=== PATIENT | female | born 1955 | race Caucasian/White ===

== ENCOUNTER → 2021-05-30 17:31 | Outpatient (CLI) | payer OTHER, SELFPAY ==
--- NOTE | ~2021-05-30 | DEXA_ITS ---
Bone Density Report Name: Kristin Cheng Age: 66 Sex: Female Ethnicity: White Date of : 1955 Indication: osteopenia; height loss; postmenopausal Referring Provider: Noemi Abdalla Study: Bone densitometry was performed. Exam Date: May 30, 2021 Accession number: [id number] Bone Density: Region BMD T-score Z-score Classification AP Spine (L1-L4) 0.947 -0.9 0.9 Normal Femoral Neck (Left) 0.604 -2.2 -0.6 Osteopenia Total Hip (Left) 0.710 -1.9 -0.6 Osteopenia Femoral Neck (Right) 0.642 -1.9 -0.3 Osteopenia Total Hip (Right) 0.776 -1.4 -0.1 Osteopenia Total Hip Mean 0.743 -1.7 -0.4 Osteopenia World Health Organization criteria for BMD impression classify patients as: Normal (T-score at or above -1.0), Osteopenia (T-score between -1.0 and -2.5), or Osteoporosis (T-score at or below -2.5). 10-year Fracture Risk(1): Major Osteoporotic Fracture 12% Hip Fracture 2.0% Reported Risk Factors: [place] (), Neck BMD=0.604, BMI=25.6 (1) FRAX(R) Version 3.08. Fracture probability calculated for an untreated patient. Fracture probability may be lower if the patient has received treatment. Previous Exams: Region Exam Age BMD T-score BMD Change BMD Change Date g/cm2 vs Baseline vs Previous AP Spine(L1-L4) 05/30/2021 66 0.947 -0.9 -0.158* -0.027* 01/14/2016 60 0.974 -0.7 -0.131* -0.048* 12/08/2011 56 1.022 -0.2 -0.083* -0.083* 01/28/2008 52 1.105 0.5 Total Hip(Left) 05/30/2021 66 0.710 -1.9 -0.189* -0.012 01/14/2016 60 0.722 -1.8 -0.177* -0.034* 12/08/2011 56 0.756 -1.5 -0.143* -0.143* 01/28/2008 52 0.899 -0.4 Total Hip(Right) 05/30/2021 66 0.776 -1.4 -0.226* -0.037* 01/14/2016 60 0.813 -1.1 -0.189* -0.027 12/08/2011 56 0.839 -0.8 -0.163* -0.163* 01/28/2008 52 1.002 0.5 *Denotes significance at 95% confidence level, LSC for AP Spine = 0.022 g/cm2, LSC for Total Hip = 0.027 g/cm2 Clinical Information Provided by Patient: Has used the following medications: Vitamin D, Calcium, MTV Patient maximum height was 65.5 Menopause Age: 52 Drinks caffeinated beverages Onset of menses at age 13 Number of children 1 Impression: The patient has low bone mass, based on the Left Femoral Neck T-score. The patient has an estimated ten-year risk of h
== END ==
PROVIDERS: Visit Provider Obstetrics & Gynecology
DX: Z13.820 Encounter for screening for osteoporosis (principal); M85.852 Other specified disorders of bone density and structure, left thigh; M85.851 Other specified disorders of bone density and structure, right thigh
CPT/HCPCS: 77080

== ENCOUNTER 2022-07-07 13:31 | Emergency (ER) | payer OTHER, SELFPAY ==
--- NOTE | 2022-07-07 13:34 | ED.EYEPROB ---
HPI - Eye Problem General Chief complaint: Eye Problems Stated complaint: Pain in right eye Time Seen by Provider: 07/07/22 13:34 Source: patient Mode of arrival: ambulatory Limitations: no limitations History of Present Illness HPI Narrative: Ms. Cheng is a 67-year-old female patient presenting to the clinic today with complaints of right eye pain x1 to 2 days She reports she has pain to the right upper lateral eyelid she is unsure if she has any pain in her eye. She denies getting anything in her eye or any injury to her right eye. She denies any eye drainage. Denies any fever or chills Related Data Allergies Allergy/AdvReac Type Severity Reaction Status Date / Time No Known Allergies Allergy Mild Verified 07/07/22 13:42 Review of Systems Review of Systems: Pertinent positives per HPI. Patient denies any fever, chills, rash, headache, visual changes, dizziness, cough, runny nose, sore throat, shortness of breath, chest pain, palpitations, nausea, vomiting, diarrhea, constipation, abdominal pain, or any urinary issues. [facility] Family History Family History Mother Family history of pancreatic cancer Father Family history of lung cancer Social History Social History Smoking status: Never smoker Alcohol intake: current Comments At the time of my signature, I reviewed and agree with the nursing past medical, surgical, social, and family history. There is no relevant family history pertinent to the patient complaint. Exam Narrative: General: Well-developed, well nourished, in no apparent distress Head: Normocephalic, atraumatic Eyes: Pupils equally round and reactive to light bilaterally, EOM intact, sclera and conjunctive clear, no discharge, mild right upper eyelid swelling with tenderness to the lateral aspect of the outer eyelid, no visible pustule or lesions seen. No foreign body noted, has a small lesion to the right lower outer lid but this is nontender. Patient has mascara that is new and possibly may be allergic reaction Ears: TMs intact and clear, ear canals clear, no drainage, grossly hearing normal. Nose: Nares patent, no discharge, no inflammation, no sinus tenderness. Mouth: Oropharynx without lesions or masses, good dentition, MMM. Neck: Supple, trachea midline, no enlargement of anterior or posterior cervical nodes, no thyroid masses or goiter palpable. Cardio: Regular rate and rhythm, s1 and s2 normal, no murmur appreciated. Resp: Clear to auscultation bilaterally anteriorly and posteriorly, no rhonchi, rales, wheezing or rubs Course Course Emergency Course: Portions of this record may have been created with voice recognition software. Level of Care: Express Care Visit Vital Signs Vital signs: Vital signs reviewed MDM - Eye Problem MDM Narrative Medical decision making narrative: At the time of visit patient was resting comfortably on the exam table. Logan lamp exam performed and was negative for any sign of corneal abrasion. No obvious foreign body noted in the eye. Does have a small lesion to the right lower eyelid however this is not where the patient's pain is she has pain to the right upper eyelid where it is mildly swelling. No obvious pustule or lesion noted to this part I suspect the patient may be having allergic reaction to her mascara since this is relatively new. I will place her on a prescription for some TobraDex just to cover any source of bacteria as well as use of the steroid. Supportive measures were discussed with the patient and she voiced understanding of discharge instructions. Discharge Plan Discharge Clinical Impression: Pain and swelling of eyelid of right eye Patient Disposition: Home, Self-Care Condition: Stable Instructions: Antibiotic Form, Eye Pain (ED) Additional Instructions: Apply TobraDex eye drops as prescribed
[2022-07-07 13:42] VITALS: BP 158/70; PULSE 71; RESP 16; TEMP 36.9; O2SAT 99
[2022-07-07] MEDS: FLUORESCEIN SOD 1 MG/STRIP EACH EYE (14:00)
[2022-07-07] MEDS: TETRACAINE HCL 0.5% OPHTH SOLN 4 ML BTL 1 DROP EACH EYE (14:00)
[2022-07-07] MEDS: DACRIOSE EYE IRRIGATION 118 ML BOTTLE 30 ML RIGHT EYE (14:00)
== END 2022-07-07 14:10 | disposition home or self-care (01) ==
PROVIDERS: Emergency Provider Nurse Practitioner Family; PCP Family Medicine Adolescent Medicine
DX: H57.11 Ocular pain, right eye (principal); H02.841 Edema of right upper eyelid
CPT/HCPCS: 99213; A9270; G0463

== ENCOUNTER → 2023-09-21 09:38 | Outpatient (CLI) | payer OTHER, SELFPAY ==
--- NOTE | ~2023-09-21 | DEXA_ITS ---
Bone Density Report Name: KETAN PATRICK Age: 68 Sex: Female Ethnicity: White Date of : 1955 Indication: osteopenia; height loss; prior fracture; postmenopausal Referring Provider: Noemi Abdalla Study: Bone densitometry was performed. Exam Date: September 21, 2023 Accession number: [id number] Bone Density: Region BMD T-score Z-score Classification AP Spine (L1-L4) 0.966 -0.7 1.3 Normal Femoral Neck (Left) 0.588 -2.3 -0.6 Osteopenia Total Hip (Left) 0.712 -1.9 -0.5 Osteopenia Femoral Neck (Right) 0.624 -2.0 -0.3 Osteopenia Total Hip (Right) 0.787 -1.3 0.1 Osteopenia Total Hip Mean 0.750 -1.6 -0.2 Osteopenia World Health Organization criteria for BMD impression classify patients as: Normal (T-score at or above -1.0), Osteopenia (T-score between -1.0 and -2.5), or Osteoporosis (T-score at or below -2.5). 10-year Fracture Risk(1): Major Osteoporotic Fracture 20% Hip Fracture 4.1% Reported Risk Factors: [place] (), Neck BMD=0.588, BMI=25.7, previous fracture (1) FRAX(R) Version 3.08. Fracture probability calculated for an untreated patient. Fracture probability may be lower if the patient has received treatment. Previous Exams: Region Exam Age BMD T-score BMD Change BMD Change Date g/cm2 vs Baseline vs Previous AP Spine(L1-L4) 09/21/2023 68 0.966 -0.7 -0.140* 0.019 05/30/2021 66 0.947 -0.9 -0.158* -0.027* 01/14/2016 60 0.974 -0.7 -0.131* -0.048* 12/08/2011 56 1.022 -0.2 -0.083* -0.083* 01/28/2008 52 1.105 0.5 Total Hip(Left) 09/21/2023 68 0.712 -1.9 -0.186* 0.003 05/30/2021 66 0.710 -1.9 -0.189* -0.012 01/14/2016 60 0.722 -1.8 -0.177* -0.034* 12/08/2011 56 0.756 -1.5 -0.143* -0.143* 01/28/2008 52 0.899 -0.4 Total Hip(Right) 09/21/2023 68 0.787 -1.3 -0.215* 0.011 05/30/2021 66 0.776 -1.4 -0.226* -0.037* 01/14/2016 60 0.813 -1.1 -0.189* -0.027 12/08/2011 56 0.839 -0.8 -0.163* -0.163* 01/28/2008 52 1.002 0.5 *Denotes significance at 95% confidence level, LSC for AP Spine = 0.022 g/cm2, LSC for Total Hip = 0.027 g/cm2 Clinical Information Provided by Patient: Has had a low trauma fracture Has used the following medications: Vitamin D, Calcium, MTV Patient maximum height was 65.5 Menopause Age: 53 No regular weight melissa
== END ==
PROVIDERS: PCP Obstetrics & Gynecology; Visit Provider Obstetrics & Gynecology
DX: Z78.0 Asymptomatic menopausal state (principal); M85.89 Other specified disorders of bone density and structure, multiple sites
CPT/HCPCS: 77080

== ENCOUNTER 2024-07-29 02:34 | Day surgery (SDC) | payer OTHER, SELFPAY ==
[2024-07-07 14:41] VITALS: BMI 24.7
[2024-07-29 06:49] VITALS: BP 160/74; PULSE 70; RESP 18; TEMP 36.6; O2SAT 98; BMI 23.9
[2024-07-29] MEDS: LACTATED RINGERS 1,000 ML 150 ML IV CONT (07:08)
--- NOTE | 2024-07-29 08:02 | WPDANESEPPF ---
Anes - Initial Pre Proc Eval Procedure: Operation Date: 07/29/24 08:30 Proposed Procedures p Esophagogastroduodenoscopy & Colonoscopy - Cristo Adams MD Date/Time: 07/29/24 08:02 Surgeon: Cristo Adams MD Pre Op Diagnosis: Dysphagia, GERD, Pers. Hx. colon Polyps Patient Data Age: 69 Gender: F Height: 1.63 m Weight: 63.2 kg Last Vital Signs Temp 97.9 F 07/29/24 06:49 Pulse 70 07/29/24 06:49 Resp 18 07/29/24 06:49 BP 160/74 H 07/29/24 06:49 Pulse Ox 98 07/29/24 06:49 O2 Del Method Room Air 07/29/24 06:49 Allergies Allergy/AdvReac Type Severity Reaction Status Date / Time No Known Allergies Allergy Mild Verified 07/29/24 06:57 Home Medications Medication Instructions Recorded Confirmed Type alendronate 35 mg tablet 35 mg PO WEEKLY 04/07/24 07/29/24 History calcium carbonate (Calcium 500) 500 mg PO DAILY 04/07/24 07/29/24 History cholecalciferol (vitamin D3) 10 10 mcg PO DAILY 04/07/24 07/29/24 History mcg (400 unit) capsule (Vitamin D3) magnesium 250 mg tablet 250 mg PO DAILY 04/07/24 07/29/24 History multivitamin 1 tablet PO .TIW 04/07/24 07/29/24 History omeprazole 20 mg capsule,delayed 40 mg PO DAILY #90 caps 04/07/24 07/29/24 Rx release colestipol 1 gram tablet 1 g PO DAILY #30 tabs 05/06/24 07/29/24 Rx ondansetron HCl 4 mg tablet 4 mg PO Q8H PRN nausea and 05/06/24 07/29/24 Rx vomiting #10 tabs Patient hx anesthesia problems: none Family hx anesthesia problems: none Results Review: All pre-operative results and documents have been reviewed as part of the pre-operative evaluation. [facility] Past Medical History Medical History Gastroesophageal reflux disease Irritable bowel syndrome Osteopenia Family History Family History Mother Family history of pancreatic cancer Heart problem Father Family history of lung cancer Alcoholism Other Diabetes mellitus Hypertension Heart problem Grandparent Breast cancer Grandparent Cerebrovascular accident Social History Social History Smoking status: Never smoker Alcohol intake: never Alcohol use details: States she drinks wine very seldom Substance use: never Substance use type: does not use Living arrangements: alone Spiritual care concerns: No Anes - Eval Final PreProcedure Day of Procedure 07/29/24 08:02 Patient weight: normal Heart: regular rate and rhythm Lungs: clear to auscultation Airway: Mallampati scale class II Neurological: alert and oriented Last oral intake: >/= 8 hours ASA classification: II Emergent: no Anesthetic plan: proceed Anesthesia type and monitoring: general GIVS and standard monitoring Results Review: All pre-operative results and documents have been reviewed as part of the pre-operative evaluation. Informed Consent: The patient's anesthetic plan and its attendant risks and benefits were discussed with the patient/family/POA. Questions were solicited and answers provided to the satisfaction of the patient/family/POA.
--- NOTE | 2024-07-29 08:07 | PM.HPGS ---
History of Present Illness History of Present Illness Consent: Risks, benefits, and alternatives have been discussed and questions answered. Patient agrees to proceed with procedure. Chief complaint: Dysphagia, GERD, Pers. Hx. colon Polyps Narrative: Kristin Cheng is a 69 year old female here for egd/colonoscopy, last time had both was 10 years ago, she has more gerd symptom using omeprazole every 2-3 days Review of Systems Review of Systems: All systems reviewed & are unremarkable except as noted in HPI and below PMFSH Past Medical History Medical History Gastroesophageal reflux disease Irritable bowel syndrome Osteopenia Family History Family History Mother Family history of pancreatic cancer Heart problem Father Family history of lung cancer Alcoholism Other Diabetes mellitus Hypertension Heart problem Grandparent Breast cancer Grandparent Cerebrovascular accident Social History Social History Smoking status: Never smoker Alcohol intake: never Alcohol use details: States she drinks wine very seldom Substance use: never Substance use type: does not use Living arrangements: alone Spiritual care concerns: No Meds Home Medications and Allergies Home Medications Medication Instructions Recorded Confirmed Type alendronate 35 mg tablet 35 mg PO WEEKLY 04/07/24 07/29/24 History calcium carbonate (Calcium 500) 500 mg PO DAILY 04/07/24 07/29/24 History cholecalciferol (vitamin D3) 10 10 mcg PO DAILY 04/07/24 07/29/24 History mcg (400 unit) capsule (Vitamin D3) magnesium 250 mg tablet 250 mg PO DAILY 04/07/24 07/29/24 History multivitamin 1 tablet PO .TIW 04/07/24 07/29/24 History omeprazole 20 mg capsule,delayed 40 mg PO DAILY #90 caps 04/07/24 07/29/24 Rx release colestipol 1 gram tablet 1 g PO DAILY #30 tabs 05/06/24 07/29/24 Rx ondansetron HCl 4 mg tablet 4 mg PO Q8H PRN nausea and 05/06/24 07/29/24 Rx vomiting #10 tabs Allergies Allergy/AdvReac Type Severity Reaction Status Date / Time No Known Allergies Allergy Mild Verified 07/29/24 06:57 Vital Signs Vital Signs - 24 hr 07/29/24 06:49 Temperature 97.9 F Pulse Rate 70 Respiratory Rate 18 Blood Pressure 160/74 H Pulse Oximetry 98 Oxygen Delivery Room Air Exam Const: General: comfortable and no acute distress HENMT: Face/Nose/Sinus: Normal nares present Eyes: General: appearance normal, both eyes and all related structures Neck: Neck: no JVD Resp: Auscultation: clear to auscultation bilaterally Cardio: Rate: regular rate Rhythm: regular rhythm GI: Inspection: non-distended GI Palp: Yes Soft to palpation Skin: General skin exam: normal color Neuro: General: gait normal Speech: normal speech Extrem: General: normal to inspection Psych: Mental Status: mental status grossly normal Assessment and Plan Assessment and plan (1) Gastroesophageal reflux disease: Code(s): K21.9 - Gastro-esophageal reflux disease without esophagitis Status: Acute Assessment and Plan: egd using ppi as needed (2) Colon cancer screening: Code(s): Z12.11 - Encounter for screening for malignant neoplasm of colon Status: Acute Assessment and Plan: colonoscopy
--- NOTE | 2024-07-29 08:25 | SUR.OPER ---
EGD [id number]. Colon start time 08.
[2024-07-29 08:38] VITALS: BP 130/66; PULSE 74; RESP 17; O2SAT 100
[2024-07-29 08:48] VITALS: BP 129/65; PULSE 66; RESP 27; O2SAT 100
[2024-07-29 08:58] VITALS: BP 154/70; PULSE 62; RESP 15; O2SAT 100
== END 2024-07-29 09:09 | disposition home or self-care (01) ==
PROVIDERS: PCP Nurse Practitioner Family; Referring Provider Nurse Practitioner; Visit Provider Internal Medicine Gastroenterology
PROC: 0DJ08ZZ Inspection of Upper Intestinal Tract, Via Natural or Artificial Opening Endoscopic (ICD-10-PCS; CPT 43235; principal; 2024-07-29 08:30)
DX: Z12.11 Encounter for screening for malignant neoplasm of colon (principal); K64.8 Other hemorrhoids; K57.30 Diverticulosis of large intestine without perforation or abscess without bleeding; K21.9 Gastro-esophageal reflux disease without esophagitis; K44.9 Diaphragmatic hernia without obstruction or gangrene; K22.2 Esophageal obstruction; K29.70 Gastritis, unspecified, without bleeding; K31.7 Polyp of stomach and duodenum; K58.9 Irritable bowel syndrome, unspecified; M85.88 Other specified disorders of bone density and structure, other site; Z79.82 Long term (current) use of aspirin; Z86.010 Personal history of colon polyps; Z80.1 Family history of malignant neoplasm of trachea, bronchus and lung; Z80.0 Family history of malignant neoplasm of digestive organs; Z80.3 Family history of malignant neoplasm of breast; Z82.49 Family history of ischemic heart disease and other diseases of the circulatory system
CPT/HCPCS: 43249; 45378; 88305; C1726; J2001; J2704; J7120

== ENCOUNTER 2024-11-06 07:17 | Outpatient (CLI) | payer OTHER, SELFPAY ==
[2024-11-06 08:17] LABS: Hematocrit 39.8 % (37.0-47.0); INR 0.9; Mean Corpuscular HGB Conc 32.7 g/dl (32-36); Mean Corpuscular Hemoglobin 29.9 pg (26-34); Mean Corpuscular Volume 91.5 fl (80-100); Mean Platelet Volume 9.3 fl (7.4-10.4); Platelet Count Result 428 k/mm3 (150-375); Prothrombin Time 12.8 Seconds (11.1-14.7); Red Blood Count 4.35 M/mm3 (4.2-5.4); Red Cell Distribution Width 13.3 % (11.5-14.5); White Blood Count 6.8 K/mm3 (4.5-10.0)
[2024-11-06 08:22] LABS: Alanine Aminotransferase 17 U/L (6-35); Albumin Level 4.3 g/dL (3.5-5.1); Alkaline Phosphatase 62 U/L (38-126); Anion Gap 4 mmol/L (4-12); Aspartate Amino Transferase 25 U/L (14-36); Blood Urea Nitrogen 14 mg/dL (7-17); Calcium 9.2 mg/dL (8.4-10.2); Carbon Dioxide 27 mmol/L (22-30); Chloride 107 mmol/L (98-107); Estimated Glomerular Filt Rate > 60; Glucose 102 mg/dL (65-110); Sodium 138 mmol/L (137-145)
== END 2024-11-06 07:18 | disposition home or self-care (01) ==
LOC: ANHLAB 07:19
PROVIDERS: PCP Nurse Practitioner Family; Visit Provider Nurse Practitioner
DX: K76.0 Fatty (change of) liver, not elsewhere classified (principal)
CPT/HCPCS: 36415; 80053; 85027; 85610

== ENCOUNTER 2024-12-23 07:56 | Outpatient (CLI) | payer MEDICARE, OTHER, SELFPAY ==
--- OUTSIDE RECORDS SUMMARY | 2024-12-23 08:00 | XMS_ITS | Data Portability ---
Author Organization [facility] [place] Address [address] [place] [address] Assessment Encounter Date Assessment Date Assessment LastModified by Organization Details LastModified Time 09/10/2020 09/10/2020 Annual gynecological exam performed. Patient will come back in a year unless there are new symptoms. Not available 09/10/2020 09:27:19 05/10/2022 05/10/2022 Annual gynecological exam performed. Patient will come back in a year unless there are new symptoms. Not available 05/10/2022 09:34:28 05/23/2023 05/23/2023 Annual gynecological exam performed. Patient will come back in a year unless there are new symptoms. Not available 05/23/2023 09:26:56 09/24/2024 09/24/2024 Annual gynecological exam performed. Patient will come back in a year unless there are new symptoms. Not available 09/24/2024 09:28:49 Plan of Treatment Reminders Order Date Submit Date Provider Last Modified By Organization Details Last Modified Time Details Appointments None recorded. Lab vitamin D, 25-hydroxy, total, serum 2019 020 [email or web address] [facility] ([facility]), [address], [place], [address], 09:44:06 CBC 2019 020 [email or web address] [facility] ([facility]), [address] [facility] [address] , [address], [place], [address], 1 12:35:48 TSH, serum or plasma 2019 020 [email or web address] [facility] ([facility]), [address] [place] [address] [address], [place], [address], 1 12:35:48 CMP, serum or plasma 2019 020 [email or web address] [facility]), [address] [place] [address] [address], [place], [address], 1 12:35:48 lipid panel, serum 2019 020 [email or web address] [facility] ([facility]), [address] [place] [address] [address], [place], [address], 1 12:35:48 urinalysis, dipstick 2019 020 [email or web address] [place], [facility] [address], [address], [place], [address], 0 22:10:23 Referral None recorded. Procedures None recorded. Surgeries None recorded. Imaging None recorded. Medication Orders alendronate 35 mg tablet 2022 024 [id number], [address] [facility], [place], [place], [id number], 4 09:30:46 Patient TargetsNo targets recorded. Patient InstructionsNo instructions recorded. Reason for Referral None Reported. Results Created Date Observation Date Name Description Value Unit Range Abnormal Flag Note LastModifiedBy Organization Detail LastModifiedTime 09/10/2009/14/2020 cultu re, urine specimen source Urine - Void Not Available [facility] ([facility]) [address] [place] [address] [address], [place], [address], 09/14/2020 04:45:50 09/10/20 20 09/14/2020 cultu re, urine culture, urine See Below No growt h Not Available [facility] ([facility]) [address], [place], [address], 09/14/2020 04:45:50 09/10/20 20 09/14/2020 pap, LB Pap test thin prep Negati ve for Intrae pithel ial Lesion or Malign katey normal ACCES CARLOZ #: [id number] Sourc e: Cervi xiao/E ndoce rvica l LMP: 11/18 Date Taken : 09/10 Speci men Type: ThinP rep Vial Date Repor alexander: 09/14 Clini xiao Data: Cytot ech: Jefe Kaufman z, CT( CP) Date Repor alexander: 09/14 Speci men Adequ acy: Satis facto ry for evalu ation Gener al Categ oriza tion: NEGAT CARMEN FOR INTRA EPITH ELIAL LESIO N OR MALIG ANAY Inter preta tion/ Resul t: Atrop hy This speci men has been rose zed by the ThinP rep Imagi ng Syste m, an inter activ e compu ter syste m which david ts the lab in the scree tiffany of ThinP rep Pap Test slide s. Follo wing imagi ng, the slide was revie wed by a Cytot echno logis t and/o r Patho logis t. End of Repor t Techn ical servi leonard provi ded by [facility] log[facility] [employer], [address] [place] [address] Emil Ribeiro MD, Labor atory Direc tor. Case revie wed and diagn osis rende red at [facility] iated Patho logis [employer] [facility], d/b/a Path [facility], [address] [place] [address] Emil Ribeiro MD, Labor atory Direc tor. CONFI DENTI AL Not Available [facility] ([facility]) [address], [place], [address], 09/14/2020 10:56:54 09/10/2009/10/2020 urina lysis , dipst ick Leukocytes TRACE Not Available [facility] [address], [place], [address], 09/10/2020 09:38:36 09/10/20 20 09/10/2020 urina lysis , dipst ick Blood +++ Not Available [place] [address], [place], [address], 09/10/2020 09:38:36 05/10/20 21 05/10/2021 CBC w/ auto diff WBC 6.3 10'3/ uL 3.6-10 .2 Not Available [facility] (Lab) [address], [place], [address], 05/11/2021 04:09:05 05/10/20 21 05/10/2021 CBC w/ auto diff RBC 4.50 10'6/ uL (based on docume nted legal sex) 4.10-5 .30 Not Available [facility] (Lab) [address], [place], [address], 05/11/2021 04:09:05 05/10/20 21 05/10/2021 CBC w/ auto diff HGB 13.3 g/dL (based on docume nted legal sex) 11.9-1 5.8 Not Available [facility] (Lab) [address], [place], [address], 05/11/2021 04:09:05 05/10/20 21 05/10/2021 CBC w/ auto diff HCT 41.3 % (based on docume nted legal sex) 37.4-4 8.3 Not Available [facility] (Lab) [address] [place], [address], 05/11/2021 04:09:05 05/10/20 21 05/10/2021 CBC w/ auto diff MCV 93.0 fL 82.0-9 9.0 Not Available [facility] (Lab) [address], [place], [address], 05/11/2021 04:09:05 05/10/20 21 05/10/2021 CBC w/ auto diff MCH 30.0 pg 27.0-3 3.0 Not Available [facility] (Lab) [address] [facility], [place], [address], 05/11/2021 04:09:05 05/10/20 21 05/10/2021 CBC w/ auto diff MCHC 32.0 g/dL 32.0-3 6.0 Not Available [facility] (Lab) [address], [place], [address], 05/11/2021 04:09:05 05/10/20 21 05/10/2021 CBC w/ auto diff RDW 13.0 % 11.0-1 5.0 Not Available [facility] (Lab) [address], [place], [address], 05/11/2021 04:09:05 05/10/20 21 05/10/2021 CBC w/ auto diff plt 464 10'3/ uL 150-45 0 high Not Available [facility] (Lab) [address] [facility], [place], [address], 05/11/2021 04:09:05 05/10/20 21 05/10/2021 CBC w/ auto diff MPV 9.7 fL Not Available [facility] (Lab) [address], [place], [address], 05/11/2021 04:09:05 05/10/20 21 05/10/2021 CBC w/ auto diff NRBC's 0.00 % 0 Not Available [facility] (Lab) [address] [place], [address], 05/11/2021 04:09:05 05/10/20 21 05/10/2021 CBC w/ auto diff absolute NRBCs 0.0 10'3/ uL 0 Not Available [facility] (Lab) [address] [place], [address], 05/11/2021 04:09:05 05/10/20 21 05/10/2021 CBC w/ auto diff neutrophils 54.0 % 37.0-7 2.0 Not Available [facility] (Lab) [address] [place], [address], 05/11/2021 04:09:05 05/10/20 21 05/10/2021 CBC w/ auto diff lymphocytes 35.0 % 16.0-4 8.0 Not Available [facility] (Lab) [address] [place], [address], 05/11/2021 04:09:05 05/10/20 21 05/10/2021 CBC w/ auto diff monocytes 9.0 % 4.0-14 .0 Not Available [facility] (Lab) [address] [place], [address], 05/11/2021 04:09:05 05/10/20 21 05/10/2021 CBC w/ auto diff eosinophils 1.0 % 0.0-9. 0 Not Available [facility] (Lab) [address], [place], [address], 05/11/2021 04:09:05 05/10/20 21 05/10/2021 CBC w/ auto diff basophils 1.0 % 0.0-2. 0 Not Available [facility] (Lab) [address] [place], [address], 05/11/2021 04:09:05 05/10/20 21 05/10/2021 CBC w/ auto diff immature granulocytes 0.0 % no define d refere nce range Not Available [facility] (Lab) [address] [place], [address], 05/11/2021 04:09:05 05/10/20 21 05/10/2021 CBC w/ auto diff absolute neutrophils 3.5 10'3/ uL 1.1-6. 0 Not Available [facility] (Lab) [address] [place], [address], 05/11/2021 04:09:05 05/10/20 21 05/10/2021 CBC w/ auto diff absolute lymphocytes 2.2 10'3/ uL 0.7-3. 4 Not Available [facility] (Lab) [address], [place], [address], 05/11/2021 04:09:05 05/10/20 21 05/10/2021 CBC w/ auto diff absolute monocytes 0.5 10'3/ uL 0.3-1. 0 Not Available [facility] (Lab) [address], [place], [address], 05/11/2021 04:09:05 05/10/20 21 05/10/2021 CBC w/ auto diff absolute eosinophils 0.1 10'3/ uL 0.0-0. 6 Not Available [facility] (Lab) [address] [place], [address], 05/11/2021 04:09:05 05/10/20 21 05/10/2021 CBC w/ auto diff absolute basophils 0.1 10'3/ uL 0.0-0. 1 Not Available [facility] (Lab) [address] [place], [address], 05/11/2021 04:09:05 05/10/20 21 05/10/2021 CBC w/ auto diff absolute immature granulocytes 0.00 10'3/ uL 0.00-0 .10 2020 2:11 AM: P indic ates parti al resul ts on a panel have been relea sed. Addit ional resul ts will follo w. 2020 2:11 AM: This resul t has been final verif ied. No addit ional or hamilton ed resul ts are expec alexander. Not Available [facility] (Lab) [address], [place], [address], 05/11/2021 04:09:05 05/10/20 21 05/10/2021 lipid panel , blood total cholesterol 187 mg/dL 0-199 Not Available [facility] (Lab) [address] [place], [address], 05/11/2021 04:09:05 05/10/20 21 05/10/2021 lipid panel , blood triglyceride s 117 mg/dL 0.00-1 50.00 NCEP Refer ence Value s for Trigl yceri quinton: Wendy l: <150 mg/dL Borde rline High: 150 - 199 mg/dL High: 200 - 499 mg/dL Very High: >/= 500 mg/dL Not Available [facility] (Lab) [address] [place], [address], 05/11/2021 04:09:05 05/10/20 21 05/10/2021 lipid panel , blood HDL cholesterol 62 mg/dL 23-92 Not Available [facility] (Lab) [address] [place], [address], 05/11/2021 04:09:05 05/10/20 21 05/10/2021 lipid panel , blood LDL cholesterol 102 mg/dL 0-99 high Cutof f value s recom jacques d by the Natwm nal Bernice stero l Educa tion Progr am: YESENIA ABLE: Bernice stero l <200 mg/dL LDL <100 mg/dL BORDE RLINE : Bernice stero l 200-2 39 mg/dL LDL 101-1 59 mg/dL HIGHE R RISK: Bernice stero l >240 mg/dL LDL >160 mg/dL , HDL <40 mg/dL Not Available [facility] (Lab) [address] [place], [address], 05/11/2021 04:09:05 05/10/20 21 05/10/2021 lipid panel , blood non-HDL cholesterol 125 mg/dL no refere nce range A reaso nable goal for non-H DL bernice stero l is one that is 30 mg/dL highe r than the LDL bernice stero l goal. Not Available [facility] (Lab) [address], [place], [address], 05/11/2021 04:09:05 05/10/20 21 05/10/2021 lipid panel , blood chol/HDL ratio 3.0 . 0.0-5. 0 Not Available [facility] (Lab) [address], [place], [address], 05/11/2021 04:09:05 05/10/20 21 05/10/2021 CMP, serum or plasm a sodium 141 mmol/ L 136-14 5 Not Available [facility] (Lab) [address], [place], [address], 05/11/2021 04:09:06 05/10/20 21 05/10/2021 CMP, serum or plasm a potassium 4.5 mmol/ L 3.5-5. 1 Not Available [facility] (Lab) [address] [place], [address], 05/11/2021 04:09:06 05/10/20 21 05/10/2021 CMP, serum or plasm a chloride 107 mmol/ L 98-107 Not Available [facility] (Lab) [address] [place], [address], 05/11/2021 04:09:06 05/10/2005/10/2021 CMP, serum or plasm a carbon dioxide 26 mmol/ L 21-31 Not Available [facility] (Lab) [address] [place], [address], 05/11/2021 04:09:06 05/10/20 21 05/10/2021 CMP, serum or plasm a anion gap 8 mmol/ L 4-13 Not Available [facility] (Lab) [address] [place], [address], 05/11/2021 04:09:06 05/10/20 21 05/10/2021 CMP, serum or plasm a blood urea nitrogen 10 mg/dL 7-25 Not Available [facility] (Lab) [address] [place], [address], 05/11/2021 04:09:06 05/10/20 21 05/10/2021 CMP, serum or plasm a creatinine 0.62 mg/dL 0.60-1 .30 Not Available [facility] (Lab) [address], [place], [address], 05/11/2021 04:09:06 05/10/20 21 05/10/2021 CMP, serum or plasm a GFR () 117 mL/mi n/1.7 3_m2 60-300 Not Available [facility] (Lab) [address] [place], [address], 05/11/2021 04:09:06 05/10/20 21 05/10/2021 CMP, serum or plasm a GFR (others) 96 mL/mi n/1.7 3_m2 60-300 Not Available [facility] (Lab) [address] [place], [address], 05/11/2021 04:09:06 05/10/20 21 05/10/2021 CMP, serum or plasm a calcium 9.7 mg/dL 8.6-10 .2 Not Available [facility] (Lab) [address] [place], [address], 05/11/2021 04:09:06 05/10/20 21 05/10/2021 CMP, serum or plasm a glucose 93 mg/dL 70-100 Not Available [facility] (Lab) [address] [place], [address], 05/11/2021 04:09:06 05/10/20 21 05/10/2021 CMP, serum or plasm a protein, total 6.6 g/dL 6.4-8. 3 Not Available [facility] (Lab) [address], [place], [address], 05/11/2021 04:09:06 05/10/20 21 05/10/2021 CMP, serum or plasm a albumin 4.4 g/dL 3.5-5. 0 Not Available [facility] (Lab) [address] [place], [address], 05/11/2021 04:09:06 05/10/20 21 05/10/2021 CMP, serum or plasm a ALT 17 units /L 9-43 Not Available [facility] (Lab) [address] [place], [address], 05/11/2021 04:09:06 05/10/20 21 05/10/2021 CMP, serum or plasm a alkaline phosphatase 69 units /L 34-104 Not Available [facility] (Lab) [address] [place], [address], 05/11/2021 04:09:06 05/10/20 21 05/10/2021 CMP, serum or plasm a AST 17 units /L 13-39 Not Available [facility] (Lab) [address] [place], [address], 05/11/2021 04:09:06 05/10/20 21 05/10/2021 CMP, serum or plasm a bilirubin, total 0.7 mg/dL 0.2-1. 2 Not Available [facility] (Lab) [address] [place], [address], 05/11/2021 04:09:06 05/10/20 21 05/10/2021 TSH, serum or plasm a TSH 2.57 uIU/m L 0.30-5 .33 Not Available [facility] (Lab) [address] [place], [address], 05/11/2021 04:09:06 05/10/20 21 05/10/2021 vitam in D, 25-hy droxy , total , serum vitamin D, 25-hydroxy, total 25.1 NG/mL 30-80 low NOTE: Defic iency : <20 ng/mL Insuf ficie ncy: 20-29 ng/mL Optim um Level : 30-80 ng/mL Possi ble Toxic ity: >80 ng/mL Most patie nts with toxic ity have level s >150 ng/mL . Not Available [facility] (Lab) [address], [place], [address], 05/11/2021 04:09:06 05/10/20 21 05/10/2021 URINA LYSIS , WITH MICRO SCOPI C, REFLE X CULTU RE color, urine Yellow colorl ess, light yellow , yellow , dark yellow , straw Not Available [facility] (Lab) [address] [place], [address], 05/12/2021 08:05:35 05/10/20 21 05/10/2021 URINA LYSIS , WITH MICRO SCOPI C, REFLE X CULTU RE clarity, urine Slight ly Cloudy Not Available [facility] (Lab) [address] [place], [address], 05/12/2021 08:05:35 05/10/20 21 05/10/2021 URINA LYSIS , WITH MICRO SCOPI C, REFLE X CULTU RE glucose, urine Negati ve mg/dL negati ve Not Available [facility] (Lab) [address] [place], [address], 05/12/2021 08:05:35 05/10/20 21 05/10/2021 URINA LYSIS , WITH MICRO SCOPI C, REFLE X CULTU RE bilirubin, urine Negati ve mg/dL negati ve Not Available [facility] (Lab) [address] [place], [address], 05/12/2021 08:05:35 05/10/20 21 05/10/2021 URINA LYSIS , WITH MICRO SCOPI C, REFLE X CULTU RE ketones, urine Negati ve mg/dL negati ve Not Available [facility] (Lab) [address], [place], [address], 05/12/2021 08:05:35 05/10/20 21 05/10/2021 URINA LYSIS , WITH MICRO SCOPI C, REFLE X CULTU RE pH, urine 5.0 . 5.0-9. 0 Not Available [facility] (Lab) [address], [place], [address], 05/12/2021 08:05:35 05/10/20 21 05/10/2021 URINA LYSIS , WITH MICRO SCOPI C, REFLE X CULTU RE specific gravity, urine 1.019 . 1.001- 1.035 Not Available [facility] (Lab) [address], [place], [address], 05/12/2021 08:05:35 05/10/20 21 05/10/2021 URINA LYSIS , WITH MICRO SCOPI C, REFLE X CULTU RE blood, urine Small negati ve abnormal Not Available [facility] (Lab) [address] [place], [address], 05/12/2021 08:05:35 05/10/20 21 05/10/2021 URINA LYSIS , WITH MICRO SCOPI C, REFLE X CULTU RE protein, urine Negati ve mg/dL negati ve Not Available [facility] (Lab) [address] [place], [address], 05/12/2021 08:05:35 05/10/20 21 05/10/2021 URINA LYSIS , WITH MICRO SCOPI C, REFLE X CULTU RE urobilinogen , urine <2.0 mg/dL <2.0 Not Available [facility] (Lab) [address], [place], [address], 05/12/2021 08:05:35 05/10/20 21 05/10/2021 URINA LYSIS , WITH MICRO SCOPI C, REFLE X CULTU RE nitrite, urine Negati ve negati ve Not Available [facility] (Lab) [address], [place], [address], 05/12/2021 08:05:35 05/10/20 21 05/10/2021 URINA LYSIS , WITH MICRO SCOPI C, REFLE X CULTU RE leukocyte esterase, urine Large negati ve abnormal Not Available [facility] (Lab) [address], [place], [address], 05/12/2021 08:05:35 05/10/20 21 05/10/2021 URINA LYSIS , WITH MICRO SCOPI C, REFLE X CULTU RE WBC, urine 15-19 /hpf none, 0-5 abnormal Not Available [facility] (Lab) [address], [place], [address], 05/12/2021 08:05:35 05/10/20 21 05/10/2021 URINA LYSIS , WITH MICRO SCOPI C, REFLE X CULTU RE RBC, urine 0-2 /hpf none, 0-2 Not Available [facility] (Lab) [address], [place], [address], 05/12/2021 08:05:35 05/10/20 21 05/10/2021 URINA LYSIS , WITH MICRO SCOPI C, REFLE X CULTU RE bacteria, urine Trace /hpf none abnormal Not Available [facility] (Lab) [address] [place], [address], 05/12/2021 08:05:35 05/10/20 21 05/10/2021 URINA LYSIS , WITH MICRO SCOPI C, REFLE X CULTU RE squamous epithelial cells, urine Few /hpf none abnormal Not Available [facility] (Lab) [address], [place], [address], 05/12/2021 08:05:35 05/10/20 21 05/10/2021 URINA LYSIS , WITH MICRO SCOPI C, REFLE X CULTU RE non-squamous epi, urine Trace /hpf none abnormal Not Available [facility] (Lab) [address], [place], [address], 05/12/2021 08:05:35 05/10/20 21 05/10/2021 URINA LYSIS , WITH MICRO SCOPI C, REFLE X CULTU RE mucus, urine Modera te /hpf none, trace, few abnormal Urine Cultu re to follo w. Not Available [facility] (Lab) [address], [place], [address], 05/12/2021 08:05:35 05/10/20 21 05/10/2021 CULTU RE: URINE result report SEE RESULT S BELOW Test: Cultu re: Urine Speci men Sourc e: Urine Voide d Speci men Type: Urine Speci men Date: 2020 10:26 AM Resul t Date: 2020 7:02 AM Resul t Statu s: Final resul t Abnor mal: No Resul ting Lab: [facility] [address] [facility] [address] Tel: CULTU RE ----- ----- ----- --- No growt h in 1 day (dete ction level of 10,00 0 colon ies / ml.) Not Available [facility] (Lab) [address], [place], [address], 05/12/2021 08:05:36 05/10/20 22 05/10/2022 IMAGE GUIDE D PAP AND HPV REGAR DLESS image guided Pap, HPV regardless of Pap result SEE RESULT S BELOW CASE REPOR T: Cytol ogy Gynec ologi xiao Repor t Case: [id number] Autho ilsa g Provi reuben: Lyly Abdalla MD Colle cted: 05/10 1011 Order ing Locat ion: [place] Path[facility] Recei rosa isela: 05/11 0241 First Scree n: Ronna Calzada ay, CT Speci men: Scree tiffany Pap - Image d, Cervi x STATE MENT OF ADEQU ACY: Satis facto ry for evalu ation Trans forma tion zone compo nent canno t be defin itive ly ident ified due to the prese nce of atrop hy or other hormo nal hamilton es FINAL DIAGN OSIS: Negat carmen for Intra epith elial Lesio n or Johnnybhumika anay (NIL) . Atrop hic cell chloe sen. Elect bebeto cui jes d by Ronna Calzada, CT on 2021 at 10:31 AM ----- ----- ----- ----- ----- ----- ----- ----- ----- ----- ----- ----- ----- ----- ----- ----- ----- ---- HPV RESUL TS: HPV mRNA E6/E7 : No HPV mRNA Detec alexander NOTE: This high risk HPV mRNA assay detec ts fourt een high- risk HPV types (16, 18, 31, 33, 35, 39, 45, 51, 52, 56, 58, 59, 66, 68) witho ut diffe renti ation . COMME NT: Note: This speci men was revie wed by a Cytot echno logis t and/o r Patho logis t (as indic ated in this repor t) after evalu ation using the Thinp rep Imagi ng Syste m. CLINI XIAO INFOR MATIO N: Menst rual Statu s: LMP (if appli cable ): Clini xiao Histo ry/Pr eviou s Pap: Type of Neopl jamila (if appli cable ): Signi fican t Clini xiao Findi ngs: Other Histo ry: Hormo vivek (if appli cable ): PAP EDUCA MARIJA L NOTE: The Pap Test is a scree tiffany test with an inher ent false negat carmen rate. Liqui d-bas ed sampl ing may decre ase, but will not elimi brittany, false negat carmen resul ts. A negat carmen resul t does not precl ude the prese nce and/o r devel opmen t of disea se, since the prese nce of abnor mal cells in the sampl e depen ds on the locat ion of the lesio n and sampl ing techn ique. Abel nued regul ar scree tiffany is the best metho d of cance r preve ntion . If repor alexander cytol ogic findi ng do not corre late with physi xiao and/o r histo rical findi ngs, furth er inves tigat ion is recom jacques d, as clini france khan nted. Not Available [facility] (Lab) [address], [place], [address], 05/15/2022 11:33:27 05/23/20 23 05/23/2023 IMAGE GUIDE D PAP AND HPV REGAR DLESS image guided Pap, HPV regardless of Pap result SEE RESULT S BELOW CASE REPOR T: Cytol ogy Gynec ologi xiao Repor t Case: [id number] Autho ribeltran g Provi reuben: Lyly Abdalla MD Colle cted: 05/23 1254 Order ing Locat ion: [place] Patho [facility] Recei rosa isela: 05/24 0138 First Scree n: Do Kang ica Speci men: Scree tiffany Pap - Image d, Cervi x STATE MENT OF ADEQU ACY: Satis facto ry for evalu ation Trans forma tion zone compo nent canno t be defin itive ly ident ified due to the prese nce of atrop hy or other hormo nal hamilton es FINAL DIAGN OSIS: Negat carmen for Intra epith elial Daniel villegas or Saul mendoza (NIL) . Atrop hic cell chloe sen. Elect bebeto cui jes d by Do Kang ica on 023 at 10:40 AM ----- ----- ----- ----- ----- ----- ----- ----- ----- ----- ----- ----- ----- ----- ----- ----- ----- ---- HPV RESUL TS: HPV mRNA E6/E7 : No HPV mRNA Detec alexander NOTE: This high risk HPV mRNA assay detec ts fourt een high- risk HPV types (16, 18, 31, 33, 35, 39, 45, 51, 52, 56, 58, 59, 66, 68) witho ut diffe renti ation . COMME NT: This speci men was revie wed by a Cytot echno logis t and/o r Patho logis t (as indic ated in this repor t) after evalu ation using the Thinp rep Imagi ng Syste m. CLINI XIAO INFOR MATIO N: Menst rual Statu s: LMP (if appli cable ): Clini xiao Histo ry/Pr eviou s Pap: Type of Neopl jamila (if appli cable ): Signi fican t Clini xiao Findi ngs: Other Histo ry: Hormo vivek (if appli cable ): PAP EDUCA MARIJA L NOTE: The Pap Test is a scree tiffany test with an inher ent false negat carmen rate. Liqui d-bas ed sampl ing may decre ase, but will not elimi brittany, false negat carmen resul ts. A negat carmen resul t does not precl ude the prese nce and/o r devel opmen t of disea se, since the prese nce of abnor mal cells in the sampl e depen ds on the locat ion of the lesio n and sampl ing techn ique. Abel nued regul ar scree tiffany is the best metho d of cance r preve ntion . If repor alexander cytol ogic findi ng do not corre late with physi xiao and/o r histo rical findi ngs, furth er inves tigat ion is recom jacques d, as clini france warra nted. Not Available [facility] (Lab) [address], [place], [address], 05/24/2023 12:21:38 09/24/20 24 09/24/2024 IMAGE GUIDE D PAP AND HPV REGAR DLESS image guided Pap, HPV regardless of Pap result SEE RESULT S BELOW CASE REPOR T: Cytol ogy Gynec ologi xiao Repor t Case: [id number] Autho ilsa garrido Provi reuben: Lyly Abdalla MD Colle cted: 09/24 0939 Order ing Locat ion: [place] Patho yamilet Recei rosa isela: 09/25 0156 First Tiffanye n: Parmjit Anaya, CT Speci men: Kailash allen Pap - Image d, Cervi x STATE MENT OF ADEQU ACY: Satis facto ry for evalu ation Trans forma tion zone compo nent canno t be defin itive ly ident ified due to the prese nce of atrop hy or other hormo nal hamilton es ----- ----- ----- ----- ----- ----- ----- ----- ----- ----- ----- ----- ----- ----- ----- ----- ----- ---- FINAL DIAGN OSIS: Negat carmen for Intra epith elial Leswm villegas or Saul mendoza (NIL) . Atrop hic cell chloe rn. Elect bebeto cui jes d by Parmjit Anaya CT on 10/01 at 2:29 PM ----- ----- ----- ----- ----- ----- ----- ----- ----- ----- ----- ----- ----- ----- ----- ----- ----- ---- HPV RESUL TS: HPV mRNA E6/E7 : No HPV mRNA Detec alexander NOTE: This high risk HPV mRNA assay detec ts fourt een high- risk HPV types (16, 18, 31, 33, 35, 39, 45, 51, 52, 56, 58, 59, 66, 68) witho ut diffe renti ation . COMME NT: This speci men was revie wed by a Cytot echno logis t and/o r Patho logis t (as indic ated in this repor t) after evalu ation using the Thinp rep Imagi ng Syste m. CLINI XIAO INFOR MATIO N: Menst rual Statu s: LMP (if appli cable ): Clini xiao Histo ry/Pr eviou s Pap: Type of Neopl jamila (if appli cable ): Signi fican t Clini xiao Findi ngs: Other Histo ry: Hormo vivek (if appli cable ): PAP EDUCA MARIJA L NOTE: The Pap Test is a scree tiffany test with an inher ent false negat carmen rate. Liqui d-bas ed sampl ing may decre ase, but will not elimi brittany, false negat carmen resul ts. A negat carmen resul t does not precl ude the prese nce and/o r devel opmen t of disea se, since the prese nce of abnor mal cells in the sampl e depen ds on the locat ion of the lesio n and sampl ing techn ique. Abel nued regul ar scree tiffany is the best metho d of cance r preve ntion . If repor alexander cytol ogic findi ng do not corre late with physi xiao and/o r histo rical findi ngs, furth er inves tigat ion is recom jacques d, as clini france warra nted. Not Available [facility] (Lab) [address], [place], [address], 10/01/2024 15:33:44 10/03/20 20 10/03/2020 MAMMO , scree tiffany, bilat eral No observ ation record ed. [facility] [address], [place], [address], 04/13/2021 21:00:47 05/31/20 21 05/30/2021 DEXA No observ ation record ed. [facility] [address] [facility], [place], [address], 06/01/2021 20:19:41 06/14/20 22 06/14/2022 MAMMO , scree tiffany, bilat eral No observ ation record ed. [email or web address] [address], [place], [address], 05/27/2023 15:59:40 09/24/20 23 09/21/2023 DEXA No observ ation record ed. [email or web address] [facility] [address], [place], [address], 10/09/2023 14:59:28 10/08/20 MAMMO , scree tiffany, bilat eral No observ ation record ed. [facility] [address] [place], [address], 10/07/2024 16:06:39 11/04/20 24 11/04/2024 MAMMO , scree tiffany, bilat eral No observ ation record ed. [facility] [address] [place] [address], [address], 11/20/2024 11:58:04 11/06/20 24 11/04/2024 MAMMO , scree tiffany, bilat eral No observ ation record ed. [facility] [address] [place] [address], [place], [address], 11/20/2024 11:58:04 12/03/19 25 11/04/2024 MAMMO , scree tiffany, bilat eral No observ ation record ed. [facility] [address], [place], [address], 12/10/2024 09:50:51 Result Notes None recorded. 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) w/o abn findings; Recorded Elsewhere : No Locati on: [facility] So urce: EHR Chron ic: N Practic e ID: 0001 Bill able Time: 10:15:00 AM Not Available [facility] 17:33:13 Insomnia 632070857 Active 2012 Insomnia, Other;Rec orded Elsewhere : No Locati on: [facility] So urce: EHR Chron ic: N Practic e ID: 0001 Bill able Time: 03:45:00 PM Not Available [facility] 0 17:33:13 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 Proteinur ia;Record ed Elsewhere : No Locati on: [facility] So urce: EHR Chron ic: N Practic e ID: 0001 Bill able Time: 04:30:00 PM Not Available [facility] 0 17:33:14 Specializ ed medical examinati on Active 2012 Gynecolog ical Examinati on;Record ed Elsewhere : No Locati on: [facility] So urce: EHR Chron ic: N Practic e ID: 0001 Bill able Time: 04:30:00 PM Not Available [facility] 0 17:33:14 Body mass index 25-29 - overweigh t 846733401 Active 2015 Body mass index (BMI) 25.0-25.9 , adult;Rec orded Elsewhere : No Locati on: [facility] So urce: EHR Chron ic: N Practic e ID: 0001 Bill able Time: 08:30:00 AM Not Available [facility] 0 17:33:14 Evaluatio n finding Active 2018 Hematuria , unspecifi ed;Record ed Elsewhere : No Locati on: [facility] So urce: EHR Chron ic: N Practic e ID: 0001 Bill able Time: 08:30:00 AM Not Available [facility] 0 17:33:14 Constipat ion 65219297 Active 2012 Constipat ion, unspecifi ed;Record ed Elsewhere : No Locati on: [facility] So urce: EHR Chron ic: N Practic e ID: 0001 Bill able Time: 04:15:00 PM Not Available [facility] 0 17:33:14 Microscop ic hematuria 638676335 Active 2012 MICROSCOP IC HEMATURIA ;Recorded Elsewhere : No Locati on: [facility] So urce: EHR Chron ic: N Practic e ID: 0001 Bill able Time: 03:45:00 PM Not Available [facility] 0 17:33:14 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 [id number] 666605 Active 2016 Cervical low risk HPV DNA test positive; Recorded Elsewhere : No Locati on: [facility] So urce: EHR Chron ic: N Practic e ID: 0001 Bill able Time: 10:15:00 AM Not Available [facility] 0 17:33:14 Pelvic and perineal pain 031379279 Active 2016 Pelvic and perineal pain;Ronnie rded Elsewhere : No Locati on: [facility] So urce: EHR Chron ic: N Practic e ID: 0001 Bill able Time: 10:30:00 AM Not Available [facility] 0 17:33:14 Screening for malignant neoplasm of rectum Active 2010 Screening for malignant neoplasms of the rectum;Re corded Elsewhere : No Locati on: [facility] So urce: EHR Chron ic: N Practic e ID: 0001 Bill able Time: 01:30:00 PM Not Available [facility] 0 17:33:[address] Concept Active 2016 Encntr for general adult medical exam w/o abnormal findings; Recorded Elsewhere : No Locati on: [facility] So urce: EHR Chron ic: N Practic e ID: 0001 Bill able Time: 10:15:00 AM Not Available [facility] 0 17:33:14 Female genital organ symptoms 900916247 Active 2010 Unspecifi ed symptom associate d with female genital organs;Re corded Elsewhere : No Locati on: [facility] So urce: EHR Chron ic: N Practic e ID: 0001 Bill able Time: 01:30:00 PM Not Available [facility] 0 17:33:14 Screening for malignant neoplasm of cervix Active 2012 Screening for malignant neoplasms of the cervix;Re corded Elsewhere : No Locati on: [facility] So urce: EHR Chron ic: N Practic e ID: 0001 Bill able Time: 04:30:00 PM Not Available [facility] 0 17:33:14 Vitamin D deficienc y 48793181 Active 2012 Unspecifi ed vitamin d deficienc y;Recorde d Elsewhere : No Locati on: [facility] So urce: EHR Chron ic: N Practic e ID: 0001 Bill able Time: 03:45:00 PM Not Available [facility] 0 17:33:14 Postmenop ausal bleeding 89004358 Active 2012 Postmenop ausal bleeding; Recorded Elsewhere : No Locati on: [facility] So urce: EHR Chron ic: Y Practic e ID: 0001 Bill able Time: 04:15:00 PM Not Available [facility] 0 17:33:15 Osteoporo sis 21386083 Active 2011 Osteoporo sis;Recor ded Elsewhere : No Locati on: [facility] So urce: EHR Chron ic: N Practic e ID: 0001 Bill able Time: 04:30:00 PM Not Available [facility] 0 17:33:15 Abnormal cervical Papanicol aou smear 201320077 Active 2010 Other abnormal papanicol aou smear of cervix and cervical HPV;Recor ded Elsewhere : No Locati on: [facility] So urce: EHR Chron ic: N Practic e ID: 0001 Bill able Time: 01:30:00 PM Not Available [facility] 0 17:33:15 Urgent desire to urinate 33077010 Active 2012 URGENCY OF URINATION ;Recorded Elsewhere : No Locati on: [facility] So urce: EHR Chron ic: N Practic e ID: 0001 Bill able Time: 03:45:00 PM Not Available [facility] 0 17:33:[address] Concept Active 2016 Encounter for general adult medical exam w abnormal findings; Practice ID: [id number] Not Available [facility] 0 17:33:16 Problem Notes None recorded. Procedures Surgical History Date Name Laterality Status Provider Name and Address Organization Details Recorded Time 07/29/20 24 Date of Last Colonoscopy completed Susy Reed [facility] 09/24/2024 09:33:41 07/29/20 24 Colonoscopy completed Susy Reed [facility] 09/24/2024 09:33:20 07/29/20 24 endoscopy completed [facility] 09/24/2024 09:33:29 10/08/20 23 Date of Last Mammogram completed [facility] 09/24/2024 09:31:42 05/23/20 23 Date of Last Pap Smear completed [facility] 09/24/2024 09:31:12 11/18/19 14 Colonoscopy completed [facility] 09/09/2020 15:38:53 11/18/19 01 Breast Biopsy completed [facility] 09/09/2020 15:38:37 11/18/18 97 Breast Biopsy completed [facility] 09/09/2020 15:38:31 11/18/18 96 removal of ovarian cyst completed [facility] 09/09/2020 15:38:16 11/18/18 89 Colposcopy completed [facility] 09/09/2020 15:37:50 11/18/18 89 Dilation and Curettage completed [facility] 09/09/2020 15:38:01 Cholecystectomy completed [facility] 05/10/2022 09:45:00 Imaging Results Imaging Date Name Status LastModified by [facility] Details LastModified Time 10/03/2020 MAMMO, screening, bilateral completed [facility] [address], [place], [address], 04/13/2021 21:00:47 05/30/2021 DEXA completed [facility] [address], [place], [address], 06/01/2021 20:19:41 06/14/2022 MAMMO, screening, bilateral completed [email or web address] [facility] [address] [facility], [place], [address], 05/27/2023 15:59:40 09/21/2023 DEXA completed [email or web address] [facility] [address], [place], [address], 10/09/2023 14:59:28 10/08/2023 MAMMO, screening, bilateral completed [facility] [address] [place], [address], 10/07/2024 16:06:39 11/04/2024 MAMMO, screening, bilateral completed [facility] [address] [place], [address], 11/20/2024 11:58:04 11/04/2024 MAMMO, screening, bilateral completed [facility] [address] [place], [address], 11/20/2024 11:58:04 11/04/2024 MAMMO, screening, bilateral completed [facility] [address] , [place], [address], 12/10/2024 09:50:51 Procedure Notes None recorded. Medical Equipment None Reported. Allergies No known drug allergies Medications Name Sig Start Date Stop Date Status Note LastModified by Organization Details LastModified Time amoxicill in 500 mg capsule take 1 capsule (500MG) by oral route 3 times every day for 10 days 02/04 completed Prescrib ed Elsewher e: No [facility] By: cmedical Encount er DateTime : 01/27/20 13 09:05:11 AM Not Available Not Available Not Available ondansetr on HCl 4 mg tablet TAKE 1 TABLET BY MOUTH EVERY 8 HOURS NEEDED FOR NAUSEA OR VOMITING 09/24 completed Not Available Not Available Not Available omeprazol e 40 mg capsule,d elayed release TAKE 1 CAPSULE BY MOUTH EVERY DAY 05/23 completed Not Available Not Available Not Available alendrona te 35 mg tablet TAKE 1 TABLET BY MOUTH EVERY WEEK 09/24 completed Not Available Not Available Not Available omeprazol e 10 mg capsule,d elayed release take 2 capsule by oral route every day before a meal 05/23 completed Prescrib ed Elsewher e: Yes Loca tion: [facility] odify By: bertha ricci DateTime : 08/25/20 13 04:30:00 PM Not Available Not Available Not Available Multiple Vitamin tablet take 1 tablet by oral route every day with food 2011 active Prescrib ed Elsewher e: No Locat ion: [facility] odify By: lea alamo DateTime : 01/23/20 12 04:30:00 PM Not Available Not Available Not Available omeprazol e 20 mg capsule,d elayed release TAKE 2 CAPSULES BY MOUTH DAILY active Not Available Not Available No t Available ergocalci ferol (vitamin D2) 1,250 mcg (50,000 unit) capsule TAKE 1 CAPSULE BY MOUTH 1 TIME A WEEK FOR 8 WEEKS 09/24 completed Not Available Not Available Not Available colestipo l 1 gram tablet TAKE 1 TABLET BY MOUTH DAILY 09/24 completed Not Available Not Available Not Available tobramyci n 0.3 %-dexamet hasone 0.1 % eye drops,christine pension SHAKE LIQUID AND INSTILL 1 DROP IN RIGHT EYE FOUR TIMES DAILY FOR 7 DAYS 05/23 completed Not Available Not Available Not Available Calcium-5 00 500 mg (as calcium carbonate 1,250 mg) tablet take 1 tablet by oral route every day 2018 active Prescrib ed Elsewher e: Yes Loca tion: [facility] odify By: amkuhstacy Hennessy ncounter DateTime : 12/18/19 19 08:30:00 AM Not Available Not Available Not Available omeprazol e 09/24 completed Not Available Not Available Not Available Vitals Date Recorded Body height Body mass index (BMI) Body weight Systolic blood pressure Diastolic blood pressure Provider Name and Address Organization Details Last Updated DateTime 05/10/2022 160.02 cm 26.9 kg/m2 13086.04 g 165 mm[Hg] 81 mm[Hg] Lyssa Wang [facility] 2 09:43:33 Date Recorded Body height Body mass index (BMI) Body weight Systolic blood pressure Diastolic blood pressure Provider Name and Address Organization Details Last Updated DateTime 05/23/2023 160.02 cm 26.6 kg/m2 15425.86 g 148 mm[Hg] 81 mm[Hg] Lyssa Wang [facility] 3 09:34:01 Date Recorded Body height Body mass index (BMI) Body weight Systolic blood pressure Diastolic blood pressure Systolic blood pressure Diastolic blood pressure Provider Name and Address Organization Details Last Updated DateTime 3 160.02 cm 26.6 kg/m2 17052.8 6 g 169 mm[Hg] 76 mm[Hg] 161 mm[Hg] 79 mm[Hg] Lyssa Wang [facility] 3 11:24:19 Date Recorded Body height Body mass index (BMI) Body weight Systolic blood pressure Diastolic blood pressure Provider Name and Address Organization Details Last Updated DateTime 09/24/2024 160.02 cm 24.8 kg/m2 07231.93 g 166 mm[Hg] 80 mm[Hg] Susy Reed [facility] 4 09:29:53 Date Recorded Body height Body mass index (BMI) Body weight Systolic blood pressure Diastolic blood pressure Systolic blood pressure Diastolic blood pressure Provider Name and Address Organization Details Last Updated DateTime 0 160.02 cm 26.2 kg/m2 37780.6 7 g 150 mm[Hg] 76 mm[Hg] 130 mm[Hg] 70 mm[Hg] Lyssa Wang [facility] 0 09:28:06 Social History Question Answer Notes LastModified by Organizat ion Details LastModified Time Tobacco Smoking Status Never [facility]oker [facility] 09/10/2020 09:28:41 In The 14 Days Before Symptom Onset, Have You Had Close Contact With A Laboratory-confirm ed COVID-19 While That Case Was Ill? No Information n ot available 09/24/2024 In The 14 Days Before Symptom Onset, Have You Had Close Contact With A Person Who Is Under Investigation For COVID-19 While That Person Was Ill? No Information not available 09/24/2024 Have You Been To An Area Known To Be High Risk For COVID-19? No Information not available 09/24/2024 Sex: Unknown Functional Status None recorded. Mental Status None recorded. Family History Relationship Description Onset Age of this Age Resolved Age Notes LastModified by Organization Details LastModified Time Mother Hypertensive disorder [email or web address] Not available 2019 15:32:53 Mother Malignant tumor of pancreas [email or web address] Not available 2021 09:09:46 Father Malignant tumor of lung [email or web address] Not available 2019 15:33:27 Son Diabetes mellitus [email or web address] Not available 2019 15:36:54 Son Hypertensive disorder [email or web address] Not available 2019 15:36:59 Medical History Condition Response Other Y Endometriosis Y GI Problems Y Gynecological History Statement/Question Response Abnormal Pap Y Date of Last Mammogram 10/08/2023 STIs/STDs N HPV Vaccine N Current Control Method Tubal Ligat ion If Post Menopausal, Age at Menopause 54 Date of Last Colonoscopy 07/29/2024 Menses Monthly N Date of DEXA bone scan 09/21/2023 Date of Last Pap Smear 05/23/2023 Sexual Problems? N Obstetrics History GPAL:G 1 P 0 0 0 1 Type Value Living 1 Total 1 Past Encounters Encounter ID Performer Location Encounter Start Date Encounter Closed Date Diagnosis/Indication Diagnosis SNOMED-CT Code Diagnosis ICD10 Code Diagnosis Note [id number] Ridge Abdalla MD [facility] [address] [address] 09/10/2020 09:20:31 09/10/2020 13:39:48 Gynecologic examination [id number] Z01.419 This patient is here for her annual exam. A thorough history was taken. A physical exam was performed. Age appropriat e routine health screening was ordered, performed, and discussed. Recommende d testing was ordered. She was asked to follow up in one year. She will be informed of any test results. Mammogram - ordered Colonoscop y - to repeat Bone Density - ordered Cholestero l - ordered Pap - today Routine gy necologic examination done [id number] 9101 Z01.419 [id number] Ridge Abdalla MD [facility] [address],[place] [address] 05/10/2022 09:09:00 05/10/2022 10:17:02 Gynecologic examination 25467116 Z01.419 This patient is here for her annual exam. A thorough history was taken. A physical exam was performed. Age appropriat e routine health screening was ordered, performed, and discussed. Recommende d testing was ordered. She was asked to follow up in one year. She will be informed of any test results. Mammogram - ordered Colonoscop y - to repeat Bone Density - done Cholestero l - ordered Pap - today [id number] Ridge Abdalla MD [facility] [address],[place] [address] 05/23/2023 09:11:37 05/23/2023 10:08:04 Gynecologic examination 53247073 Z01.419 This patient is here for her annual exam. A thorough history was taken. A physical exam was performed. Age appropriat e routine health screening was ordered, performed, and discussed. Recommende d testing was ordered. She was asked to follow up in one year. She will be informed of any test results. Mammogram - ordered Colonoscop y - to repeat Bone Density - ordered Cholestero l - ordered Pap - today [id number] Ridge Abdalla MD [facility] [address],[facility] [place] [address] 11/04/2023 11:15:17 11/04/2023 12:10:10 Osteopenia [id number] M85.80 68-year-ol d female with osteopenia . Osteopenia less threshold recommende d for medical treatment we talked about medication s. She has some reservatio ns about the medication s for osteoporos is. We talked about the 1st line of treatment. Patient would like to know more about her treatment options. I discussed a endocrinol ogy referral. She would like to See endocrinol ogy. We also talked about medication s and starting risedronat e. We agreed started risedronat e. She may talk to her primary care doctor about this problem as well. We spent 20 minutes face-to-fa ce. More than 50% was counseling . [id number] Ridge Abdalla MD [facility] [address] [address] 09/24/2024 09:18:01 09/24/2024 10:04:40 Gynecologic examination [id number] Z01.419 This patient is here for her annual exam. A thorough history was taken. A physical exam was performed. Age appropriat e routine health screening was ordered, performed, and discussed. Recommende d testing was ordered. She was asked to follow up in one year. She will be informed of any test results. Mammogram - ordered Colonoscop y - done Bone Density - done Cholestero l - done Pap - today Health Concerns Section Related Observation LastModified by Organization Detai ls LastModified Time None Recorded Concern Status LastModified by Organization Details LastModified Time None Recorded Advance Directives Directive None Recorded Payers Encounter Date Sequence Insurance Name Policy Number Policy Cook Covered Member ID Cook Member ID Guarantor Name 09/10/2020 1 [facility] [id number] Kristin Y Prosper [id number] 1 Kristin Y Prosper 05/10/2022 1 [facility] [id number] Kristin Y Prosper [id number] Kristin Y Prosper 05/23/2023 1 [facility] [id number] Kristin Y Prosper [id number] Kristin Y Prosper 11/04/2023 1 [facility] [id number] Kristin Y Prosper [id number] 1 Kristin Y Prosper 09/24/2024 1 [facility] [id number] Kristin Y Prosper [id number] 1 Kristin Y Prosper Notes Date Note Type Note Provider Name and Address Organization Details Recorded Time 09/10/2020 text/html Annual GYNReport ed bypatient.History:n o gynecologic complaints Urinary symptoms:No hematuria; No incontinence Vulva:No genital lesion Vagina:Normal vaginal discharge Breast:No breast pain; No breast lump; No nipple discharge Sexual complaints:No sexual complaints; No pain during intercourse; Normal libido Menopausal Symptoms:No menopausal symptoms Psychological symptoms:No depression; No anxiety Preventive measures:Encourage self breast examination; Encourage regular exercise Ridge Abdalla MD [address], [place], [address], [facility] 09/10/2020 09:45:30 05/10/2022 text/html Annual GYNReport ed bypatient.History:n o gynecologic complaints Urinary symptoms:No hematuria; No incontinence Vulva:No genital lesion Vagina:Normal vaginal discharge Breast:No breast pain; No breast lump Sexual complaints:No sexual complaints Menopausal Symptoms:No menopausal symptoms Psychological symptoms:No depression; No anxiety Preventive measures:Encourage self breast examination; Encourage regular exercise Ridge Abdalla MD [address], [place], [address], [facility] 05/10/2022 10:16:51 05/23/2023 text/html Annual GYNReport ed bypatient.History:n o gynecologic complaints Urinary symptoms:No hematuria; No incontinence Vulva:No genital lesion Vagina:Normal vaginal discharge Breast:No breast pain; No breast lump Sexual complaints:No sexual complaints; No pain during intercourse Menopausal Symptoms:No menopausal symptoms; Normal vaginal lubrication Psychological symptoms:No depression; No anxiety Preventive measures:Encourage self breast examination; Encourage regular exercise Ridge Abdalla MD [address], [place], [address], [facility] 05/23/2023 10:04:10 11/04/2023 text/html 68-year-old fema le with osteopenia. Osteopenia less threshold recommended for medical treatment we talked about medications. She has some reservations about the medications for osteoporosis. We talked about the 1st line of treatment. Patient would like to know more about her treatment options. I discussed a endocrinology referral. She would like to See endocrinology. We also talked about medications and starting risedronate. We agreed started risedronate. She may talk to her primary care doctor about this problem as well. We spent 20 minutes [id number]. More than 50% was counseling. Ridge Abdalla MD [address], [place], [address], [facility] 11/04/2023 12:04:29 09/24/2024 text/html Annual GYNReport ed bypatient.History:n o gynecologic complaints Urinary symptoms:No hematuria; No incontinence Vulva:No genital lesion Vagina:Normal vaginal discharge Breast:No breast pain; No breast lump Sexual complaints:No sexual complaints Menopausal Symptoms:No menopausal symptoms; Normal vaginal lubrication Psychological symptoms:No depression; No anxiety Preventive measures:Encourage self breast examination; Encourage regular exercise Ridge Abdalla MD [address], [place], [address], [facility] 09/24/2024 10:04:04 OBGyn Episode Ob Episode Information Episode Created Date Number of Fetuses Patient Bloodtype Patient rh Status Prepregnancy Weight lbs Domestic Partner Domestic Partner Phone Father Name Poultry Husbandman Status 09/09/20 20 1 CLOSED Fetus Data First Name Last Name Admitted to NICU Weight (g) Sex Living Outcome Pediatric Complications Fetus ID Race Codes Race Delivery Type M [id number] Vaginal Delivery Kody Calculation Initial Kody Date Initial Exam Date Initial Exam Provider Initial Ultrasound Date Last Menstrual Period Date Ultra Sound Weeks Gestation 0 Eighteen To Twenty Week Kody Update Ultra Sound Date Fundal Height At Umbil Quickening Date Ultra Sound Latest Weeks Gestation Final Kody Confirmed By Final Kody Confirmed Date Final Kody Date Ultra Sound Latest Days Gestation 0 0 Menstrual History Last Menstrual Date Menses Monthly On Bcp Conception Prior Menses Frequency Hcg Plus Date Menarche Onset Age Delivery Information Delivery Date Delivery Type Labor Anesthesia Weeks Gestation Incision Type Labor Labor Length Hrs Delivered By Post Complications Tubal Sterilization Discharge Date Comments 0 Daniel Discharge Information Feeding Method Contraceptive Method Maternal HG B and HCT Levels
--- OUTSIDE RECORDS SUMMARY | 2024-12-23 08:00 | XMS_ITS | Clinical Summary ---
Author Organization [facility] Address [address] [place] [address] Care Team Providers Care Land Surveyor Assistant Name Role Phone Ridge Abdalla MD Primary Care Provider [phone] Encounters Date Type Department Care Team Description 12/09/2024 External Device Data [facility] ABSTRACTION Provider, Abstract 12/08/2024 External Device Data [facility]STRACTION Provider, Abstract 12/02/2024 External Device Data [facility]STRACTION Provider, Abstract 11/04/2024 9:00 AM MORTICIAN HELPER Ancillary Procedure [facility] [address] [place] [address] Ridge Abdalla MD Encounter for screening mammogram for malignant neoplasm of breast from Last 3 Months Social History Tobacco Use Types Packs/Day Years Used Date Smoking Tobacco: Never Assessed Comments Unknown Sex and Gender Information Value Date Recorded Sex Assigned at Not on file Legal Sex Female 7:13 PM MORTICIAN HELPER Gender Identity Not on file Sexual Orientation Not on file Plan of Treatment Health Maintenance Due Date Last Done Comments DTAP/TDAP/TD VACCINES (1 - Tdap) 1974 FIT-DNA Q 3 years 2000 FIT/FOBT Q 1 year 2000 Flex Sig/CT Colonography Q 5 years 2000 PNEUMOCOCCAL VACCINE 65+ YEA RS (1 of 1 - PCV) 2005 ZOSTER VACCINE (1 of 2) 2005 OSTEOPOROSIS SCREENING 2020 INFLUENZA VACCINE (#1) 2024 BREAST CANCER SCREENING 11/04/2025 11/04/2024, 10/02 RSV VACCINE (60+ or ) (1 - 1-dose 75+ series) 2030 COLORECTAL SCREENING 07/29/2034 07/29/2024, 11/17/20 13 Colorectal Cancer Screening 07/29/2034 Procedures Procedure Name Priority Date/Time Associated Diagnosis Comments MAMMO 3D STEVENSON SCREEN BILAT W OR WO CAD Routine 11/04/2024 9:01 AM MORTICIAN HELPER Encounter for screening mammogram for malignant neoplasm of breast from Last 3 Months Results * MAMMO 3D STEVENSON SCREEN BILAT W OR WO CAD (11/04/2024 9:01 AM MORTICIAN HELPER) Anatomical Region Laterality Modality Breast Bilateral Mammography 11/04/2024 9:04 AM MORTICIAN HELPER Narrative 11/04/2024 9:11 AM MORTICIAN HELPER EXAM: MAMMO 3D STEVENSON SCREEN BILAT W OR WO CAD DATE: 11/04/2024 HISTORY: Encounter for screening mammogram for malignant neoplasm of breast. Prior left breast biopsy. COMPARISON: ??10/02/2023 DENSITY: Heterogeneously dense which could obscure small masses. FINDINGS: Bilateral screening mammograms with tomosynthesis were performed with standard CC and MLO views obtained. Computer assisted detection was utilized. Little significant change is noted. The parenchymal pattern is essentially unchanged. Architectural distortion in the deep central left breast is again noted and is consistent with the reported history of prior benign left breast biopsy. There are benign appearing calcifications noted bilaterally including vascular calcifications. A small nodular mass in the right lower subareolar breast is stable. No new dominant mass, architectural distortion, nipple retraction, skin thickening, or suspicious calcifications are seen. ? ASSESSMENT: BIRADS Category 2: Benign finding(s). Digital technology was employed plus computer-aided detection software was utilized in interpretation of these images. ?? us Ridge Abdalla MD MAMMO ORDERABLES Final Res ult from Last 3 Months Insurance [facility] OPEN ACCESS HMO Care Teams Land Surveyor Assistant Relationship Specialty Start Date End Date Ridge Abdalla MD [address] [id number] PCP - General Obstetrics and Gynecology 10/02/23
--- OUTSIDE RECORDS SUMMARY | 2024-12-23 08:00 | XMS_ITS | Referral Summary ---
Author Organization [facility] Address [address] [place] [phone] Care Team Providers Care Welder Fitter Gas Name Role Phone Jose Angel Atkinson MD Primary Care Prov ider Allergies No known active allergies Active Problems Problem Noted Date Diagnosed Date Vitamin D deficiency disease 10/15/2017 Osteopenia 09/19/2017 Social History Tobacco Use Types Packs/Day Years Used Date Smoking Tobacco: Never Assessed Comments Unknown Sex and Gender Information Value Date Recorded Sex Assigned at Not on file Legal Sex Female 1:46 AM WHITESMITH Gender Identity Not on file Sexual Orientation Not on file Last Filed Vital Signs Vital Sign Reading Time Taken Comments Blood Pressure 158/80 09/19/2017 8:25 AM CDT Pulse 65 09/19/2017 8:25 AM CDT Temperature - - Respiratory Rate - - Oxygen Saturation 98% 09/19/2017 8:25 AM CDT Inhaled Oxygen Concentration - - Weight 67.6 kg (149 lb 0.1 oz) 09/19/2017 8:25 A M CDT Height 163.8 cm (5' 4.5 ) 09/19/2017 8:25 AM CDT Body Mass Index 25.18 09/19/2017 8:25 AM CDT Plan of Treatment [place] [id number] [employer] OPEN ACCESS Care Teams Welder Fitter Gas Relationship Specialty Start Date End Date Jose Angel Atkinson MD [address] [place] [address] PCP - General 09/19/17
--- OUTSIDE RECORDS SUMMARY | 2024-12-23 08:00 | XMS_ITS | Clinical Summary ---
Author Organization [facility] Address [address] [place] [id number] Care Team Providers Care Glove Parts Cutter Name Role Phone Jose Angel Atkinson MD Primary Care Prov ider Allergies No known active allergies Active Problems Problem Noted Date Diagnosed Date Vitamin D deficiency disease 10/15/2017 Osteopenia 09/19/2017 Social History Tobacco Use Types Packs/Day Years Used Date Smoking Tobacco: Never Assessed Comments Unknown Sex and Gender Information Value Date Recorded Sex Assigned at Not on file Legal Sex Female 1:46 AM METHOD CONSULTANT Gender Identity Not on file Sexual Orientation Not on file Obstetrics History Last Filed Vital Signs Vital Sign Reading [...] Treatment [place] [id number] [employer] OPEN ACCESS Care Teams Glove Parts Cutter Relationship Specialty Start Date End Date Jose Angel Atkinson MD [address] [place] [address] PCP - General 09/19/17
[2024-12-23 09:09] LABS: Cholesterol 184 mg/dL (0-200); HDL Direct 55 mg/dL; Triglycerides 80 mg/dL (<150)
[2024-12-23 09:20] LABS: LDL Cholesterol Direct 108 mg/dL
[2024-12-23 10:19] LABS: Hemoglobin A1C 5.5 % (<5.7)
[2024-12-30 17:33] LABS: ALT 16 U/L (6-29); Alpha-2-Macroglobulin 145 mg/dL (106-279); Apolipoprotein A1 181 mg/dL (101-198); Fibrosis Score 0.13; Fibrosis Stage F0; GGT 17 U/L (3-65); Haptoglobin 126 mg/dL (43-212); Necroinflammat Act Grade A0; Reference ID 5331469; Total Bilirubin 0.8 mg/dL (0.2-1.2)
== END 2024-12-23 07:57 | disposition home or self-care (01) ==
PROVIDERS: PCP Family Medicine Adolescent Medicine; Visit Provider Nurse Practitioner
DX: K76.0 Fatty (change of) liver, not elsewhere classified (principal)
CPT/HCPCS: 36415; 80061; 81596; 83036

== ENCOUNTER 2024-12-23 16:06 | Emergency (ER) | payer MEDICARE, OTHER, SELFPAY ==
--- NOTE | ~2024-12-23 | XR_ITS ---
HISTORY: injury COMPARISON: None TECHNIQUE: 3 views of the right foot were performed FINDINGS: Acute fracture of the distal midshaft of the fifth metatarsal is identified. No significant degenerative disease is noted. The base of the fifth metatarsal is intact. A small calcaneal spur is noted. No significant soft tissue swelling is present. IMPRESSION: Acute/subacute fracture of the distal midshaft of the fifth metatarsal, as detailed nate baker. Reviewed, dictated and finalized at location A. F POWER DISPATCHER IMPRESSION: Acute/subacute fracture of the distal midshaft of the fifth metata rsal, as detailed above.
--- NOTE | 2024-12-23 16:19 | ED.LOWEXIN ---
HPI - Extremity Injury (Lower) General Chief Complaint: Extremity Injury, Lower Stated Complaint: Right Foot Pain Time Seen by Provider: 12/23/24 16:48 Source: patient and RN notes reviewed Mode of arrival: ambulatory Limitations: no limitations History of Present Illness HPI Narrative: 69 year old female presents with concern for right foot pain. Reports she was sitting today and her foot fell asleep when she stood up she did realize her foot was asleep and her foot rolled. She reports pain the lateral foot. She reports it hurts with weight-bearing. She took Tylenol. She denies decreased strength, sensation, range of motion MD complaint: foot injury Related Data Home Medications ?Medication ?Instructions ?Recorded ?Confirmed ?Last Taken ?Type alendronate 35 mg tablet 35 mg PO WEEKLY 04/07/24 12/02/24 Unknown History calcium carbonate (Calcium 500) 500 mg PO DAILY 04/07/24 12/02/24 Unknown History cholecalciferol (vitamin D3) 10 10 mcg PO DAILY 04/07/24 12/02/24 Unknown History mcg (400 unit) capsule (Vitamin D3) magnesium 250 mg tablet 250 mg PO DAILY 04/07/24 12/02/24 Unknown History multivitamin 1 tablet PO .TIW 04/07/24 12/02/24 Unknown History Allergies Allergy/AdvReac Type Severity Reaction Status Date / Time No Known Allergies Allergy Mild Verified 12/23/24 16:17 Review of Systems Review of Systems: CONSTITUTIONAL: Denies malaise, chills, sweats, or fever. SKIN: Denies rash or itching, open skin, laceration, abrasion, redness, warmth, swelling. MUSCULOSKELETAL: Reports right foot pain NEUROLOGIC: Denies numbness, weakness All systems reviewed & are unremarkable except as noted in HPI and below PMFSH Past Medical History Medical History Osteopenia Irritable bowel syndrome Gastroesophageal reflux disease Family History Family History Mother Family history of pancreatic cancer Heart problem Father Family history of lung cancer Alcoholism Other Diabetes mellitus Hypertension Heart problem Grandparent Breast cancer Grandparent Cerebrovascular accident Social History Social History Smoking status: Never smoker Alcohol intake: never Alcohol use details: States she drinks wine very seldom Substance use: never Substance use type: does not use Living arrangements: alone Spiritual care concerns: No Comments At time of signature, agree with nursing past medical, surgical, social and family history. There is no relevant family history pertinent to the presenting complaint Exam Narrative: GENERAL: Well-appearing, well-nourished, and in no acute distress. HEAD: Normocephalic, atraumatic. EYES: PERRLA, conjunctivae clear NECK: Supple. CHEST: Speaks in full sentences. No respiratory distress. HEART: Regular rate and rhythm. Normal and equal peripheral pulses. EXTREMITIES: Right foot, digits have grossly normal strength and sensation, grossly normal range of motion. No edema or ecchymosis. 5/5 strength with digit flexion and extension. Normal sensation with sensitivity to light touch and pain. Lateral tenderness. No open wounds, no skin tenting, no devitalized tissue or atrophy, no trophic changes, no obvious deformity, alignment normal, nearby joints and structures intact. Distal pulses palpable and equal bilaterally, skin warm, dry, pink. Capillary refill less than 3 seconds. SKIN: Warm, dry, no rash. NEURO: Alert and oriented x3. PSYCH: Normal mood and affect Course Course Emergency Course: Patient is aware of diagnosis, understands and agrees to treatment plan. Anticipatory guidance given. Patient agrees to follow-up as directed and is aware of reasons to seek care at the emergency department. Portions of this record may have been created with voice recognition software Level of Care: Express Care Visit Vital Signs Vital signs: Reviewed. MDM - Extremity Injury (Lower) [facility] Narrative Medical decision making narrative: Patients injury and pain is consistent with musculoskeletal etiology. No signs of neurological or vascular compromise on exam. Compartments and tissues are soft without signs of compartment syndrome. Pain is felt appropriate for further evaluation on an outpatient basis. Imaging Data My impression: Images reviewed, interpreted by radiologist, agree, see report. Radiologist's impression: HISTORY: injury COMPARISON: None TECHNIQUE: 3 views of the right foot were performed FINDINGS: Acute fracture of the distal midshaft of the fifth metatarsal is identified. No significant degenerative disease is noted. The base of the fifth metatarsal is intact. A small calcaneal spur is noted. No significant soft tissue swelling is present. IMPRESSION: Acute/subacute fracture of the distal midshaft of the fifth metatarsal, as detailed above. Critical Care Time Critical Care Time Critical Care Time: No Discharge Plan Discharge Clinical Impression: Metatarsal fracture Patient Disposition: Home, Self-Care Condition: Stable Instructions: Foot Fracture in Adults (ED) Additional Instructions: Please rest, ice and elevate the affected extremity. Please take Motrin 600mg every 8 hours, as needed, for pain (take with food). Follow up with Orthopedic Surgery in 1-2 days for further evaluation - please call for an appointment. Keep orthopedic shoe on while walking. Please cone picker walking boot and use it instead of the shoe. Please go to ER immediately for increased pain, tingling/numbness, swelling, redness, and fever Patient Language: Prydeinig Prescriptions: New (DME) Walking boot See Rx Instructions .Route .MEDSUPPLY Qty: 1 0RF Rx Instructions: As directed No Action alendronate 35 mg tablet 35 mg PO WEEKLY calcium carbonate [Calcium 500] 500 mg calcium (1,250 mg) tablet,chewable 500 mg PO DAILY cholecalciferol (vitamin D3) [Vitamin D3] 10 mcg (400 unit) capsule 10 mcg PO DAILY multivitamin Tablet 1 tablet PO .TIW magnesium 250 mg tablet 250 mg PO DAILY ondansetron HCl 4 mg tablet 4 mg PO Q8H PRN (Reason: nausea and vomiting) Qty: 10 0RF omeprazole 20 mg capsule,delayed release(DR/EC) 40 mg PO DAILY Qty: 90 3RF colestipol 1 gram tablet 1 g PO DAILY Qty: 30 11RF Follow-up/Referrals: Jose Angel Atkinson MD [Primary Care Provider] - Time of Disposition: 16:57
[2024-12-23 16:20] VITALS: BP 166/74; PULSE 70; RESP 16; TEMP 36.2; O2SAT 100
== END 2024-12-23 17:05 | disposition home or self-care (01) ==
PROVIDERS: Emergency Provider Nurse Practitioner; PCP Family Medicine Adolescent Medicine
DX: S92.351A Displaced fracture of fifth metatarsal bone, right foot, initial encounter for closed fracture (principal); X50.9XXA Other and unspecified overexertion or strenuous movements or postures, initial encounter; M85.80 Other specified disorders of bone density and structure, unspecified site; K21.9 Gastro-esophageal reflux disease without esophagitis
CPT/HCPCS: 73630; 99214; G0463

== ENCOUNTER 2024-12-29 17:32 | Emergency (ER) | payer MEDICARE, OTHER, SELFPAY ==
[2024-12-29 17:43] VITALS: BP 147/82; PULSE 86; RESP 16; TEMP 36.7; O2SAT 98
--- NOTE | 2024-12-29 17:57 | ED.URI ---
HPI - URI/Sore Throat General Chief Complaint: Upper Respiratory Infection Stated Complaint: Cough Time Seen by Provider: 12/29/24 17:50 Source: patient Mode of arrival: ambulatory Limitations: no limitations History of Present Illness HPI Narrative: Pineda is a 69-year-old female patient presenting to the clinic today with complaints of runny nose, nonproductive cough, having coughing fits, and sinus drainage x4 days. She reports she has taken for at home COVID test and all were negative. She denies any fevers, chills, body aches, chest pain, or shortness breath. MD elicited complaint: cough and nasal congestion Related Data Home Medications ?Medication ?Instructions ?Recorded ?Confirmed ?Last Taken ?Type alendronate 35 mg tablet 35 mg PO WEEKLY 04/07/24 12/24/24 Unknown History calcium carbonate (Calcium 500) 500 mg PO DAILY 04/07/24 12/24/24 Unknown History cholecalciferol (vitamin D3) 10 10 mcg PO DAILY 04/07/24 12/24/24 Unknown History mcg (400 unit) capsule (Vitamin D3) magnesium 250 mg tablet 250 mg PO DAILY 04/07/24 12/24/24 Unknown History multivitamin 1 tablet PO .TIW 04/07/24 12/24/24 Unknown History Allergies Allergy/AdvReac Type Severity Reaction Status Date / Time No Known Allergies Allergy Mild Verified 12/29/24 17:52 Review of Systems Review of Systems: Pertinent positives per HPI. Patient denies any fever, chills, rash, headache, visual changes, dizziness, shortness of breath, chest pain, palpitations, nausea, vomiting, diarrhea, constipation, abdominal pain, or any urinary issues. [facility] Past Medical History Medical History Osteopenia Irritable bowel syndrome Gastroesophageal reflux disease Family History Family History Mother Family history of pancreatic cancer Heart problem Father Family history of lung cancer Alcoholism Other Diabetes mellitus Hypertension Heart problem Grandparent Breast cancer Grandparent Cerebrovascular accident Social History Social History Smoking status: Never smoker Alcohol intake: never Alcohol use details: States she drinks wine very seldom Substance use: never Substance use type: does not use Living arrangements: alone Spiritual care concerns: No Comments At the time of my signature, I reviewed and agree with the nursing past medical, surgical, social, and family history. There is no relevant family history pertinent to the patient complaint. Exam Narrative: General: Well-developed, well nourished, in no apparent distress Head: Normocephalic, atraumatic Eyes: Pupils equally round and reactive to light bilaterally, EOM intact, sclera and conjunctive clear, no discharge, lids normal Ears: TMs intact and congested, ear canals clear, no drainage, grossly hearing normal. Nose: Nares patent, clear nasal discharge, no inflammation, no sinus tenderness. Mouth: Oral pharynx without lesions or masses, good dentition, MMM. Postnasal drip Neck: Supple, trachea midline, no enlargement of anterior or posterior cervical nodes, no thyroid masses or goiter palpable. Cardio: Regular rate and rhythm, s1 and s2 normal, no murmur appreciated. Resp: Clear to auscultation bilaterally, no rhonchi, rales, wheezing or rubs Course Course Emergency Course: Portions of this record may have been created with voice recognition software. Level of Care: Express Care Visit Vital Signs Vital signs: Vital Signs Temperature 36.7 C 12/29/24 17:43 Pulse Rate 86 12/29/24 17:43 Respiratory Rate 16 12/29/24 17:43 Blood Pressure 147/82 H 12/29/24 17:43 Pulse Oximetry 98 12/29/24 17:43 Oxygen Delivery Room Air 12/29/24 17:43 Temperature 36.7 C 12/29/24 17:43 Pulse Rate 86 12/29/24 17:43 Respiratory Rate 16 12/29/24 17:43 Blood Pressure 147/82 H 12/29/24 17:43 Pulse Oximetry 98 12/29/24 17:43 Oxygen Delivery Room Air 12/29/24 17:43 Vital signs reviewed MDM - URI/Sore Throat MDM Narrative Medical decision making narrative: At the time of visit patient is resting comfortably on the exam table. Patient appears to be nontoxic. Plan: I suspect patient has URI with cough and congestion. Prescription for prednisone and albuterol inhaler was sent to the pharmacy. Supportive measures were discussed with the patient and they voiced understanding discharge instructions and agrees to treatment plan. Return precautions reviewed Differential Diagnosis Differential diagnosis: Likely upper respiratory infection, otitis media, sinusitis, viral infection, bronchitis, influenza, pharyngitis and other (COVID) Discharge Plan Discharge Clinical Impression: Upper respiratory infection Patient Disposition: Home, Self-Care Condition: Stable Instructions: Antibiotic Form, Cold Symptoms (ED) Additional Instructions: Take prescription medications only as prescribed-albuterol inhaler and prednisone Increase fluids and stay well hydrated Tylenol/motrin for pain/fever Flonase and OTC antihistamines as directed Vicks vapor rub to open sinuses Sinus rinses for congestion Cepacol spray, cough drops, throat lozenges, warm tea with honey/lemon, gargle salt water to soothe throat BRAT diet for diarrhea Clear liquids x 24 hours then advance as tolerated for nausea/vomiting Go to the ED if you develop a worsening in your condition- high fever not controlled by Tylenol or Motrin, dehydration, weakness, lethargy, shortness of breath, or chest pain. Follow up with your PCP in 3-5 days if symptoms persist. Patient Language: Vietnamese Prescriptions: New prednisone 20 mg tablet 40 mg PO DAILY 5 Days Qty: 10 0RF albuterol sulfate 90 mcg/actuation HFA aerosol inhaler 2 puff inhalation Q4-6H PRN (Reason: shortness of breath or wheezing) 30 Days Qty: 8.5 0RF No Action alendronate 35 mg tablet 35 mg PO WEEKLY calcium carbonate [Calcium 500] 500 mg calcium (1,250 mg) tablet,chewable 500 mg PO DAILY cholecalciferol (vitamin D3) [Vitamin D3] 10 mcg (400 unit) capsule 10 mcg PO DAILY multivitamin Tablet 1 tablet PO .TIW magnesium 250 mg tablet 250 mg PO DAILY ondansetron HCl 4 mg tablet 4 mg PO Q8H PRN (Reason: nausea and vomiting) Qty: 10 0RF omeprazole 20 mg capsule,delayed release(DR/EC) 40 mg PO DAILY Qty: 90 3RF colestipol 1 gram tablet 1 g PO DAILY Qty: 30 11RF Follow-up/Referrals: Jose Angel Atkinson MD [Primary Care Provider] - Time of Disposition: 17:58 Quality NIHSS Nursing Documentation ED NIHSS nursing documentation: reviewed/agree
== END 2024-12-29 18:00 | disposition home or self-care (01) ==
PROVIDERS: Emergency Provider Nurse Practitioner Family; PCP Family Medicine Adolescent Medicine
DX: J06.9 Acute upper respiratory infection, unspecified (principal)
CPT/HCPCS: 99213; G0463

== ENCOUNTER 2025-03-26 07:05 | Outpatient (CLI) | payer OTHER, MEDICARE, SELFPAY ==
--- OUTSIDE RECORDS SUMMARY | 2025-03-26 07:12 | XMS_ITS | Referral Summary ---
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
--- OUTSIDE RECORDS SUMMARY | 2025-03-26 07:12 | XMS_ITS | Clinical Summary ---
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
--- OUTSIDE RECORDS SUMMARY | 2025-03-26 07:14 | XMS_ITS | Data Portability ---
Author Organization [facility] [place] Address [address] [place] [address] Assessment Encounter Date Assessment Date Assessment LastModified [...] 25-hydroxy, total, serum 2019 020 [email or web address] [facility] ([facility]), [address] [facility] [address] , [address], [place], [address], 09:44:06 CBC 2019 020 [email or web address] [facility] ([facility]), [address] [facility] , [address], [place], [address], 1 12:35:48 TSH, serum or plasma 2019 020 [email or web address] [facility] ([facility]), [address] [place] [address] [address], [place], [address], 1 12:35:48 CMP, serum or plasma 2019 020 [email or web address] [facility]), [address] [place] [address] [address], [place], [address], 1 12:35:48 lipid panel, serum 2019 020 [email or web address] [facility]), [address] [place] [address] [address], [place], [address], 1 12:35:48 urinalysis, dipstick 2019 020 [email or web address] [place], [facility] [address], [address], [place], [address], 0 22:10:23 Referral None recorded. Procedures None recorded. Surgeries None recorded. Imaging None recorded. Medication Orders alendronate 35 mg tablet 2022 024 [id number], [address] [facility] [facility], [place], [place], [id number], 4 09:30:46 Patient TargetsNo targets recorded. Patient InstructionsNo instructions recorded. Reason for Referral None Reported. Results Created Date Observation Date Name Description Value Unit Range Abnormal Flag Note LastModifiedBy Organization Detail LastModifiedTime 09/10/2009/14/2020 cultu re, urine specimen source Urine - Void Not Available [facility]) [address] [place] [address] [address], [place], [address], 09/14/2020 04:45:50 09/10/20 20 09/14/2020 cultu re, urine culture, urine See Below No growt h Not Available [facility] ([facility]) [address], [place], [address], 09/14/2020 04:45:50 09/10/20 20 09/14/2020 pap, LB [...] Techn 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 Case revie wed and diagn osis rende red at [facility], [facility] Path [facility], [address] [place] [address] Emil Ribeiro MD, Labor atory Direc tor. CONFI DENTI AL Not Available [facility] ([facility]) [address], [place], [address], 09/14/2020 10:56:54 09/10/2009/10/2020 urina lysis , dipst ick Leukocytes TRACE Not Available [facility] [address], [place], [address], 09/10/2020 09:38:36 09/10/20 20 09/10/2020 urina lysis , dipst ick Blood +++ Not Available [place] [address], [place], [address], 09/10/2020 09:38:36 05/10/20 21 05/10/2021 CBC w/ auto diff WBC 6.3 10'3/ uL 3.6-10 .2 Not Available [facility] (Lab) [address], [place], [address], 05/11/2021 04:09:05 05/10/20 21 05/10/2021 CBC w/ auto diff RBC 4.50 10'6/ uL (based on docume nted legal sex) 4.10-5 .30 Not Available [facility] (Lab) [address], [place], [address], 05/11/2021 04:09:05 05/10/20 21 05/10/2021 CBC w/ auto diff HGB 13.3 g/dL (based on docume nted legal sex) 11.9-1 5.8 Not Available [facility] (Lab) [address], [place], [address], 05/11/2021 04:09:05 05/10/20 21 05/10/2021 CBC w/ auto diff HCT 41.3 % (based on docume nted legal sex) 37.4-4 8.3 Not Available [facility] (Lab) [address] [place], [address], 05/11/2021 04:09:05 05/10/20 21 05/10/2021 CBC w/ auto diff MCV 93.0 fL 82.0-9 9.0 Not Available [facility] (Lab) [address], [place], [address], 05/11/2021 04:09:05 05/10/20 21 05/10/2021 CBC w/ auto diff MCH 30.0 pg 27.0-3 3.0 Not Available [facility] (Lab) [address] [facility], [place], [address], 05/11/2021 04:09:05 05/10/20 21 05/10/2021 CBC w/ auto diff MCHC 32.0 g/dL 32.0-3 6.0 Not Available [facility] (Lab) [address], [place], [address], 05/11/2021 04:09:05 05/10/20 21 05/10/2021 CBC w/ auto diff RDW 13.0 % 11.0-1 5.0 Not Available [facility] (Lab) [address], [place], [address], 05/11/2021 04:09:05 05/10/20 21 05/10/2021 CBC w/ auto diff plt 464 10'3/ uL 150-45 0 high Not Available [facility] (Lab) [address] [facility], [place], [address], 05/11/2021 04:09:05 05/10/20 21 05/10/2021 CBC w/ auto diff MPV 9.7 fL Not Available [facility] (Lab) [address] [facility], [place], [address], 05/11/2021 04:09:05 05/10/20 21 05/10/2021 CBC w/ auto diff NRBC's 0.00 % 0 Not Available [facility] (Lab) [address] [place], [address], 05/11/2021 04:09:05 05/10/20 21 05/10/2021 CBC w/ auto diff absolute NRBCs 0.0 10'3/ uL 0 Not Available [facility] (Lab) [address] [place], [address], 05/11/2021 04:09:05 05/10/20 21 05/10/2021 CBC w/ auto diff neutrophils 54.0 % 37.0-7 2.0 Not Available [facility] (Lab) [address] [place], [address], 05/11/2021 04:09:05 05/10/20 21 05/10/2021 CBC w/ auto diff lymphocytes 35.0 % 16.0-4 8.0 Not Available [facility] (Lab) [address] [place], [address], 05/11/2021 04:09:05 05/10/20 21 05/10/2021 CBC w/ auto diff monocytes 9.0 % 4.0-14 .0 Not Available [facility] (Lab) [address] [place], [address], 05/11/2021 04:09:05 05/10/20 21 05/10/2021 CBC w/ auto diff eosinophils 1.0 % 0.0-9. 0 Not Available [facility] (Lab) [address] [facility], [place], [address], 05/11/2021 04:09:05 05/10/20 21 05/10/2021 CBC w/ auto diff basophils 1.0 % 0.0-2. 0 Not Available [facility] (Lab) [address] [place], [address], 05/11/2021 04:09:05 05/10/20 21 05/10/2021 CBC w/ auto diff immature granulocytes 0.0 % no define d refere nce range Not Available [facility] (Lab) [address] [place], [address], 05/11/2021 04:09:05 05/10/20 21 05/10/2021 CBC w/ auto diff absolute neutrophils 3.5 10'3/ uL 1.1-6. 0 Not Available [facility] (Lab) [address] [place], [address], 05/11/2021 04:09:05 05/10/20 21 05/10/2021 CBC w/ auto diff absolute lymphocytes 2.2 10'3/ uL 0.7-3. 4 Not Available [facility] (Lab) [address] [facility], [place], [address], 05/11/2021 04:09:05 05/10/20 21 05/10/2021 CBC w/ auto diff absolute monocytes 0.5 10'3/ uL 0.3-1. 0 Not Available [facility] (Lab) [address] [facility], [place], [address], 05/11/2021 04:09:05 05/10/20 21 05/10/2021 CBC w/ auto diff absolute eosinophils 0.1 10'3/ uL 0.0-0. 6 Not Available [facility] (Lab) [address] [place], [address], 05/11/2021 04:09:05 05/10/20 21 05/10/2021 CBC w/ auto diff absolute basophils 0.1 10'3/ uL 0.0-0. 1 Not Available [facility] (Lab) [address] [place], [address], 05/11/2021 04:09:05 05/10/20 21 05/10/2021 CBC w/ [...] resul ts are expec alexander. Not Available [facility] (Lab) [address] [facility], [place], [address], 05/11/2021 04:09:05 05/10/20 21 05/10/2021 lipid panel , blood total cholesterol 187 mg/dL 0-199 Not Available [facility] (Lab) [address] [place], [address], 05/11/2021 04:09:05 05/10/20 21 05/10/2021 lipid panel , blood triglyceride s 117 mg/dL 0.00-1 50.00 NCEP Refer ence Value s for Trigl yceri quinton: Wendy l: <150 mg/dL Borde rline High: 150 - 199 mg/dL High: 200 - 499 mg/dL Very High: >/= 500 mg/dL Not Available [facility] (Lab) [address] [place], [address], 05/11/2021 04:09:05 05/10/20 21 05/10/2021 lipid panel , blood HDL cholesterol 62 mg/dL 23-92 Not Available [facility] (Lab) [address] [place], [address], 05/11/2021 04:09:05 05/10/20 21 05/10/2021 lipid panel [...] mg/dL , HDL <40 mg/dL Not Available [facility] (Lab) [address] [place], [address], 05/11/2021 04:09:05 05/10/20 21 05/10/2021 lipid panel , blood non-HDL cholesterol 125 mg/dL no refere nce range A reaso nable goal for non-H DL bernice stero l is one that is 30 mg/dL highe r than the LDL bernice stero l goal. Not Available [facility] (Lab) [address], [place], [address], 05/11/2021 04:09:05 05/10/20 21 05/10/2021 lipid panel , blood chol/HDL ratio 3.0 . 0.0-5. 0 Not Available [facility] (Lab) [address] [facility], [place], [address], 05/11/2021 04:09:05 05/10/20 21 05/10/2021 CMP, serum or plasm a sodium 141 mmol/ L 136-14 5 Not Available [facility] (Lab) [address] [facility], [place], [address], 05/11/2021 04:09:06 05/10/20 21 05/10/2021 CMP, serum or plasm a potassium 4.5 mmol/ L 3.5-5. 1 Not Available [facility] (Lab) [address] [place], [address], 05/11/2021 04:09:06 05/10/20 21 05/10/2021 CMP, serum or plasm a chloride 107 mmol/ L 98-107 Not Available [facility] (Lab) [address] [place], [address], 05/11/2021 04:09:06 05/10/2005/10/2021 CMP, serum or plasm a carbon dioxide 26 mmol/ L 21-31 Not Available [facility] (Lab) [address] [place], [address], 05/11/2021 04:09:06 05/10/20 21 05/10/2021 CMP, serum or plasm a anion gap 8 mmol/ L 4-13 Not Available [facility] (Lab) [address] [place], [address], 05/11/2021 04:09:06 05/10/20 21 05/10/2021 CMP, serum or plasm a blood urea nitrogen 10 mg/dL 7-25 Not Available [facility] (Lab) [address] [place], [address], 05/11/2021 04:09:06 05/10/20 21 05/10/2021 CMP, serum or plasm a creatinine 0.62 mg/dL 0.60-1 .30 Not Available [facility] (Lab) [address] [facility], [place], [address], 05/11/2021 04:09:06 05/10/20 21 05/10/2021 CMP, serum or plasm a GFR () 117 mL/mi n/1.7 3_m2 60-300 Not Available [facility] (Lab) [address] [place], [address], 05/11/2021 04:09:06 05/10/20 21 05/10/2021 CMP, serum or plasm a GFR (others) 96 mL/mi n/1.7 3_m2 60-300 Not Available [facility] (Lab) [address] [place], [address], 05/11/2021 04:09:06 05/10/20 21 05/10/2021 CMP, serum or plasm a calcium 9.7 mg/dL 8.6-10 .2 Not Available [facility] (Lab) [address] [place], [address], 05/11/2021 04:09:06 05/10/20 21 05/10/2021 CMP, serum or plasm a glucose 93 mg/dL 70-100 Not Available [facility] (Lab) [address] [place], [address], 05/11/2021 04:09:06 05/10/20 21 05/10/2021 CMP, serum or plasm a protein, total 6.6 g/dL 6.4-8. 3 Not Available [facility] (Lab) [address] [facility], [place], [address], 05/11/2021 04:09:06 05/10/20 21 05/10/2021 CMP, serum or plasm a albumin 4.4 g/dL 3.5-5. 0 Not Available [facility] (Lab) [address] [place], [address], 05/11/2021 04:09:06 05/10/20 21 05/10/2021 CMP, serum or plasm a ALT 17 units /L 9-43 Not Available [facility] (Lab) [address] [place], [address], 05/11/2021 04:09:06 05/10/20 21 05/10/2021 CMP, serum or plasm a alkaline phosphatase 69 units /L 34-104 Not Available [facility] (Lab) [address] [place], [address], 05/11/2021 04:09:06 05/10/20 21 05/10/2021 CMP, serum or plasm a AST 17 units /L 13-39 Not Available [facility] (Lab) [address] [place], [address], 05/11/2021 04:09:06 05/10/20 21 05/10/2021 CMP, serum or plasm a bilirubin, total 0.7 mg/dL 0.2-1. 2 Not Available [facility] (Lab) [address] [place], [address], 05/11/2021 04:09:06 05/10/20 21 05/10/2021 TSH, serum or plasm a TSH 2.57 uIU/m L 0.30-5 .33 Not Available [facility] (Lab) [address] [place], [address], 05/11/2021 04:09:06 05/10/20 21 05/10/2021 vitam in D, 25-hy droxy , total , serum vitamin D, 25-hydroxy, total 25.1 NG/mL 30-80 low NOTE: Defic iency : <20 ng/mL Insuf ficie ncy: 20-29 ng/mL Optim um Level : 30-80 ng/mL Possi ble Toxic ity: >80 ng/mL Most patie nts with toxic ity have level s >150 ng/mL . Not Available [facility] (Lab) [address] [facility], [place], [address], 05/11/2021 04:09:06 05/10/20 21 05/10/2021 URINA LYSIS , WITH MICRO SCOPI C, REFLE X CULTU RE color, urine Yellow colorl ess, light yellow , yellow , dark yellow , straw Not Available [facility] (Lab) [address] [place], [address], 05/12/2021 08:05:35 05/10/20 21 05/10/2021 URINA LYSIS , WITH MICRO SCOPI C, REFLE X CULTU RE clarity, urine Slight ly Cloudy Not Available [facility] (Lab) [address] [place], [address], 05/12/2021 08:05:35 05/10/20 21 05/10/2021 URINA LYSIS , WITH MICRO SCOPI C, REFLE X CULTU RE glucose, urine Negati ve mg/dL negati ve Not Available [facility] (Lab) [address] [place], [address], 05/12/2021 08:05:35 05/10/20 21 05/10/2021 URINA LYSIS , WITH MICRO SCOPI C, REFLE X CULTU RE bilirubin, urine Negati ve mg/dL negati ve Not Available [facility] (Lab) [address] [place], [address], 05/12/2021 08:05:35 05/10/20 21 05/10/2021 URINA LYSIS , WITH MICRO SCOPI C, REFLE X CULTU RE ketones, urine Negati ve mg/dL negati ve Not Available [facility] (Lab) [address] [facility], [place], [address], 05/12/2021 08:05:35 05/10/20 21 05/10/2021 URINA LYSIS , WITH MICRO SCOPI C, REFLE X CULTU RE pH, urine 5.0 . 5.0-9. 0 Not Available [facility] (Lab) [address] [facility], [place], [address], 05/12/2021 08:05:35 05/10/20 21 05/10/2021 URINA LYSIS , WITH MICRO SCOPI C, REFLE X CULTU RE specific gravity, urine 1.019 . 1.001- 1.035 Not Available [facility] (Lab) [address] [facility], [place], [address], 05/12/2021 08:05:35 05/10/20 21 05/10/2021 URINA LYSIS , WITH MICRO SCOPI C, REFLE X CULTU RE blood, urine Small negati ve abnormal Not Available [facility] (Lab) [address] [place], [address], 05/12/2021 08:05:35 05/10/20 21 05/10/2021 URINA LYSIS , WITH MICRO SCOPI C, REFLE X CULTU RE protein, urine Negati ve mg/dL negati ve Not Available [facility] (Lab) [address] [place], [address], 05/12/2021 08:05:35 05/10/20 21 05/10/2021 URINA LYSIS , WITH MICRO SCOPI C, REFLE X CULTU RE urobilinogen , urine <2.0 mg/dL <2.0 Not Available [facility] (Lab) [address] [facility], [place], [address], 05/12/2021 08:05:35 05/10/20 21 05/10/2021 URINA LYSIS , WITH MICRO SCOPI C, REFLE X CULTU RE nitrite, urine Negati ve negati ve Not Available [facility] (Lab) [address] [facility], [place], [address], 05/12/2021 08:05:35 05/10/20 21 05/10/2021 URINA LYSIS , WITH MICRO SCOPI C, REFLE X CULTU RE leukocyte esterase, urine Large negati ve abnormal Not Available [facility] (Lab) [address] [facility], [place], [address], 05/12/2021 08:05:35 05/10/20 21 05/10/2021 URINA LYSIS , WITH MICRO SCOPI C, REFLE X CULTU RE WBC, urine 15-19 /hpf none, 0-5 abnormal Not Available [facility] (Lab) [address] [facility], [place], [address], 05/12/2021 08:05:35 05/10/20 21 05/10/2021 URINA LYSIS , WITH MICRO SCOPI C, REFLE X CULTU RE RBC, urine 0-2 /hpf none, 0-2 Not Available [facility] (Lab) [address] [facility], [place], [address], 05/12/2021 08:05:35 05/10/20 21 05/10/2021 URINA LYSIS , WITH MICRO SCOPI C, REFLE X CULTU RE bacteria, urine Trace /hpf none abnormal Not Available [facility] (Lab) [address] [place], [address], 05/12/2021 08:05:35 05/10/20 21 05/10/2021 URINA LYSIS , WITH MICRO SCOPI C, REFLE X CULTU RE squamous epithelial cells, urine Few /hpf none abnormal Not Available [facility] (Lab) [address] [facility], [place], [address], 05/12/2021 08:05:35 05/10/20 21 05/10/2021 URINA LYSIS , WITH MICRO SCOPI C, REFLE X CULTU RE non-squamous epi, urine Trace /hpf none abnormal Not Available [facility] (Lab) [address] [facility], [place], [address], 05/12/2021 08:05:35 05/10/20 21 05/10/2021 URINA LYSIS , WITH MICRO SCOPI C, REFLE X CULTU RE mucus, urine Modera te /hpf none, trace, few abnormal Urine Cultu re to follo w. Not Available [facility] (Lab) [address] [facility], [place], [address], 05/12/2021 08:05:35 05/10/20 21 05/10/2021 CULTU RE: URINE result report SEE RESULT S BELOW Test: Cultu re: Urine Speci men Sourc e: Urine Voide d Speci men Type: Urine Speci men Date: 2020 10:26 AM Resul t Date: 2020 7:02 AM Resul t Statu s: Final resul t Abnor mal: No Resul ting Lab: [facility] [address] [facility] [address] Tel: CULTU RE ----- ----- ----- --- No growt h in 1 day (dete ction level of 10,00 0 colon ies / ml.) Not Available [facility] (Lab) [address] [facility], [place], [address], 05/12/2021 08:05:36 05/10/20 22 05/10/2022 IMAGE GUIDE [...] as clini france khan nted. Not Available [facility] (Lab) [address] [facility], [place], [address], 05/15/2022 11:33:27 05/23/20 23 05/23/2023 IMAGE GUIDE [...] as clini france warra nted. Not Available [facility] (Lab) [address], [place], [address], 05/24/2023 12:21:38 09/24/20 24 09/24/2024 IMAGE GUIDE [...] as clini france warra nted. Not Available [facility] (Lab) [address], [place], [address], 10/01/2024 15:33:44 10/03/20 20 10/03/2020 MAMMO , scree tiffany, bilat eral No observ ation record ed. [facility] [address], [place], [address], 04/13/2021 21:00:47 05/31/20 21 05/30/2021 DEXA No observ ation record ed. [facility] [address] [facility], [place], [address], 06/01/2021 20:19:41 06/14/20 22 06/14/2022 MAMMO , scree tiffany, bilat eral No observ ation record ed. [email or web address] [address], [place], [address], 05/27/2023 15:59:40 09/24/20 23 09/21/2023 DEXA No observ ation record ed. [email or web address] [facility] [address], [place], [address], 10/09/2023 14:59:28 10/08/20 MAMMO , scree tiffany, bilat eral No observ ation record ed. [facility] [address] [place], [address], 10/07/2024 16:06:39 11/04/20 24 11/04/2024 MAMMO , scree tiffany, bilat eral No observ ation record ed. [facility] [address] [place] [address], [address], 11/20/2024 11:58:04 11/06/20 24 11/04/2024 MAMMO , scree tiffany, bilat eral No observ ation record ed. [facility] [address] [place] [address], [place], [address], 11/20/2024 11:58:04 12/03/19 25 11/04/2024 MAMMO , scree tiffany, bilat eral No observ ation record ed. [facility] [address], [place], [address], 12/10/2024 09:50:51 Result Notes None recorded. 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) w/o abn findings; Recorded Elsewhere : No Locati on: [facility] So urce: EHR Chron ic: N Practic e ID: [id number] Bill able Time: 10:15:00 AM Not Available [facility] 17:33:13 Insomnia 582317731 Active 2012 Insomnia, Other;Rec orded Elsewhere : No Locati on: [facility] So urce: EHR Chron ic: N Practic e ID: [id number] Bill able Time: 03:45:00 PM Not Available [facility] 0 17:33:13 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 Proteinur ia;Record ed Elsewhere : No Locati on: [facility] So urce: EHR Chron ic: N Practic e ID: [id number] Bill able Time: 04:30:00 PM Not Available [facility] 0 17:33:14 Specializ ed medical examinati on Active 2012 Gynecolog ical Examinati on;Record ed Elsewhere : No Locati on: [facility] So urce: EHR Chron ic: N Practic e ID: [id number] Bill able Time: 04:30:00 PM Not Available [facility] 0 17:33:14 Body mass index 25-29 - overweigh t [id number] Active 2015 Body mass index (BMI) 25.0-25.9 , adult;Rec orded Elsewhere : No Locati on: [facility] So urce: EHR Chron ic: N Practic e ID: [id number] Bill able Time: 08:30:00 AM Not Available [facility] 0 17:33:14 Evaluatio n finding Active 2018 Hematuria , unspecifi ed;Record ed Elsewhere : No Locati on: [facility] So urce: EHR Chron ic: N Practic e ID: [id number] Bill able Time: 08:30:00 AM Not Available [facility] 0 17:33:14 Constipat ion 78985370 Active 2012 Constipat ion, unspecifi ed;Record ed Elsewhere : No Locati on: [facility] So urce: EHR Chron ic: N Practic e ID: [id number] Bill able Time: 04:15:00 PM Not Available [facility] 0 17:33:14 Microscop ic hematuria 428650334 Active 2012 MICROSCOP IC HEMATURIA ;Recorded Elsewhere : No Locati on: [facility] So urce: EHR Chron ic: N Practic e ID: [id number] Bill able Time: 03:45:00 PM Not Available [facility] 0 17:33:14 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 [id number] 928360 Active 2016 Cervical low risk HPV DNA test positive; Recorded Elsewhere : No Locati on: [facility] So urce: EHR Chron ic: N Practic e ID: [id number] Bill able Time: 10:15:00 AM Not Available [facility] 0 17:33:14 Pelvic and perineal pain 175210334 Active 2016 Pelvic and perineal pain;Ronnie rded Elsewhere : No Locati on: [facility] So urce: EHR Chron ic: N Practic e ID: [id number] Bill able Time: 10:30:00 AM Not Available [facility] 0 17:33:14 Screening for malignant neoplasm of rectum Active 2010 Screening for malignant neoplasms of the rectum;Re corded Elsewhere : No Locati on: [facility] So urce: EHR Chron ic: N Practic e ID: [id number] Bill able Time: 01:30:00 PM Not Available [facility] [address] 17:33:[address] Concept Active 2016 Encntr for general adult medical exam w/o abnormal findings; Recorded Elsewhere : No Locati on: [facility] So urce: EHR Chron ic: N Practic e ID: [id number] Bill able Time: 10:15:00 AM Not Available [facility] 0 17:33:14 Female genital organ symptoms 884875488 Active 2010 Unspecifi ed symptom associate d with female genital organs;Re corded Elsewhere : No Locati on: [facility] So urce: EHR Chron ic: N Practic e ID: [id number] Bill able Time: 01:30:00 PM Not Available [facility] 0 17:33:14 Screening for malignant neoplasm of cervix Active 2012 Screening for malignant neoplasms of the cervix;Re corded Elsewhere : No Locati on: [facility] So urce: EHR Chron ic: N Practic e ID: [id number] Bill able Time: 04:30:00 PM Not Available [facility] 0 17:33:14 Vitamin D deficienc y [id number] Active 2012 Unspecifi ed vitamin d deficienc y;Recorde d Elsewhere : No Locati on: [facility] So urce: EHR Chron ic: N Practic e ID: [id number] Bill able Time: 03:45:00 PM Not Available [facility] 0 17:33:14 Postmenop ausal bleeding [id number] Active 2012 Postmenop ausal bleeding; Recorded Elsewhere : No Locati on: [facility] So urce: EHR Chron ic: Y Practic e ID: [id number] Bill able Time: 04:15:00 PM Not Available [facility] 0 17:33:15 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 Osteoporo sis;Recor ded Elsewhere : No Locati on: [facility] So urce: EHR Chron ic: N Practic e ID: [id number] Bill able Time: 04:30:00 PM Not Available [facility] 0 17:33:15 Abnormal cervical Papanicol aou smear [id number] Active 2010 Other abnormal papanicol aou smear of cervix and cervical HPV;Recor ded Elsewhere : No Locati on: [facility] So urce: EHR Chron ic: N Practic e ID: [id number] Bill able Time: 01:30:00 PM Not Available [facility] 0 17:33:15 Urgent desire to urinate [id number] Active 2012 URGENCY OF URINATION ;Recorded Elsewhere : No Locati on: [facility] So urce: EHR Chron ic: N Practic e ID: [id number] Bill able Time: 03:45:00 PM Not Available [facility] 0 17:33:[address] Concept Active 2016 Encounter for general adult medical exam w abnormal findings; Practice ID: [id number] Not Available [facility] 0 17:33:16 Problem Notes None recorded. Procedures Surgical History Date Name Laterality Status Provider Name and Address Organization Details Recorded Time 07/29/20 24 Date of Last Colonoscopy completed Susy Reed [facility] 09/24/2024 09:33:41 07/29/20 24 Colonoscopy completed Susy Reed [facility] 09/24/2024 09:33:20 07/29/20 24 endoscopy completed [facility] 09/24/2024 09:33:29 10/08/20 23 Date of Last Mammogram completed [facility] 09/24/2024 09:31:42 05/23/20 23 Date of Last Pap Smear completed [facility] 09/24/2024 09:31:12 11/18/19 14 Colonoscopy completed [facility] 09/09/2020 15:38:53 11/18/19 01 Breast Biopsy completed [facility] 09/09/2020 15:38:37 11/18/18 97 Breast Biopsy completed [facility] 09/09/2020 15:38:31 11/18/18 96 removal of ovarian cyst completed [facility] 09/09/2020 15:38:16 11/18/18 89 Colposcopy completed [facility] 09/09/2020 15:37:50 11/18/18 89 Dilation and Curettage completed [facility] 09/09/2020 15:38:01 Cholecystectomy completed [facility] 05/10/2022 09:45:00 Imaging Results Imaging Date Name Status LastModified by [facility] Details LastModified Time 10/03/2020 MAMMO, screening, bilateral completed [facility] [address], [place], [address], 04/13/2021 21:00:47 05/30/2021 DEXA completed [facility] [address], [place], [address], 06/01/2021 20:19:41 06/14/2022 MAMMO, screening, bilateral completed [email or web address] [address] [facility] [address], [place], [address], 05/27/2023 15:59:40 09/21/2023 DEXA completed [email or web address] [facility] [address], [place], [address], 10/09/2023 14:59:28 10/08/2023 MAMMO, screening, bilateral completed [facility] [address] [place], [address], 10/07/2024 16:06:39 11/04/2024 MAMMO, screening, bilateral completed [facility] [address] [place], [address], 11/20/2024 11:58:04 11/04/2024 MAMMO, screening, bilateral completed [facility] [address] [place], [address], 11/20/2024 11:58:04 11/04/2024 MAMMO, screening, bilateral completed [facility] [address] , [place], [address], 12/10/2024 09:50:51 Procedure Notes None recorded. Medical Equipment None Reported. Allergies No known drug allergies Medications Name Sig Start Date Stop Date Status Note LastModified by Organization Details LastModified Time amoxicill in 500 mg capsule take 1 capsule (500MG) by oral route 3 times every day for 10 days 02/04 completed Prescrib ed Elsewher e: No [facility] By: cmedical Encount er DateTime : [...] Prescrib ed Elsewher e: Yes Loca tion: [facility] odify By: betrha ricci DateTime : 08/25/20 13 04:30:00 PM Not Available Not Available Not Available Multiple Vitamin tablet take 1 tablet by oral route every day with food 2011 active Prescrib ed Elsewher e: No Locat ion: [facility] odify By: lea alamo DateTime : 01/23/20 [...] Prescrib ed Elsewher e: Yes Loca tion: [facility] odify By: amkuhstacy Hennessy ncounter DateTime : 12/18/19 19 08:30:00 AM Not Available Not Available Not Available omeprazol e 09/24 completed Not Available Not Available Not Available Vitals Date Recorded Body height Body mass index (BMI) Body weight Systolic blood pressure Diastolic blood pressure Provider Name and Address Organization Details Last Updated DateTime 05/10/2022 160.02 cm 26.9 kg/m2 80697.04 g 165 mm[Hg] 81 mm[Hg] Lyssa Wang [facility] 2 09:43:33 Date Recorded Body height Body mass index (BMI) Body weight Systolic blood pressure Diastolic blood pressure Provider Name and Address Organization Details Last Updated DateTime 05/23/2023 160.02 cm 26.6 kg/m2 07275.86 g 148 mm[Hg] 81 mm[Hg] Lyssa Wang [facility] 3 09:34:01 Date Recorded Body height Body mass index (BMI) Body weight Systolic blood pressure Diastolic blood pressure Systolic blood pressure Diastolic blood pressure Provider Name and Address Organization Details Last Updated DateTime 3 160.02 cm 26.6 kg/m2 19419.8 6 g 169 mm[Hg] 76 mm[Hg] 161 mm[Hg] 79 mm[Hg] Lyssa Wang [facility] 3 11:24:19 Date Recorded Body height Body mass index (BMI) Body weight Systolic blood pressure Diastolic blood pressure Provider Name and Address Organization Details Last Updated DateTime 09/24/2024 160.02 cm 24.8 kg/m2 17328.93 g 166 mm[Hg] 80 mm[Hg] Susy Reed [facility] 4 09:29:53 Date Recorded Body height Body mass index (BMI) Body weight Systolic blood pressure Diastolic blood pressure Systolic blood pressure Diastolic blood pressure Provider Name and Address Organization Details Last Updated DateTime 0 160.02 cm 26.2 kg/m2 58700.6 7 g 150 mm[Hg] 76 mm[Hg] 130 mm[Hg] 70 mm[Hg] Lyssa Wang [facility] 0 09:28:06 Social History Question Answer Notes LastModified by Organizat ion Details LastModified Time Tobacco Smoking Status Never [facility]oker [facility]2020 09:28:41 In The 14 Days [...] [email or web address] Not available 2021 09:09:46 Father Malignant neoplasm of lung [email or web address] Not available 2019 15:33:27 [...] SNOMED-CT Code Diagnosis ICD10 Code Diagnosis Note [id number] Ridge Abdalla MD [place] [address] [address] 09/10/2020 09:20:31 09/10/2020 13:39:48 Gynecologic examination [id number] Z01.419 This patient is here for her [...] - today Routine gy necologic examination done [id number] 9101 Z01.419 [id number] Ridge Abdalla MD [place] [address],[place] [address] 05/10/2022 09:09:00 05/10/2022 10:17:02 Gynecologic examination [id number] Z01.419 This patient is here for her [...] Cholestero l - ordered Pap - today [id number] Ridge Abdalla MD [place] [address],[place] [address] 05/23/2023 09:11:37 05/23/2023 10:08:04 Gynecologic examination 36036993 Z01.419 This patient is here for her [...] Cholestero l - ordered Pap - today [id number] Ridge Abdalla MD [place] [address],[place] [address] 11/04/2023 11:15:17 11/04/2023 12:10:10 Osteopenia [id number] M85.80 68-year-ol d female with osteopenia . [...] ce. More than 50% was counseling . [id number] Ridge Abdalla MD [place] [address],[place] [address] 09/24/2024 09:18:01 09/24/2024 10:04:40 Gynecologic examination [id number] Z01.419 This patient is here for her [...] Cook Member ID Guarantor Name 09/10/2020 1 [facility] [id number] Kristin Y Prosper [id number] 1 Kristin Y Prosper 05/10/2022 1 [facility] [id number] Kristin Y Prosper [id number] 1 Kristin Y Prosper 05/23/2023 1 [facility] [id number] Kristin Y Prosper [id number] 1 Kristin Y Prosper 11/04/2023 1 [facility] [id number] Kristin Y Prosper [id number] 1 Kristin Y Prosper 09/24/2024 1 [facility] [id number] Kristin Y Prosper [id number] 1 Kristin Y Prosper Notes Date Note [...] exercise Ridge Abdalla MD [address], [place], [address], [facility] 09/10/2020 09:45:30 05/10/2022 text/html Annual GYNReport ed bypatient.History:n o gynecologic complaints Urinary symptoms:No hematuria; No incontinence Vulva:No genital lesion Vagina:Normal vaginal discharge Breast:No breast pain; No breast lump Sexual complaints:No sexual complaints Menopausal Symptoms:No menopausal symptoms Psychological symptoms:No depression; No anxiety Preventive measures:Encourage self breast examination; Encourage regular exercise Ridge Abdalla MD [address], [place], [address], [facility] 05/10/2022 10:16:51 05/23/2023 text/html Annual GYNReport ed bypatient.History:n o gynecologic complaints Urinary symptoms:No hematuria; No incontinence Vulva:No genital lesion Vagina:Normal vaginal discharge Breast:No breast pain; No breast lump Sexual complaints:No sexual complaints; No pain during intercourse Menopausal Symptoms:No menopausal symptoms; Normal vaginal lubrication Psychological symptoms:No depression; No anxiety Preventive measures:Encourage self breast examination; Encourage regular exercise Ridge Abdalla MD [address], [place], [address], [facility] 05/23/2023 10:04:10 11/04/2023 text/html 68-year-old fema [...] problem as well. We spent 20 minutes [id number]. More than 50% was counseling. Ridge Abdalla MD [address], [place], [address], [facility] 11/04/2023 12:04:29 09/24/2024 text/html Annual GYNReport ed bypatient.History:n o gynecologic complaints Urinary symptoms:No hematuria; No incontinence Vulva:No genital lesion Vagina:Normal vaginal discharge Breast:No breast pain; No breast lump Sexual complaints:No sexual complaints Menopausal Symptoms:No menopausal symptoms; Normal vaginal lubrication Psychological symptoms:No depression; No anxiety Preventive measures:Encourage self breast examination; Encourage regular exercise Ridge Abdalla MD [address], [place], [address], [facility] 09/24/2024 10:04:04 OBGyn Episode Ob Episode Information Episode Created Date Number of Fetuses Patient Bloodtype Patient rh Status Prepregnancy Weight lbs Domestic Partner Domestic Partner Phone Father Name Adult Ministries Director Status 09/09/20 20 1 CLOSED Fetus Data [...]
--- OUTSIDE RECORDS SUMMARY | 2025-03-26 07:14 | XMS_ITS | Clinical Summary ---
Author Organization [facility] Address [address] [place] [address] Care Team Providers Care Asbestos Abatement Technician Name Role Phone Ridge Abdalla MD Primary Care Provider [phone] Encounters Date Type Department Care Team Description 02/03/2025 External Device Data [facility]CTION Provider, Abstract 01/23/2025 External Device Data [facility]CTION Provider, Abstract 01/22/2025 External Device Data [facility]STRACTION Provider, Abstract 01/20/2025 External Device Data [facility]STRACTION Provider, Abstract 01/19/2025 External Device Data [facility]STRACTION Provider, Abstract 01/05/2025 External Device Data [facility] ABSTRACTION Provider, Abstract from Last 3 Months Social History Tobacco Use Types Packs/Day Years Used Date Smoking Tobacco: Never Assessed Comments Unknown Sex and Gender Information Value Date Recorded Sex Assigned at Not on file 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 Gender Identity Not on file Sexual Orientation Not on file Plan of Treatment Health Maintenance Due Date Last Done Comments DTAP/TDAP/TD VACCINES (1 - Tdap) 1974 FIT-DNA Q 3 years 2000 FIT/FOBT Q 1 year 2000 Flex Sig/CT Colonography Q 5 years 2000 PNEUMOCOCCAL VACCINE 50+ YEA RS (1 of 1 - PCV) 2005 ZOSTER VACCINE (1 of 2) 2005 OSTEOPOROSIS SCREENING 2020 INFLUENZA VACCINE (#1) 2024 BREAST CANCER SCREENING 11/04/2025 11/04/20, 10/02/2023, 06/14/2022, Additional history exists RSV VACCINE (60+ or ) (1 - 1-dose 75+ series) 2030 COLORECTAL SCREENING 07/29/2034 07/29/2024, 11/17/20 13 Colorectal Cancer Screening 07/29/2034 Procedures Procedure Name Priority Date/Time Associated Diagnosis Comments MAMMO 3D STEVENSON SCREEN BILAT W OR WO CAD Routine 11/04/2024 9:01 AM BOARD MILL SUPERVISOR Encounter for screening mammogram for malignant neoplasm of breast from Last 3 Months or Most Recently Relevant to Health Maintenance Results * MAMMO 3D STEVENSON SCREEN BILAT W OR WO CAD (11/04/2024 9:01 AM BOARD MILL SUPERVISOR) Anatomical Region Laterality Modality Breast Bilateral Mammography 11/04/2024 9:04 AM BOARD MILL SUPERVISOR Narrative 11/04/2024 9:11 AM BOARD MILL SUPERVISOR EXAM: MAMMO 3D STEVENSON SCREEN BILAT W OR WO CAD DATE: 11/04/2024 HISTORY: Encounter for screening mammogram for malignant neoplasm of breast. Prior left breast biopsy. COMPARISON: 10/02/2023 DENSITY: Heterogeneously dense which could obscure small [...] skin thickening, or suspicious calcifications are seen. ASSESSMENT: BIRADS Category 2: Benign finding(s). Digital technology was employed plus computer-aided detection software was utilized in interpretation of these images. us Ridge Abdalla MD MAMMO ORDERABLES Final Res ult from Last 3 Months or Most Recently Relevant to Health Maintenance Insurance [facility] OPEN ACCESS HMO Care Teams Asbestos Abatement Technician Relationship Specialty Start Date End Date Ridge Abdalla MD [address] [id number] PCP - General Obstetrics and Gynecology 10/02/23
--- OUTSIDE RECORDS SUMMARY | 2025-03-26 07:14 | XMS_ITS | Continuity of Care Document ---
Author Organization [facility] Address [address] [place] [address] [address] [place] [address] Phone Care Team Providers Care Asphalt Raker Name Role Phone Zaria Weller Unavailable Unavailable Procedures Procedure Date Eye Exam, New Patient Advance Directives Directive Yes / No Effective Date File Name No Information Encounters Encounter Description Practice Location Reason(s) For Visit Diagnoses Date Provider Providers Copied on Encounter [facility], [id number] [place] [address] [address], [place], [place], [id number], [place] tel:[phone] [facility] Claire No Information 7-[address] Janee Enc[address]. [address] , [address], [place], [address], [place]. tel:[phone] Family History Family Member Type Diagnosis Age At Onset No Information Payers Payer name Insurance type Covered alliance party ID Authoriza tion(s) [employer] [place] [id number] Social History Type Description Quantity Date Captured Comments Sex Female Smoking Status No Information Chief Complaint And Reason For Visit No Information Reason For Referral Reason For Referral No Information History Of Present Illness Encounter Date Complaint History Of Prese nt Illness No Information Functional Status Date Functional Assessmen t No Information Instructions Date Instruction Additional Infor mation No Information Assessments Type Assessment Date No Information Patient Care Teams Name Effective Dates (start - stop) Status Members No Information
[2025-03-26 07:48] LABS: Hematocrit 40.6 % (37.0-47.0); Hemoglobin 12.9 g/dL (12.0-15.0); Mean Corpuscular HGB Conc 31.8 g/dl (32-36); Mean Corpuscular Hemoglobin 29.5 pg (26-34); Mean Corpuscular Volume 92.9 fl (80-100); Mean Platelet Volume 9.2 fl (7.4-10.4); Platelet Count Result 436 k/mm3 (150-375); Red Blood Count 4.37 M/mm3 (4.2-5.4); Red Cell Distribution Width 13.2 % (11.5-14.5); White Blood Count 6.9 K/mm3 (4.5-10.0)
[2025-03-26 08:00] LABS: Alanine Aminotransferase 19 U/L (6-35); Albumin Level 4.5 g/dL (3.5-5.1); Alkaline Phosphatase 61 U/L (38-126); Anion Gap 8 mmol/L (4-12); Aspartate Amino Transferase 22 U/L (14-36); Blood Urea Nitrogen 11 mg/dL (7-17); Calcium 8.9 mg/dL (8.4-10.2); Carbon Dioxide 27 mmol/L (22-30); Chloride 107 mmol/L (98-107); Estimated Glomerular Filt Rate > 60; Glucose 94 mg/dL (65-110); Potassium 3.8 mmol/L (3.4-5.0); Sodium 142 mmol/L (137-145)
[2025-03-26 08:23] LABS: Prothrombin Time 13.9 Seconds (11.1-14.7)
== END 2025-03-26 07:06 | disposition home or self-care (01) ==
LOC: ANHLAB 07:10
PROVIDERS: Visit Provider Nurse Practitioner
DX: K76.0 Fatty (change of) liver, not elsewhere classified (principal)
CPT/HCPCS: 36415; 80053; 82248; 85027; 85610

== ENCOUNTER 2025-04-08 06:57 | Outpatient (CLI) | payer OTHER, MEDICARE, SELFPAY ==
--- OUTSIDE RECORDS SUMMARY | 2025-04-08 07:01 | XMS_ITS | Encounter Summary ---
Author Organization [employer] [facility] Address 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
--- OUTSIDE RECORDS SUMMARY | 2025-04-08 07:01 | XMS_ITS | Clinical Summary ---
Author Organization [facility] Address [address] [place] [address] Care Team Providers Care Coal Chute Worker Name Role Phone Ridge Abdalla MD Primary Care Provider [phone]- [phone] Encounters Date Type Department Care Team Description 04/06/2025 External Device Data [facility] ABSTRACTION Provider, Abstract 03/30/2025 External Device Data [facility] ABSTRACTION Provider, Abstract 03/30/2025 External Device Data [facility] ABSTRACTION Provider, Abstract 03/30/2025 External Device Data [facility] ABSTRACTION Provider, Abstract 02/03/2025 External Device Data [facility] ABSTRACTION Provider, [...] on file Legal Sex Female 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 Gender Identity Not on file Sexual Orientation [...] VACCINE (#1) 2024 BREAST CANCER SCREENING 11/04/2025 11/04/20 24, 10/02/2023, 06/14/2022, Additional history exists RSV VACCINE (60+ or ) (1 - 1-dose 75+ series) 2030 COLORECTAL SCREENING 07/29/2034 07/29/2024, 11/17/20 13 Colorectal Cancer Screening 07/29/2034 Procedures Procedure Name Priority Date/Time Associated Diagnosis Comments MAMMO 3D STEVENSON SCREEN BILAT W OR WO CAD Routine 11/04/2024 9:01 AM REGISTERED DENTAL ASSISTANT Encounter for screening mammogram for malignant neoplasm of breast from Last 3 Months or Most Recently Relevant to Health Maintenance Results * MAMMO 3D STEVENSON SCREEN BILAT W OR WO CAD (11/04/2024 9:01 AM REGISTERED DENTAL ASSISTANT) Anatomical Region Laterality Modality Breast Bilateral Mammography 11/04/2024 9:04 AM REGISTERED DENTAL ASSISTANT Narrative 11/04/2024 9:11 AM REGISTERED DENTAL ASSISTANT EXAM: MAMMO 3D STEVENSON SCREEN BILAT W [...] Most Recently Relevant to [place] [address] [employer] OPEN ACCESS HMO Care Teams Coal Chute Worker Relationship Specialty Start Date End Date Ridge Abdalla MD [address] [place], [place] [id number] PCP - General Obstetrics and Gynecology 10/02/23
--- OUTSIDE RECORDS SUMMARY | 2025-04-08 07:01 | XMS_ITS | Clinical Summary ---
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
--- OUTSIDE RECORDS SUMMARY | 2025-04-08 07:01 | XMS_ITS | Continuity of Care Document ---
Author Organization [facility] Address [address] [place] [address] Phone Care Team Providers Care Classifier Tender Name Role Phone Ned Layton Unavailable Unavailable Procedures Procedure Date Therapeutic Exercise Neuromuscular Re-Ed Manual Therapy Hot or Cold Pack PT Evaluation Moderate Complexity Therapeutic Exercise Neuromuscular Re-Ed Advance Directives Directive Yes / No Effective Date File Name No Information Encounters Encounter Description Practice Location Reason(s) For Visit Diagnoses Date Provider Providers Copied on Encounter [facility], [address], [id number], tel:[phone] [place] No Information 7 Justen Marino. [address] [facility], [address], [place], [facility], [place]. tel: [phone] Referring Provider: Ronnell Ho, [facility] [address], [place], [address]. tel:[phone] [facility], [address] [address], [place], [place], [id number], tel:[phone] [place] Pain in left ankle and joints of left footEffusion, left ankleStiffness of left ankle, not elsewhere classifiedNondis p fx of lateral malleolus of l fibula, 7thD 7 [address]. [address] [facility], [address], [place], [address], [place]. tel: [phone] Referring Provider: Ronnell Ho, [address] [facility] [facility] [address], [place], [address]. tel:[phone] Family History Family Member Type Diagnosis Age At Onset No Information Payers Payer name Insurance type Covered constitution party ID Authoriza tiosiris(s) [facility] [id number] Social History Type Description Quantity Date Captured [...]
--- OUTSIDE RECORDS SUMMARY | 2025-04-08 07:01 | XMS_ITS | Data Portability ---
Author Organization [facility] Mack Address [address] [place] [address] Assessment Encounter Date Assessment Date Assessment LastModified [...] 25-hydroxy, total, serum 2019 020 [email or web address] [facility] ([facility]), [address] [facility] [address] , [address], [place], [address], 09:44:06 CBC 2019 020 [email or web address] [facility] ([facility]), [address] [facility] [address] , [address], [place], [address], 1 12:35:48 TSH, serum or plasma 2019 020 [email or web address] [facility] ([facility]), [address] [place] [address] [address], [place], [address], 1 12:35:48 CMP, serum or plasma 2019 020 [email or web address] [facility]), [address] [place] [address] [address], [place], [address], 1 12:35:48 lipid panel, serum 2019 020 [email or web address] [facility]), [address] [place] [address] [address], [place], [address], 1 12:35:48 urinalysis, dipstick 2019 020 [email or web address] Mack, [facility] [address], [address], [place], [address], 0 22:10:23 Referral None recorded. Procedures None recorded. Surgeries None recorded. Imaging None recorded. Medication Orders alendronate 35 mg tablet 2022 024 [id number], [address] [facility], [place], [place], [id number], 4 09:30:46 Patient TargetsNo targets recorded. Patient InstructionsNo instructions recorded. Reason for Referral None Reported. Results Created Date Observation Date Name Description Value Unit Range Abnormal Flag Note LastModifiedBy Organization Detail LastModifiedTime 09/10/2009/14/2020 cultu re, urine specimen source Urine - Void Not Available [facility]) [address] [place] [address] [address], [place], [address], 09/14/2020 04:45:50 09/10/20 20 09/14/2020 cultu re, urine culture, urine See Below No growt h Not Available [facility] ([facility]) [address], [place], [address], 09/14/2020 04:45:50 09/10/20 20 09/14/2020 pap, LB [...] Techn 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 Case revie wed and diagn osis rende red at [facility] [employer] [facility], d/b/a Path [facility], [address] [place] [address] Emil Ribeiro MD, Labor atory Direc tor. CONFI DENTI AL Not Available [facility] ([facility]) [address], [place], [address], 09/14/2020 10:56:54 09/10/2009/10/2020 urina lysis , dipst ick Leukocytes TRACE Not Available [facility] [address], [place], [address], 09/10/2020 09:38:36 09/10/20 20 09/10/2020 urina lysis , dipst ick Blood +++ Not Available [facility] [address], [place], [address], 09/10/2020 09:38:36 05/10/20 21 05/10/2021 CBC w/ auto diff WBC 6.3 10'3/ uL 3.6-10 .2 Not Available [facility] (Lab) [address], [place], [address], 05/11/2021 04:09:05 05/10/20 21 05/10/2021 CBC w/ auto diff RBC 4.50 10'6/ uL (based on docume nted legal sex) 4.10-5 .30 Not Available [facility] (Lab) [address], [place], [address], 05/11/2021 04:09:05 05/10/20 21 05/10/2021 CBC w/ auto diff HGB 13.3 g/dL (based on docume nted legal sex) 11.9-1 5.8 Not Available [facility] (Lab) [address], [place], [address], 05/11/2021 04:09:05 05/10/20 21 05/10/2021 CBC w/ auto diff HCT 41.3 % (based on docume nted legal sex) 37.4-4 8.3 Not Available [facility] (Lab) [address] [place], [address], 05/11/2021 04:09:05 05/10/20 21 05/10/2021 CBC w/ auto diff MCV 93.0 fL 82.0-9 9.0 Not Available [facility] (Lab) [address], [place], [address], 05/11/2021 04:09:05 05/10/20 21 05/10/2021 CBC w/ auto diff MCH 30.0 pg 27.0-3 3.0 Not Available [facility] (Lab) [address] [facility], [place], [address], 05/11/2021 04:09:05 05/10/20 21 05/10/2021 CBC w/ auto diff MCHC 32.0 g/dL 32.0-3 6.0 Not Available [facility] (Lab) [address], [place], [address], 05/11/2021 04:09:05 05/10/20 21 05/10/2021 CBC w/ auto diff RDW 13.0 % 11.0-1 5.0 Not Available [facility] (Lab) [address], [place], [address], 05/11/2021 04:09:05 05/10/20 21 05/10/2021 CBC w/ auto diff plt 464 10'3/ uL 150-45 0 high Not Available [facility] (Lab) [address] [facility], [place], [address], 05/11/2021 04:09:05 05/10/20 21 05/10/2021 CBC w/ auto diff MPV 9.7 fL Not Available [facility] (Lab) [address] [facility], [place], [address], 05/11/2021 04:09:05 05/10/20 21 05/10/2021 CBC w/ auto diff NRBC's 0.00 % 0 Not Available [facility] (Lab) [address] [place], [address], 05/11/2021 04:09:05 05/10/20 21 05/10/2021 CBC w/ auto diff absolute NRBCs 0.0 10'3/ uL 0 Not Available [facility] (Lab) [address] [place], [address], 05/11/2021 04:09:05 05/10/20 21 05/10/2021 CBC w/ auto diff neutrophils 54.0 % 37.0-7 2.0 Not Available [facility] (Lab) [address] [place], [address], 05/11/2021 04:09:05 05/10/20 21 05/10/2021 CBC w/ auto diff lymphocytes 35.0 % 16.0-4 8.0 Not Available [facility] (Lab) [address] [place], [address], 05/11/2021 04:09:05 05/10/20 21 05/10/2021 CBC w/ auto diff monocytes 9.0 % 4.0-14 .0 Not Available [facility] (Lab) [address] [place], [address], 05/11/2021 04:09:05 05/10/20 21 05/10/2021 CBC w/ auto diff eosinophils 1.0 % 0.0-9. 0 Not Available [facility] (Lab) [address] [facility], [place], [address], 05/11/2021 04:09:05 05/10/20 21 05/10/2021 CBC w/ auto diff basophils 1.0 % 0.0-2. 0 Not Available [facility] (Lab) [address] [place], [address], 05/11/2021 04:09:05 05/10/20 21 05/10/2021 CBC w/ auto diff immature granulocytes 0.0 % no define d refere nce range Not Available [facility] (Lab) [address] [place], [address], 05/11/2021 04:09:05 05/10/20 21 05/10/2021 CBC w/ auto diff absolute neutrophils 3.5 10'3/ uL 1.1-6. 0 Not Available [facility] (Lab) [address] [place], [address], 05/11/2021 04:09:05 05/10/20 21 05/10/2021 CBC w/ auto diff absolute lymphocytes 2.2 10'3/ uL 0.7-3. 4 Not Available [facility] (Lab) [address] [facility], [place], [address], 05/11/2021 04:09:05 05/10/20 21 05/10/2021 CBC w/ auto diff absolute monocytes 0.5 10'3/ uL 0.3-1. 0 Not Available [facility] (Lab) [address] [facility], [place], [address], 05/11/2021 04:09:05 05/10/20 21 05/10/2021 CBC w/ auto diff absolute eosinophils 0.1 10'3/ uL 0.0-0. 6 Not Available [facility] (Lab) [address] [place], [address], 05/11/2021 04:09:05 05/10/20 21 05/10/2021 CBC w/ auto diff absolute basophils 0.1 10'3/ uL 0.0-0. 1 Not Available [facility] (Lab) [address] [place], [address], 05/11/2021 04:09:05 05/10/20 21 05/10/2021 CBC w/ [...] resul ts are expec alexander. Not Available [facility] (Lab) [address] [facility], [place], [address], 05/11/2021 04:09:05 05/10/20 21 05/10/2021 lipid panel , blood total cholesterol 187 mg/dL 0-199 Not Available [facility] (Lab) [address] [place], [address], 05/11/2021 04:09:05 05/10/20 21 05/10/2021 lipid panel , blood triglyceride s 117 mg/dL 0.00-1 50.00 NCEP Refer ence Value s for Trigl yceri quinton: Wendy l: <150 mg/dL Borde rline High: 150 - 199 mg/dL High: 200 - 499 mg/dL Very High: >/= 500 mg/dL Not Available [facility] (Lab) [address] [place], [address], 05/11/2021 04:09:05 05/10/20 21 05/10/2021 lipid panel , blood HDL cholesterol 62 mg/dL 23-92 Not Available [facility] (Lab) [address] [place], [address], 05/11/2021 04:09:05 05/10/20 21 05/10/2021 lipid panel [...] mg/dL , HDL <40 mg/dL Not Available [facility] (Lab) [address] [place], [address], 05/11/2021 04:09:05 05/10/20 21 05/10/2021 lipid panel , blood non-HDL cholesterol 125 mg/dL no refere nce range A reaso nable goal for non-H DL bernice stero l is one that is 30 mg/dL highe r than the LDL bernice stero l goal. Not Available [facility] (Lab) [address], [place], [address], 05/11/2021 04:09:05 05/10/20 21 05/10/2021 lipid panel , blood chol/HDL ratio 3.0 . 0.0-5. 0 Not Available [facility] (Lab) [address] [facility], [place], [address], 05/11/2021 04:09:05 05/10/20 21 05/10/2021 CMP, serum or plasm a sodium 141 mmol/ L 136-14 5 Not Available [facility] (Lab) [address] [facility], [place], [address], 05/11/2021 04:09:06 05/10/20 21 05/10/2021 CMP, serum or plasm a potassium 4.5 mmol/ L 3.5-5. 1 Not Available [facility] (Lab) [address] [place], [address], 05/11/2021 04:09:06 05/10/20 21 05/10/2021 CMP, serum or plasm a chloride 107 mmol/ L 98-107 Not Available [facility] (Lab) [address] [place], [address], 05/11/2021 04:09:06 05/10/2005/10/2021 CMP, serum or plasm a carbon dioxide 26 mmol/ L 21-31 Not Available [facility] (Lab) [address] [place], [address], 05/11/2021 04:09:06 05/10/20 21 05/10/2021 CMP, serum or plasm a anion gap 8 mmol/ L 4-13 Not Available [facility] (Lab) [address] [place], [address], 05/11/2021 04:09:06 05/10/20 21 05/10/2021 CMP, serum or plasm a blood urea nitrogen 10 mg/dL 7-25 Not Available [facility] (Lab) [address] [place], [address], 05/11/2021 04:09:06 05/10/20 21 05/10/2021 CMP, serum or plasm a creatinine 0.62 mg/dL 0.60-1 .30 Not Available [facility] (Lab) [address] [facility], [place], [address], 05/11/2021 04:09:06 05/10/20 21 05/10/2021 CMP, serum or plasm a GFR () 117 mL/mi n/1.7 3_m2 60-300 Not Available [facility] (Lab) [address] [place], [address], 05/11/2021 04:09:06 05/10/20 21 05/10/2021 CMP, serum or plasm a GFR (others) 96 mL/mi n/1.7 3_m2 60-300 Not Available [facility] (Lab) [address] [place], [address], 05/11/2021 04:09:06 05/10/20 21 05/10/2021 CMP, serum or plasm a calcium 9.7 mg/dL 8.6-10 .2 Not Available [facility] (Lab) [address] [place], [address], 05/11/2021 04:09:06 05/10/20 21 05/10/2021 CMP, serum or plasm a glucose 93 mg/dL 70-100 Not Available [facility] (Lab) [address] [place], [address], 05/11/2021 04:09:06 05/10/20 21 05/10/2021 CMP, serum or plasm a protein, total 6.6 g/dL 6.4-8. 3 Not Available [facility] (Lab) [address] [facility], [place], [address], 05/11/2021 04:09:06 05/10/20 21 05/10/2021 CMP, serum or plasm a albumin 4.4 g/dL 3.5-5. 0 Not Available [facility] (Lab) [address] [place], [address], 05/11/2021 04:09:06 05/10/20 21 05/10/2021 CMP, serum or plasm a ALT 17 units /L 9-43 Not Available [facility] (Lab) [address] [place], [address], 05/11/2021 04:09:06 05/10/20 21 05/10/2021 CMP, serum or plasm a alkaline phosphatase 69 units /L 34-104 Not Available [facility] (Lab) [address] [place], [address], 05/11/2021 04:09:06 05/10/20 21 05/10/2021 CMP, serum or plasm a AST 17 units /L 13-39 Not Available [facility] (Lab) [address] [place], [address], 05/11/2021 04:09:06 05/10/20 21 05/10/2021 CMP, serum or plasm a bilirubin, total 0.7 mg/dL 0.2-1. 2 Not Available [facility] (Lab) [address] [place], [address], 05/11/2021 04:09:06 05/10/20 21 05/10/2021 TSH, serum or plasm a TSH 2.57 uIU/m L 0.30-5 .33 Not Available [facility] (Lab) [address] [place], [address], 05/11/2021 04:09:06 05/10/20 21 05/10/2021 vitam in D, 25-hy droxy , total , serum vitamin D, 25-hydroxy, total 25.1 NG/mL 30-80 low NOTE: Defic iency : <20 ng/mL Insuf ficie ncy: 20-29 ng/mL Optim um Level : 30-80 ng/mL Possi ble Toxic ity: >80 ng/mL Most patie nts with toxic ity have level s >150 ng/mL . Not Available [facility] (Lab) [address] [facility], [place], [address], 05/11/2021 04:09:06 05/10/20 21 05/10/2021 URINA LYSIS , WITH MICRO SCOPI C, REFLE X CULTU RE color, urine Yellow colorl ess, light yellow , yellow , dark yellow , straw Not Available [facility] (Lab) [address] [place], [address], 05/12/2021 08:05:35 05/10/20 21 05/10/2021 URINA LYSIS , WITH MICRO SCOPI C, REFLE X CULTU RE clarity, urine Slight ly Cloudy Not Available [facility] (Lab) [address] [place], [address], 05/12/2021 08:05:35 05/10/20 21 05/10/2021 URINA LYSIS , WITH MICRO SCOPI C, REFLE X CULTU RE glucose, urine Negati ve mg/dL negati ve Not Available [facility] (Lab) [address] [place], [address], 05/12/2021 08:05:35 05/10/20 21 05/10/2021 URINA LYSIS , WITH MICRO SCOPI C, REFLE X CULTU RE bilirubin, urine Negati ve mg/dL negati ve Not Available [facility] (Lab) [address] [place], [address], 05/12/2021 08:05:35 05/10/20 21 05/10/2021 URINA LYSIS , WITH MICRO SCOPI C, REFLE X CULTU RE ketones, urine Negati ve mg/dL negati ve Not Available [facility] (Lab) [address] [facility], [place], [address], 05/12/2021 08:05:35 05/10/20 21 05/10/2021 URINA LYSIS , WITH MICRO SCOPI C, REFLE X CULTU RE pH, urine 5.0 . 5.0-9. 0 Not Available [facility] (Lab) [address] [facility], [place], [address], 05/12/2021 08:05:35 05/10/20 21 05/10/2021 URINA LYSIS , WITH MICRO SCOPI C, REFLE X CULTU RE specific gravity, urine 1.019 . 1.001- 1.035 Not Available [facility] (Lab) [address] [facility], [place], [address], 05/12/2021 08:05:35 05/10/20 21 05/10/2021 URINA LYSIS , WITH MICRO SCOPI C, REFLE X CULTU RE blood, urine Small negati ve abnormal Not Available [facility] (Lab) [address] [place], [address], 05/12/2021 08:05:35 05/10/20 21 05/10/2021 URINA LYSIS , WITH MICRO SCOPI C, REFLE X CULTU RE protein, urine Negati ve mg/dL negati ve Not Available [facility] (Lab) [address] [place], [address], 05/12/2021 08:05:35 05/10/20 21 05/10/2021 URINA LYSIS , WITH MICRO SCOPI C, REFLE X CULTU RE urobilinogen , urine <2.0 mg/dL <2.0 Not Available [facility] (Lab) [address] [facility], [place], [address], 05/12/2021 08:05:35 05/10/20 21 05/10/2021 URINA LYSIS , WITH MICRO SCOPI C, REFLE X CULTU RE nitrite, urine Negati ve negati ve Not Available [facility] (Lab) [address] [facility], [place], [address], 05/12/2021 08:05:35 05/10/20 21 05/10/2021 URINA LYSIS , WITH MICRO SCOPI C, REFLE X CULTU RE leukocyte esterase, urine Large negati ve abnormal Not Available [facility] (Lab) [address] [facility], [place], [address], 05/12/2021 08:05:35 05/10/20 21 05/10/2021 URINA LYSIS , WITH MICRO SCOPI C, REFLE X CULTU RE WBC, urine 15-19 /hpf none, 0-5 abnormal Not Available [facility] (Lab) [address] [facility], [place], [address], 05/12/2021 08:05:35 05/10/20 21 05/10/2021 URINA LYSIS , WITH MICRO SCOPI C, REFLE X CULTU RE RBC, urine 0-2 /hpf none, 0-2 Not Available [facility] (Lab) [address] [facility], [place], [address], 05/12/2021 08:05:35 05/10/20 21 05/10/2021 URINA LYSIS , WITH MICRO SCOPI C, REFLE X CULTU RE bacteria, urine Trace /hpf none abnormal Not Available [facility] (Lab) [address] [place], [address], 05/12/2021 08:05:35 05/10/20 21 05/10/2021 URINA LYSIS , WITH MICRO SCOPI C, REFLE X CULTU RE squamous epithelial cells, urine Few /hpf none abnormal Not Available [facility] (Lab) [address] [facility], [place], [address], 05/12/2021 08:05:35 05/10/20 21 05/10/2021 URINA LYSIS , WITH MICRO SCOPI C, REFLE X CULTU RE non-squamous epi, urine Trace /hpf none abnormal Not Available [facility] (Lab) [address] [facility], [place], [address], 05/12/2021 08:05:35 05/10/20 21 05/10/2021 URINA LYSIS , WITH MICRO SCOPI C, REFLE X CULTU RE mucus, urine Modera te /hpf none, trace, few abnormal Urine Cultu re to follo w. Not Available [facility] (Lab) [address] [facility], [place], [address], 05/12/2021 08:05:35 05/10/20 21 05/10/2021 CULTU RE: URINE result report SEE RESULT S BELOW Test: Cultu re: Urine Speci men Sourc e: Urine Voide d Speci men Type: Urine Speci men Date: 2020 10:26 AM Resul t Date: 2020 7:02 AM Resul t Statu s: Final resul t Abnor mal: No Resul ting Lab: [facility] [address] [facility] [address] Tel: CULTU RE ----- ----- ----- --- No growt h in 1 day (dete ction level of 10,00 0 colon ies / ml.) Not Available [facility] (Lab) [address] [facility], [place], [address], 05/12/2021 08:05:36 05/10/20 22 05/10/2022 IMAGE GUIDE [...] as clini france khan nted. Not Available [facility] (Lab) [address] [facility], [place], [address], 05/15/2022 11:33:27 05/23/20 23 05/23/2023 IMAGE GUIDE [...] s: LMP (if appli cable ): Clini ixao Histo ry/Pr eviou s Pap: Type of [...] as clini france warra nted. Not Available [facility] (Lab) [address], [place], [address], 05/24/2023 12:21:38 09/24/20 24 09/24/2024 IMAGE GUIDE [...] as clini france warra nted. Not Available [facility] (Lab) [address], [place], [address], 10/01/2024 15:33:44 10/03/20 20 10/03/2020 MAMMO , scree tiffany, bilat eral No observ ation record ed. [facility] [address], [place], [address], 04/13/2021 21:00:47 05/31/20 21 05/30/2021 DEXA No observ ation record ed. [facility] [address] [facility], [place], [address], 06/01/2021 20:19:41 06/14/20 22 06/14/2022 MAMMO , scree tiffany, bilat eral No observ ation record ed. [email or web address] [address], [place], [address], 05/27/2023 15:59:40 09/24/20 23 09/21/2023 DEXA No observ ation record ed. [email or web address] [facility] [address], [place], [address], 10/09/2023 14:59:28 10/08/20 MAMMO , scree tiffany, bilat eral No observ ation record ed. [facility] [address] [place], [address], 10/07/2024 16:06:39 11/04/20 24 11/04/2024 MAMMO , scree tiffany, bilat eral No observ ation record ed. [facility] [address] [place] [address], [address], 11/20/2024 11:58:04 11/06/20 24 11/04/2024 MAMMO , scree tiffany, bilat eral No observ ation record ed. [facility] [address] [place] [address], [place], [address], 11/20/2024 11:58:04 12/03/19 25 11/04/2024 MAMMO , scree tiffany, bilat eral No observ ation record ed. [facility] [address], [place], [address], 12/10/2024 09:50:51 Result Notes None recorded. Problems Name Problem SNOMED Code Status Onset Date Resolution Date Notes Provider Name and Address Organization Details Recorded Time SNOMED CT Concept Active 2016 Encntr for gynecologist exam (general) (routine) w/o abn findings; Recorded Elsewhere : No Locati on: [facility] So urce: EHR Chron ic: N Practic e ID: [id number] Bill able Time: 10:15:00 AM Not Available [facility] 17:33:13 Insomnia 429668567 Active 2012 Insomnia, Other;Rec orded Elsewhere : No Locati on: [facility] So urce: EHR Chron ic: N Practic e ID: [id number] Bill able Time: 03:45:00 PM Not Available [facility] 0 17:33:13 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 Proteinur ia;Record ed Elsewhere : No Locati on: [facility] So urce: EHR Chron ic: N Practic e ID: 0001 Bill able Time: 04:30:00 PM Not Available [facility] 0 17:33:14 Specializ ed medical examinati on Active 2012 Gynecolog ical Examinati on;Record ed Elsewhere : No Locati on: [facility] So urce: EHR Chron ic: N Practic e ID: [id number] Bill able Time: 04:30:00 PM Not Available [facility] 0 17:33:14 Body mass index 25-29 - overweigh t [id number] Active 2015 Body mass index (BMI) 25.0-25.9 , adult;Rec orded Elsewhere : No Locati on: [facility] So urce: EHR Chron ic: N Practic e ID: [id number] Bill able Time: 08:30:00 AM Not Available [facility] 0 17:33:14 Evaluatio n finding Active 2018 Hematuria , unspecifi ed;Record ed Elsewhere : No Locati on: [facility] So urce: EHR Chron ic: N Practic e ID: 0001 Bill able Time: 08:30:00 AM Not Available [facility] 0 17:33:14 Constipat ion [id number] Active 2012 Constipat ion, unspecifi ed;Record ed Elsewhere : No Locati on: [facility] So urce: EHR Chron ic: N Practic e ID: 0001 Bill able Time: 04:15:00 PM Not Available [facility] 0 17:33:14 Microscop ic hematuria [id number] Active 2012 MICROSCOP IC HEMATURIA ;Recorded Elsewhere : No Locati on: [facility] So urce: EHR Chron ic: N Practic e ID: 0001 Bill able Time: 03:45:00 PM Not Available [facility] 0 17:33:14 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 [id number] 025467 Active 2016 Cervical low risk HPV DNA test positive; Recorded Elsewhere : No Locati on: [facility] So urce: EHR Chron ic: N Practic e ID: 0001 Bill able Time: 10:15:00 AM Not Available [facility] 0 17:33:14 Pelvic and perineal pain 354709979 Active 2016 Pelvic and perineal pain;Ronnie rded Elsewhere : No Locati on: [facility] So urce: EHR Chron ic: N Practic e ID: 0001 Bill able Time: 10:30:00 AM Not Available [facility] 0 17:33:14 Screening for malignant neoplasm of rectum Active 2010 Screening for malignant neoplasms of the rectum;Re corded Elsewhere : No Locati on: [facility] So urce: EHR Chron ic: N Practic e ID: [id number] Bill able Time: 01:30:00 PM Not Available [facility] 0 17:33:[address] Concept Active 2016 Encntr for general adult medical exam w/o abnormal findings; Recorded Elsewhere : No Locati on: [facility] So urce: EHR Chron ic: N Practic e ID: 0001 Bill able Time: 10:15:00 AM Not Available [facility] 0 17:33:14 Female genital organ symptoms [id number] Active 2010 Unspecifi ed symptom associate d with female genital organs;Re corded Elsewhere : No Locati on: [facility] So urce: EHR Chron ic: N Practic e ID: 0001 Bill able Time: 01:30:00 PM Not Available [facility] 0 17:33:14 Screening for malignant neoplasm of cervix Active 2012 Screening for malignant neoplasms of the cervix;Re corded Elsewhere : No Locati on: [facility] So urce: EHR Chron ic: N Practic e ID: 0001 Bill able Time: 04:30:00 PM Not Available [facility] 0 17:33:14 Vitamin D deficienc y 26379174 Active 2012 Unspecifi ed vitamin d deficienc y;Recorde d Elsewhere : No Locati on: [facility] So urce: EHR Chron ic: N Practic e ID: 0001 Bill able Time: 03:45:00 PM Not Available [facility] 0 17:33:14 Postmenop ausal bleeding 66494711 Active 2012 Postmenop ausal bleeding; Recorded Elsewhere : No Locati on: [facility] So urce: EHR Chron ic: Y Practic e ID: 0001 Bill able Time: 04:15:00 PM Not Available [facility] 0 17:33:15 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 Osteoporo sis;Recor ded Elsewhere : No Locati on: [facility] So urce: EHR Chron ic: N Practic e ID: 0001 Bill able Time: 04:30:00 PM Not Available [facility] 0 17:33:15 Abnormal cervical Papanicol aou smear [id number] Active 2010 Other abnormal papanicol aou smear of cervix and cervical HPV;Recor ded Elsewhere : No Locati on: [facility] So urce: EHR Chron ic: N Practic e ID: [id number] Bill able Time: 01:30:00 PM Not Available [facility] 0 17:33:15 Urgent desire to urinate [id number] Active 2012 URGENCY OF URINATION ;Recorded Elsewhere : No Locati on: [facility] So urce: EHR Chron ic: N Practic e ID: [id number] Bill able Time: 03:45:00 PM Not Available [facility] 0 17:33:[address] Concept Active 2016 Encounter for general adult medical exam w abnormal findings; Practice ID: [id number] Not Available [facility] 0 17:33:16 Problem Notes None recorded. Procedures Surgical History Date Name Laterality Status Provider Name and Address Organization Details Recorded Time 07/29/20 24 Date of Last Colonoscopy completed Susy Reed [facility] 09/24/2024 09:33:41 07/29/20 24 Colonoscopy completed Susy Reed [facility] 09/24/2024 09:33:20 07/29/20 24 endoscopy completed [facility] 09/24/2024 09:33:29 10/08/20 23 Date of Last Mammogram completed [facility] 09/24/2024 09:31:42 05/23/20 23 Date of Last Pap Smear completed [facility] 09/24/2024 09:31:12 11/18/19 14 Colonoscopy completed [facility] 09/09/2020 15:38:53 11/18/19 01 Breast Biopsy completed [facility] 09/09/2020 15:38:37 11/18/18 97 Breast Biopsy completed [facility] 09/09/2020 15:38:31 11/18/18 96 removal of ovarian cyst completed [facility] 09/09/2020 15:38:16 11/18/18 89 Colposcopy completed [facility] 09/09/2020 15:37:50 11/18/18 89 Dilation and Curettage completed [facility] 09/09/2020 15:38:01 Cholecystectomy completed [facility] 05/10/2022 09:45:00 Imaging Results Imaging Date Name Status LastModified by Organiz [facility]formerly [facility] Details LastModified Time 10/03/2020 MAMMO, screening, bilateral completed [facility] [address], [place], [address], 04/13/2021 21:00:47 05/30/2021 DEXA completed [facility] [address], [place], [address], 06/01/2021 20:19:41 06/14/2022 MAMMO, screening, bilateral completed [email or web address] [address] [facility], [place], [address], 05/27/2023 15:59:40 09/21/2023 DEXA completed [email or web address] [facility] [address], [place], [address], 10/09/2023 14:59:28 10/08/2023 MAMMO, screening, bilateral completed [facility] [address] [place], [address], 10/07/2024 16:06:39 11/04/2024 MAMMO, screening, bilateral completed [facility] [address] [place], [address], 11/20/2024 11:58:04 11/04/2024 MAMMO, screening, bilateral completed [facility] [address] [place], [address], 11/20/2024 11:58:04 11/04/2024 MAMMO, screening, bilateral completed [facility] [address] , [place], [address], 12/10/2024 09:50:51 Procedure Notes None recorded. Medical Equipment None Reported. Allergies No known drug allergies Medications Name Sig Start Date Stop Date Status Note LastModified by Organization Details LastModified Time amoxicill in 500 mg capsule take 1 capsule (500MG) by oral route 3 times every day for 10 days 02/04 completed Prescrib ed Elsewher e: No [facility] By: cmedical Encount er DateTime [...] Prescrib ed Elsewher e: Yes Loca tion: [facility] odify By: bertha ricci DateTime : 08/25/20 13 04:30:00 PM Not Available Not Available Not Available Multiple Vitamin tablet take 1 tablet by oral route every day with food 2011 active Prescrib ed Elsewher e: No Locat ion: [facility] odify By: lea alamo DateTime : 01/23/20 [...] Prescrib ed Elsewher e: Yes Loca tion: [facility] odify By: amkuhstacy Hennessy ncounter DateTime : 12/18/19 19 08:30:00 AM Not Available Not Available Not Available omeprazol e 09/24 completed Not Available Not Available Not Available Vitals Date Recorded Body height Body mass index (BMI) Body weight Systolic blood pressure Diastolic blood pressure Provider Name and Address Organization Details Last Updated DateTime 05/10/2022 160.02 cm 26.9 kg/m2 05351.04 g 165 mm[Hg] 81 mm[Hg] Lyssa Wang [facility] 2 09:43:33 Date Recorded Body height Body mass index (BMI) Body weight Systolic blood pressure Diastolic blood pressure Provider Name and Address Organization Details Last Updated DateTime 05/23/2023 160.02 cm 26.6 kg/m2 51015.86 g 148 mm[Hg] 81 mm[Hg] Lyssa Wang [facility] 3 09:34:01 Date Recorded Body height Body mass index (BMI) Body weight Systolic blood pressure Diastolic blood pressure Systolic blood pressure Diastolic blood pressure Provider Name and Address Organization Details Last Updated DateTime 3 160.02 cm 26.6 kg/m2 47522.8 6 g 169 mm[Hg] 76 mm[Hg] 161 mm[Hg] 79 mm[Hg] Lyssa Wang [facility] 3 11:24:19 Date Recorded Body height Body mass index (BMI) Body weight Systolic blood pressure Diastolic blood pressure Provider Name and Address Organization Details Last Updated DateTime 09/24/2024 160.02 cm 24.8 kg/m2 81138.93 g 166 mm[Hg] 80 mm[Hg] Susy Reed [facility] 4 09:29:53 Date Recorded Body height Body mass index (BMI) Body weight Systolic blood pressure Diastolic blood pressure Systolic blood pressure Diastolic blood pressure Provider Name and Address Organization Details Last Updated DateTime 0 160.02 cm 26.2 kg/m2 95611.6 7 g 150 mm[Hg] 76 mm[Hg] 130 mm[Hg] 70 mm[Hg] Lyssa Wang [facility] 0 09:28:06 Social History Question Answer Notes LastModified by Organizat ion Details LastModified Time Tobacco Smoking Status Never [facility]oker [email or web address] 09/10/2020 09:28:41 In The 14 Days [...] SNOMED-CT Code Diagnosis ICD10 Code Diagnosis Note [id number] Ridge Abdalla MD [facility] [address] [address] 09/10/2020 09:20:31 09/10/2020 13:39:48 Gynecologic examination [id number] Z01.419 This patient is here for her [...] - today Routine gy necologic examination done [id number] 9101 Z01.419 [id number] Ridge Abdalla MD [facility] [address],[place] [address] 05/10/2022 09:09:00 05/10/2022 10:17:02 Gynecologic examination [id number] Z01.419 This patient is here for her [...] Cholestero l - ordered Pap - today [id number] Ridge Abdalla MD [facility] [address],[place] [address] 05/23/2023 09:11:37 05/23/2023 10:08:04 Gynecologic examination [id number] Z01.419 This patient is here for her [...] Cholestero l - ordered Pap - today [id number] Ridge Abdalla MD [facility] [address],[facility] [place] [address] 11/04/2023 11:15:17 11/04/2023 12:10:10 Osteopenia [id number] M85.80 68-year-ol d female with osteopenia . [...] ce. More than 50% was counseling . [id number] Ridge Abdalla MD [facility] [address] [address] 09/24/2024 09:18:01 09/24/2024 10:04:40 Gynecologic examination [id number] Z01.419 This patient is here for her [...] Cook Member ID Guarantor Name 09/10/2020 1 [employer] [id number] Kristin Y Prosper [id number] 1 Kristin Y Prosper 05/10/2022 1 [employer] [id number] Kristin Y Prosper [id number] 1 Kristin Y Prosper 05/23/2023 1 [employer] [id number] Kristin Y Prosper [id number] 1 Kristin Y Prosper 11/04/2023 1 [employer] [id number] Kristin Y Prosper [id number] 1 Kristin Y Prosper 09/24/2024 1 [employer] [id number] Kristin Y Prosper [id number] 1 Kristin Y Prosper Notes Date Note [...] exercise Ridge Abdalla MD [address], [place], [address], [facility] 09/10/2020 09:45:30 05/10/2022 text/html Annual GYNReport ed bypatient.History:n o gynecologic complaints Urinary symptoms:No hematuria; No incontinence Vulva:No genital lesion Vagina:Normal vaginal discharge Breast:No breast pain; No breast lump Sexual complaints:No sexual complaints Menopausal Symptoms:No menopausal symptoms Psychological symptoms:No depression; No anxiety Preventive measures:Encourage self breast examination; Encourage regular exercise Ridge Abdalla MD [address], [place], [address], [facility] 05/10/2022 10:16:51 05/23/2023 text/html [...] exercise Ridge Abdalla MD [address], [place], [address], [facility] 05/23/2023 10:04:10 11/04/2023 text/html [...] problem as well. We spent 20 minutes [id number]. More than 50% was counseling. Ridge Abdalla MD [address], [place], [address], [facility] 11/04/2023 12:04:29 09/24/2024 text/html Annual GYNReport ed bypatient.History:n o gynecologic complaints Urinary symptoms:No hematuria; No incontinence Vulva:No genital lesion Vagina:Normal vaginal discharge Breast:No breast pain; No breast lump Sexual complaints:No sexual complaints Menopausal Symptoms:No menopausal symptoms; Normal vaginal lubrication Psychological symptoms:No depression; No anxiety Preventive measures:Encourage self breast examination; Encourage regular exercise Ridge Abdalla MD [address], [place], [address], [facility] 09/24/2024 10:04:04 OBGyn Episode Ob Episode Information Episode Created Date Number of Fetuses Patient Bloodtype Patient rh Status Prepregnancy Weight lbs Domestic Partner Domestic Partner Phone Father Name Hand Candy Cutter Status 09/09/20 20 1 CLOSED Fetus Data [...]
--- OUTSIDE RECORDS SUMMARY | 2025-04-08 07:01 | XMS_ITS | Referral Summary ---
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
--- OUTSIDE RECORDS SUMMARY | 2025-04-08 07:01 | XMS_ITS | Continuity of Care Document ---
Author Organization [facility] Address [address] [place] [address] [address] [place] [address] Phone Care Team Providers Care Auto Bench Mechanic Name Role Phone Zaria Weller Unavailable Unavailable Procedures Procedure Date Eye Exam, New Patient Advance Directives Directive Yes / No Effective Date File Name No Information Encounters Encounter Description Practice Location Reason(s) For Visit Diagnoses Date Provider Providers Copied on Encounter [facility], [id number] [place] [address] [address], [place], [place], [id number], [place] tel:[phone] [facility] Claire No Information 7-[address] Janee Enciso. [address] , [address], [place], [address], [place]. tel:[phone] Family History Family Member Type Diagnosis Age At Onset No Information Payers Payer name Insurance type Covered republican ID Authoriza tion(s) [place] [id number] Social History Type Description Quantity Date Captured [...]
[2025-04-08 07:32] LABS: Basophils Absolute Auto 0.1 K/mm3 (0.0-0.1); Basophils Percent Auto 0.9 % (0.2-1.2); Eosinophils Absolute Auto 0.2 K/mm3 (0-0.3); Eosinophils Percent Auto 2.5 % (0-4.4); Hematocrit 40.7 % (37.0-47.0); Immature Granulocyte Absolute 0.01 K/mm3 (0.00-0.031); Immature Granulocyte Percent A 0.2 % (0-0.5); Lymphocytes Absolute Auto 2.38 K/mm3 (0.9-3.2); Mean Corpuscular HGB Conc 31.9 g/dl (32-36); Mean Corpuscular Hemoglobin 29.8 pg (26-34); Mean Corpuscular Volume 93.3 fl (80-100); Monocytes Absolute Auto 0.6 K/mm3 (0.1-0.6); Monocytes Percent Auto 8.5 % (2.6-8.5); Neutrophils Absolute Auto 3.3 K/mm3 (1.3-6.7); Neutrophils Percent Auto 50.9 % (45.5-73.1); Platelet Count Result 386 k/mm3 (150-375); Red Blood Count 4.36 M/mm3 (4.2-5.4); Red Cell Distribution Width 13.2 % (11.5-14.5); White Blood Count 6.4 K/mm3 (4.5-10.0)
== END 2025-04-08 06:58 | disposition home or self-care (01) ==
LOC: ANHLAB 06:59
PROVIDERS: PCP Family Medicine Adolescent Medicine; Visit Provider Nurse Practitioner Family
DX: D75.839 Thrombocytosis, unspecified (principal)
CPT/HCPCS: 36415; 82728; 85025

== ENCOUNTER 2025-05-03 17:13 | Emergency (ER) | payer OTHER, MEDICARE, SELFPAY ==
[2025-05-03 17:25] VITALS: BP 158/74; PULSE 74; RESP 16; TEMP 36.7; O2SAT 99
--- NOTE | 2025-05-03 17:25 | ED_ITS ---
HPI - URI/Sore Throat General Chief Complaint: Upper Respiratory Infection Stated Complaint: Sinus/Sore Throat Source: patient Mode of arrival: ambulatory Limitations: no limitations History of Present Illness HPI Narrative: Patient is a 70-year-old female who presents to the clinic with complaints of a sore throat and nasal congestion for 4 days. She has tried a one time dose of an antihistamine over the counter and had some relief. Denies any shortness of breath, difficulty swallowing, nausea, fevers, diarrhea, or vomiting. Related Data Home Medications ?Medication ?Instructions ?Recorded ?Confirmed ?Last Taken ?Type multivitamin 1 tablet PO .TIW 04/07/24 03/24/25 Unknown History Allergies Allergy/AdvReac Type Severity Reaction Status Date / Time No Known Allergies Allergy Mild Verified 05/03/25 17:26 Review of Systems Review of Systems: CONSTITUTIONAL: Denies body aches, fever, chills, or sweats. EYES: Denies visual changes, redness, or discharge. ENT: Reports sore throat. Denies rhinorrhea, congestion, or otalgia. CARDIOVASCULAR: Denies chest pain, palpitations, or edema. RESPIRATORY: Denies dyspnea. GASTROINTESTINAL: Denies abdominal pain, nausea, vomiting, or diarrhea. SKIN: Denies rash NEUROLOGIC: Denies headache All systems reviewed & are unremarkable except as noted in HPI and below PMFSH Past Medical History Medical History Osteopenia Irritable bowel syndrome Gastroesophageal reflux disease Surgical History Surgical History History of dilation and curettage Hx of cholecystectomy Family History Family History Mother Family history of pancreatic cancer Heart problem Father Family history of lung cancer Alcoholism Other Diabetes mellitus Hypertension Heart problem Grandparent Breast cancer Grandparent Cerebrovascular accident Social History Social History Social History: caffeine use Smoking status: Never smoker Alcohol intake: never Alcohol use details: States she drinks wine very seldom Substance use: never Substance use type: does not use Living arrangements: alone Occupation/Education: occupation 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 Please see nursing chart for further information. There is no relevant family history pertinent to the presenting complaint. Exam Narrative: GENERAL: Ill-appearing, ?no acute distress. EYES: ?conjunctivae clear ENT: Mucous membranes moist. TM pearly wesley with normal light reflex bilaterally; no tragal tenderness. Oropharynx erythematous without lesions. Tonsils enlarged and without exudate. No drooling, no hoarseness, no trismus, uvula midline. No tripod positioning, hot potato voice, or soft palate swelling. NECK: Supple. No lymphadenopathy CHEST: Clear to auscultation, breath sounds equal. ?No respiratory distress, speaks in full sentences. HEART: Regular rate and rhythm. No murmur heard. SKIN: Warm, dry, no rash. NEURO: Alert and oriented x3.? Course Course Level of Care: Express Care Visit MDM - URI/Sore Throat MDM Narrative Medical decision making narrative: Discussed physical exam findings. Patient's symptoms likely viral. Discussed supportive measures such as antihistamine and flonase, as well as signs/symptoms to go to the ER. Pt is appropriate for outpatient treatment and follow up. Differential Diagnosis Differential diagnosis: Likely upper respiratory infection, sinusitis, viral infection and pharyngitis Critical Care Time Critical Care Time Critical Care Time: No Discharge Plan Discharge Clinical Impression: Upper respiratory infection Qualifiers: URI type: unspecified URI Qualified Code(s): J06.9 - Acute upper respiratory infection, unspecified Patient Disposition: Home Condition: Stable Instructions: Upper Respiratory Infection (DC) Additional Instructions: Take Tessalon Perles as prescribed. Recommend Flonase spray and Zyrtec (or Claritin/Cecelia) Tylenol every 8 hours as needed for pain Symptomatic treatment includes: rest, fluids, and increase humidity of the air at home. Follow up with your primary care provider in 1 week. Go to the ER for worsening symptoms or concerns. Patient Language: Fijian Prescriptions: New benzonatate 200 mg capsule 200 mg PO BID PRN (Reason: cough) Qty: 20 0RF No Action multivitamin Tablet 1 tablet PO .TIW Follow-up/Referrals: Jose Angel Atkinson MD [Primary Care Provider] - Time of Disposition: 17:39
[2025-05-03 17:33] LABS: EDSTREPNEGPOS1 Negative (Negative)
== END 2025-05-03 17:47 | disposition home or self-care (01) ==
PROVIDERS: PCP Family Medicine Adolescent Medicine
DX: J06.9 Acute upper respiratory infection, unspecified (principal); M85.80 Other specified disorders of bone density and structure, unspecified site; K21.9 Gastro-esophageal reflux disease without esophagitis
CPT/HCPCS: 87081; 87880; 99213; G0463

== ENCOUNTER 2025-08-20 05:20 | Inpatient (IN) | payer OTHER, MEDICARE, SELFPAY ==
[2025-08-20] VITALS (11 sets, daily range): BP systolic 144–178; BP diastolic 64–76; PULSE 75–104; RESP 14–20; TEMP 36.6–36.9; O2SAT 97–100; BMI 23.6
--- NOTE | 2025-08-20 | ECHO_ITS ---
Patient Info Name: Kristin Cheng Age: 70 years : 1955 Gender: Female Ht: 66 in Wt: 146 lbs BSA: 1.76 m2 HR: 75 bpm BP: 158 / 65 mmHg Technical Quality: Good Exam Date: 08/20/2025 3:37 PM Patient Status: I Admit Date: 08/20/2025 Exam Type: CA echo doppler color flow Complete two-dimensional, color flow and Doppler transthoracic echocardiogram is performed. Staff Referring Physician: Galina Arenas Customer Quality Specialist: Ladan Skaggs Attending Provider: Linda Kumar Summary 1. Complete two-dimensional, color flow and Doppler transthoracic echocardiogram is performed. 2. Left ventricular chamber dimension is normal. 3. Left ventricular systolic function is normal, estimated at 65-70. 4. The left ventricular diastolic function is grade I diastolic dysfunction. 5. E/e' 12 is mildly elevated. Left Ventricle E/e' 12 is mildly elevated. Left ventricular chamber dimension is normal. Left ventricular systolic function is normal, estimated at 65-70. The left ventricular diastolic function is grade I diastolic dysfunction. Right Ventricle Right ventricular chamber dimension is normal. Right ventricular systolic function is normal and with normal TAPSE 2.2 cm. Left Atria Left atrial chamber dimension is normal. Right Atria Right atrial chamber dimension is normal. Aortic Valve The aortic valve is not well visualized. Cannot determine number of aortic valve leaflets. There is no aortic valve stenosis. There is no aortic valve regurgitation. Pulmonic Valve There is no pulmonic regurgitation. Mitral Valve There is no mitral valve stenosis. There is no mitral valve regurgitation. Tricuspid Valve There is no tricuspid valve regurgitation. Pericardium/Pleural There is no pericardial effusion. Inferior Vena Cava Normal inferior vena cava with >50% collapse upon inspiration consistent with normal right atrial pressure, 5 mmHg. Aorta The aortic root size at the sinus of Valsalva is normal. Left Ventricular Outflow Tract Name Value Normal LVOT 2D LVOT Diameter 2.0 cm LVOT Doppler LVOT Peak Velocity 157 cm/s LVOT Peak Gradient 10 mmHg LVOT Mean Gradient 5 mmHg LVOT VTI 37 cm LVOT Stroke Volume 119 ml LVOT CO 8.9 l/min LVOT CI 5.0 l/min/m2 Pulmonic Valve Name Value Normal RVOT Doppler RVOT Peak Velocity 138 cm/s RVOT Peak Gradient 8 mmHg PV Doppler PV Peak Velocity 155 cm/s PV Peak Gradient 10 mmHg Mitral Valve Name Value Normal MV Diastolic Function MV E Peak Velocity 87 cm/s MV A Peak Velocity 105 cm/s MV E/A 0.8 MV Decel Time (PW) 269 ms MV Annular TDI MV E/e' (Septal) 12.9 MV E/e' (Lateral) 12.0 MV E/e' (Average) 12.5 Tricuspid Valve Name Value Normal Estimated PAP/RSVP RA Pressure 5 mmHg <=5 Aortic Valve Name Value Normal AV Doppler AV Peak Velocity 183 cm/s AV Peak Gradient 13 mmHg AV Area (Cont Eq Sina) 2.8 cm2 AV DI (Sina) 0.86 AV Regurgitation 2D LVOT Area 3.2 cm2 Ventricles Name Value Normal LV Dimensions 2D/MM IVS Diastolic Thickness (2D) 0.9 cm 0.6-1.0 LVID Diastole (2D) 3.5 cm 3.8-5.2 LVIW Diastolic Thickness (2D) 1.5 cm 0.6-0.9 LVID Systole (2D) 1.9 cm 2.2-3.5 LVOT Diameter 2.0 cm LV Mass (2D Cubed) 136.40 g 67.00-162.00 LV Mass Index (2D Cubed) 77 g/m2 43-95 Relative Wall Thickness (2D) 0.87 <=0.42 LV Fractional Shortening/Ejection Fraction 2D/MM LV Fractional Shortening (2D) 46 % 27-45 LV EF (2D Teichholz) 78 % LV Diastolic Volume (4C MOD) 74 ml LV EF (4C MOD) 67 % LV Diastolic Volume (2C MOD) 63 ml LV EF (2C MOD) 65 % LV Diastolic Volume (BP MOD) 68 ml 46-106 LV Diastolic Volume Index (BP MOD) 39 ml/m2 29-61 LV Systolic Volume (BP MOD) 24 ml 14-42 LV Systolic Volume Index (BP MOD) 14 ml/m2 8-24 LV EF (BP MOD) 65 % 54-74 LV Diastolic Length (4C) 7.2 cm LV Systolic Length (4C) 6.0 cm LV Stroke Volume (4C MOD) 50 ml Atria Name Value Normal LA Dimensions LA Volume (4C A-L) 39 ml LA Volume (BP A-L) 39 ml RA Dimensions RA Area (4C) 13.3 cm2 <=18.0 Report Signatures
--- NOTE | ~2025-08-20 | XR_ITS ---
Examination: XR chest 1V portable Clinical History: stroke s/s Comparison: None Technique: Portable AP Findings: Heart size normal. Lungs clear. No acute bony abnormality. IMPRESSION: 1. No acute cardiopulmonary findings given portable technique. Reviewed, dictated and finalized at location R.
--- NOTE | ~2025-08-20 | CT_ITS ---
EXAMINATION: CTA brain carotid DATE: 08/20/2025 06:23 INDICATION: Stroke. TECHNIQUE: Computed tomographic angiography (CTA) of the head was performed without and with 100 mL Omnipaque-350 intravenous contrast. CTA of the neck was performed with intravenous contrast. Automated exposure control and iterative reconstruction technique were employed. The dose-length product was 1643.43 mGy- cm. Maximum intensity projection and volume rendered 3D-reconstructions were created by the technologist on a separate workstation. COMPARISON: None. FINDINGS: HEAD CTA: There is an infarct in the right basal ganglia. There are scattered areas of low attenuation in the cerebral white matter, which is within normal limits for the patient's age. There is no intracranial hemorrhage or abnormal mass lesion. The ventricles are normal in size. There is mild mucosal thickening in the paranasal sinuses. The orbits are normal. The mastoid air cells are normal. Right vertebral artery is dominant. There is no significant stenosis of basilar artery or the posterior cerebral arteries. There is no significant stenosis of the intracranial internal carotid arteries or anterior or middle cerebral arteries. Anterior communicating artery is normal. The posterior communicating arteries are normal. There is no aneurysm. NECK CTA: There is mild scarring at the lung apices. There are no pathologically enlarged lymph nodes. There is no significant stenosis of the vertebral arteries. There is plaque in the proximal internal carotid arteries. There is 9% stenosis of the proximal right internal carotid artery relative to normal distal artery lumen diameter (NASCET criteria). There is 0% stenosis of the proximal left internal carotid artery relative to normal distal artery lumen diameter. There is severe cervical spondylosis. IMPRESSION: 1. Age-indeterminate infarct in the right basal ganglia. 2. No aneurysm or significant intracranial arterial stenosis. 3. 9% stenosis of the proximal right internal carotid artery relative to normal distal artery lumen diameter (NASCET criteria). 4. 0% stenosis of the proximal left internal carotid artery relative to normal distal artery lumen diameter. Reviewed, dictated and finalized at location E.
--- NOTE | ~2025-08-20 | CT_ITS ---
EXAMINATION: CT brain wo lai, 08/22/2025 15:15 CDT HISTORY: worsening left sided weakness COMPARISON: No comparisons available. Technique: Axial images obtained of the brain without contrast. One or more of the following dose reduction techniques were used: automated exposure control, adjustment of the mA and/or kV according to patient size, use of iterative reconstruction technique. Findings: There is a acute appearing right basal ganglia infarct. No acute hemorrhage, midline shift or mass effect. No extra-axial fluid collections. Mastoid air cells unremarkable. Sinuses and orbits unremarkable. No acute fracture. No significant facial or scalp soft tissue swelling evident. No radiopaque foreign body is seen. Impression: Acute right basal ganglia infarct. No hemorrhage. MRI is recommended to further evaluate Reviewed, dictated and finalized at location P. Impression: Acute right basal ganglia infarct. No hemorrhage. MRI is recommended to further evaluate
--- NOTE | ~2025-08-20 | XR_ITS ---
EXAMINATION: XR hip LT 2V w AP pelvis DATE: 08/25/2025 10:55 INDICATION: Fall. TECHNIQUE: 3 images of the left hip were obtained. COMPARISON: None. FINDINGS: Extensive and projects over the lumbar spine and pelvis which limits evaluation. There is bowel gas and stool projecting over the pelvis which limits evaluation. There are a few less than 1.0 cm calcifications projecting over the pelvis which may represent phleboliths, however, a distal ureteral stone or bladder stone or possible. Mild degenerative change in the hips. No fracture. No dislocation. IMPRESSION: 1. No fracture or dislocation identified. If symptoms persist or worsen, consider a short-term follow-up study or additional imaging for further assessment. Reviewed, dictated and finalized at location Q. IMPRESSION: 1. No fracture or dislocation identified. If symptoms persist or worsen, consider a short-term follow-up study or additio nal imaging for further assessment.
--- NOTE | ~2025-08-20 | MR_ITS ---
EXAMINATION: MR brain/brain stem wo/w con DATE: 08/21/2025 09:46 INDICATION: Cerebrovascular accident. TECHNIQUE: Magnetic resonance imaging (MRI) of the brain and brainstem was performed without and with 13 mL MultiHance intravenous contrast. COMPARISON: Head CT 08/20/2025 FINDINGS: There is an acute infarct involving the right basal ganglia and posterior limb right internal capsule. There are scattered areas of nonspecific increased T2-weighted signal intensity in the cerebral white matter, which is within normal limits for the patient's age. There is no intracranial hemorrhage or abnormal mass lesion. The ventricles are normal in size. The orbits are normal. The mastoid air cells are normal. The paranasal sinuses are clear. IMPRESSION: 1. Acute infarct involving the right basal ganglia and posterior limb right internal capsule. Reviewed, dictated and finalized at location E. IMPRESSION: 1. Acute infarct involving the right basal ganglia and posterior limb right int ernal capsule.
--- NOTE | ~2025-08-20 | XR_ITS ---
EXAMINATION: XR lumbar spine 2-3V DATE: 08/25/2025 10:55 INDICATION: Fall TECHNIQUE: 3 images of the lumbar spine were obtained. COMPARISON: None. FINDINGS: There is bowel gas and stool projecting over the pelvis which limits evaluation. [ There are a few less than 1.0 cm calcifications projecting over the pelvis which may represent phleboliths, however, a distal ureteral stone or bladder stone or possible. Mild levoconvex curvature of the lumbar spine. No compression fracture in the lumbar spine. Severe joint space narrowing at the L5-S1 level. Moderate degenerative change in the lower lumbar facet joints. Bones appear osteopenic. IMPRESSION: 1. No compression fracture in the lumbar spine. 2. Severe joint space narrowing at the L5-S1 level. If symptoms persist or worsen, consider a short-term follow-up study or CT/MRI imaging for further assessment. Reviewed, dictated and finalized at location Q.
--- NOTE | 2025-08-20 05:28 | ECG_ITS ---
Test Date: 2025-08-20 05:34:49 Measurements Intervals [place] Rate: 84 P: 55 MT: 148 QRS: 43 QRSD: 81 T: 57 QT: 368 QTc: 437 Interpretive Statements SINUS RHYTHM BASELINE ARTIFACT- I, III, AVR, AVL, AVF, V2, V5 NORMAL ECG No previous ECG available for comparison Electronically Signed On 08-20-2025 06:23:08 CDT by Nico Andres D.O.
[2025-08-20 05:36] LABS: Hematocrit 40.4 % (37.0-47.0); Hemoglobin 13.3 g/dL (12.0-15.0); Immature Granulocyte Percent A 0.4 % (0-0.5); Lymphocytes Absolute Auto 1.82 K/mm3 (0.9-3.2); Mean Corpuscular HGB Conc 32.9 g/dl (32-36); Mean Corpuscular Hemoglobin 29.6 pg (26-34); Mean Corpuscular Volume 90.0 fl (80-100); Nucleated Red Blood Cells Absolute Auto 0.000 K/mm3 (0.0-0.012); Nucleated Red Blood Cells Perc 0.0 % (0.0-0.2); Platelet Count Result 451 k/mm3 (150-375); Red Blood Count 4.49 M/mm3 (4.2-5.4); White Blood Count 13.2 K/mm3 (4.5-10.0)
--- NOTE | 2025-08-20 05:42 | ED.NEUROSD ---
HPI - Neuro Symptoms/Deficit General Chief Complaint: Neuro Symptoms/Deficit Stated Complaint: cva symptoms Time Seen by Provider: 08/20/25 05:27 Source: patient and family (Boyfriend, son) Mode of arrival: ambulatory History of Present Illness HPI Narrative: Patient presents concern that she has had a stroke. Her last known well was at 11:00 a.m. on 08/19/2025. There had been a fire drill at her work and she walked down 11 flights stairs. After this she felt lightheaded her legs felt rubbery. This occurred bilaterally. After she rested for some time however, her right leg improve her left leg continued to feel strangely. She feels like it is weaker than the right and in addition her left arm felt weak. Family was concerned about facial droop. No mental status changes. No history stroke; not on anticoagulation. Related Data Home Medications ?Medication ?Instructions ?Recorded ?Confirmed ?Last Taken ?Type multivitamin 1 tablet PO .TIW 04/07/24 08/20/25 Unknown History alendronate 35 mg tablet 35 mg PO WEEKLY 08/20/25 08/20/25 08/08/25 History omeprazole 20 mg capsule,delayed 20 mg PO DAILY 08/20/25 08/20/25 08/19/25 History release Allergies Allergy/AdvReac Type Severity Reaction Status Date / Time No Known Allergies Allergy Mild Verified 08/20/25 11:22 [facility] Past Medical History Medical History Osteopenia Irritable bowel syndrome Gastroesophageal reflux disease Surgical History Surgical History History of dilation and curettage Hx of cholecystectomy Family History Family History Mother Family history of pancreatic cancer Heart problem Father Family history of lung cancer Alcoholism Other Diabetes mellitus Hypertension Heart problem Grandparent Breast cancer Grandparent Cerebrovascular accident Social History Social History Social History: caffeine use Smoking status: Never smoker Alcohol intake: current Drinks per week: 0 Alcohol use details: States she drinks wine very seldom Substance use: never Substance use type: does not use Other substance usage details: glass of wine on occasion Lack of Transportation: No Lack of Food: Never True Current Housing: I Have Housing Concerned About Future Housing: No Difficulty Paying Gas/Electric Bills: No Difficulty Paying for Meds: No Currently Unemployed: No Education: High School Diploma/GED Difficulty w/ Childcare or Family Care: No Living arrangements: alone Occupation/Education: occupation 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 HEAD: Normocephalic, atraumatic. EYES: Non injected, non icteric. Extraocular movements intact horizontally without nystagmus or gaze palsy. No visual field defect. ENT: Nares clear, no rhinorrhea or epistaxis. Gross auditory acuity intact. NECK: Supple. No meningismus. CHEST: Speaking in full sentences. No respiratory distress. HEART: Regular rate and rhythm. . ABDOMEN: Soft, nondistended. EXTREMITIES: Normal range of motion. No lower extremity edema. SKIN: Warm, dry, no rash. NEURO: No focal deficits. Alert and oriented. Answering questions. Following commands. Normal speech without aphasia or dysarthria. Ataxia on [id number] on the left as well as heel gastelum assessment on the left. No ataxia on the right. No extinction. Patient is able to lift left arm and leg fully off the bed. There is mild drift in both these limbs although does not drop back to the bed. No abnormalities on the right. PSYCH: Normal mood and affect. Course Vital Signs Vital signs: Vital Signs Temperature 97.8 F 08/20/25 05:28 Pulse Rate 93 08/20/25 05:28 Respiratory Rate 18 08/20/25 05:28 Blood Pressure 177/74 H 08/20/25 05:28 Pulse Oximetry 99 08/20/25 05:28 Oxygen Delivery Room Air 08/20/25 05:28 Temperature 98.5 F 08/20/25 14:00 Pulse Rate 75 08/20/25 14:00 Respiratory Rate 18 08/20/25 14:00 Blood Pressure 158/65 H 08/20/25 14:00 Pulse Oximetry 98 08/20/25 14:00 Oxygen Delivery Room Air 08/20/25 05:28 MDM - Neuro Symptoms/Deficit MDM Narrative Medical decision making narrative: This is a 70 year old female who presents to the emergency department with concern for possible stroke. Last known well is yesterday, 08/19/25 at 11am thus outside of the 4.5 hour window , not quite at 24 hour. The patient is protecting their airway which is patent. In the emergency department she is afebrile with vital signs notable for hypertension. An IV is established by nursing staff blood work sent to the lab for evaluation. An EKG will be performed. Accu-Chek was 135md/dL. NIHSS was evaluated per below. The patient was transported to CT scan l for evaluation of acute intracranial bleed. NIHSS Level Of consciousness:0 Month and age:0 Follows [id number]:0 Gaze palsy:0 Visual arnett:0 Facial palsy:0 Left arm motor drift:1 Right arm motor drift:0 Left leg motor drift:1 Right leg motor drift:0 Limb ataxia:1 Sensation: 0 Aphasia:0 Dysarthria:0 Extinction:0 Total: 3 DIFFERENTIAL DIAGNOSES Patient's deficits seem consistent with a stroke. Considered Stroke (CVA / TIA) mimics including but not limited to: migraines, hypoglycemia, seizures/Reggie's paralysis, sepsis/severe infections in patients with prior strokes (e.g. recrudescence), syncope, brain masses, transient global amnesia, panic attack/hyperventilation, and conversion disorders. CT shows: age indeterminant right basal ganglia infarct. No large vessel occlusion or significant carotid stenosis. Labs: she has a leukocytosis and thrombocytosis (the latter is chronic). Troponin within normal limits. Given patient is outside of thrombolytics, will initiate aspirin. As this is a nonhemorrhagic stroke,a statin should be added to patient's regimen. Lipid panel and HA1c are ordered for risk stratification. Discussed patient with livestock nutritionist hospitalist Dr Kumar. It is noted that neurology is not livestock nutritionist today or tomorrow. FOr this reason, although reasonable to admit for standard stroke work up, he did advise I consult neurology/a tertiary care stroke team. Shared decision making with the patient. She agrees with consultation with [facility], likely admitted here but amenable to transfer if deemed a possibility. Discussed with [facility] / [facility]: Dr Jarquin stroke team/neurologist at 09:23am. Confirms that admitting here is reasonable, no need for tertiary care. Nothing differently would be offered/proposed. Agreed with aspirin and risk factor modification. MRI ordered as is PT/OT for evaluation. Patient and boyfriend and son have several questions. Answered to the best of my ability and advised to discuss further prognoses and assessments with the rest of her inpatient care team. Verifies understanding. Has been hemodynamially stable. Patient does not need a bedside swallow test on my assessment thus no need for NPO. Patient will require admission with workup to possibly include echo, and cardiac monitoring. Goal is to maintain normotension/permissive hypertension as well as euglycemia. Lab Data Attestation: I reviewed the patient's lab results. Lab results narrative: Normal renal function 08/20/25 05:31 08/20/25 05:31 Labs: Lab Results 08/20/25 08/20/25 08/20/25 Range/Units 05:25 05:31 06:38 WBC 13.2 H (4.5-10.0) K/mm3 RBC 4.49 (4.2-5.4) M/mm3 Hgb 13.3 (12.0-15.0) g/dL Hct 40.4 (37.0-47.0) % MCV 90.0 (80-100) fl MCH 29.6 (26-34) pg MCHC 32.9 (32-36) g/dl RDW 13.2 (11.5-14.5) % Plt Count 451 H (150-375) k/mm3 MPV 8.8 (7.4-10.4) fl Immature Gran % (Auto) 0.4 (0-0.5) % Neut % (Auto) 79.7 H (45.5-73.1) % Lymph % (Auto) 13.8 L (18.3-44.2) % [place] % (Auto) 5.7 (2.6-8.5) % Eos % (Auto) 0.1 (0-4.4) % Baso % (Auto) 0.3 (0.2-1.2) % Lymph # (Auto) 1.82 (0.9-3.2) K/mm3 [place] # (Auto) 0.8 H (0.1-0.6) K/mm3 Eos # (Auto) 0.0 (0-0.3) K/mm3 Baso # (Auto) 0.0 (0.0-0.1) K/mm3 Abs Immat Gran (auto) 0.05 H (0.00-0.031) K/mm3 Absolute Neuts (auto) 10.5 H (1.3-6.7) K/mm3 Absolute Nucleated RBC 0.000 (0.0-0.012) K/mm3 Nucleated RBC % 0.0 (0.0-0.2) % PT 12.8 (11.1-14.7) Seconds INR 1.0 APTT 25.6 (22.3-36.8) Seconds Sodium 139 (137-145) mmol/L Potassium 4.1 (3.4-5.0) mmol/L Chloride 103 (98-107) mmol/L Carbon Dioxide 25 (22-30) mmol/L Anion Gap 11 (4-12) mmol/L BUN 15 (7-17) mg/dL Creatinine 0.57 L (0.7-1.0) mg/dL Estim Creat Clear Calc 73 ml/min Estimated GFR > 60 (59 - ) Glucose 135 H (65-110) mg/dL POC Capillary Glucose 135 H (65-105) mg/dl Hemoglobin A1c 5.3 (<5.7) % Calcium 9.6 (8.4-10.2) mg/dL Total Bilirubin 0.6 (0.2-1.3) mg/dL AST 30 (14-36) U/L ALT 23 (6-35) U/L Alkaline Phosphatase 58 (38-126) U/L Total Creatine Kinase 68 (30-135) U/L Troponin I < 0.012 (0.000-0.034) ng/mL Total Protein 8.0 (6.3-8.2) g/dL Albumin 4.8 (3.5-5.1) g/dL Triglycerides 91 (<150) mg/dL Cholesterol 219 H (0-200) mg/dL LDL Cholesterol Direct 123 mg/dL HDL Direct 64 mg/dL Urine Color Yellow (Yellow) Urine Appearance Clear (Clear) Urine pH 7.0 (5.0-9.0) Ur Specific [place] 1.020 (1.001-1.035) Urine Protein Negative (Negative) mg/dL Urine Glucose (UA) Negative (Negative) mg/dL Urine Ketones Negative (Negative) mg/dL Ur Blood (Man) Negative (Negative) Urine Nitrate Negative (Negative) Urine Bilirubin Negative (Negative) Urine Urobilinogen 0.2 (<2.0) mg/dL Leukocyte Esterase Rfl Negative (Negative) GISELLE/UL Urine Opiates Screen Negative (Negative) Urine Methadone Screen Negative (Negative) Ur Barbiturates Screen Negative (Negative) Ur Phencyclidine Scrn Negative (Negative) Ur Amphetamine Screen Negative (Negative) U Benzodiazepines Scrn Negative (Negative) Urine Cocaine Screen Negative (Negative) U Cannabinoids Screen Negative (Negative) Imaging Data Attestation: I personally reviewed and interpreted this imaging study as follows: My impression: Mildly hazy on the right diffusely thus suspect rotational effect rather than pathology on my independent interpretation of CXR Radiologist's impression: Impressions Chest X-Ray 08/20/25 06:48 IMPRESSION: 1. No acute cardiopulmonary findings given portable technique. Head/Neck CTA 08/20/25 07:32 IMPRESSION: 1. Age-indeterminate infarct in the right basal ganglia. 2. No aneurysm or significant intracranial arterial stenosis. 3. 9% stenosis of the proximal right internal carotid artery relative to normal distal artery lumen diameter (NASCET criteria). 4. 0% stenosis of the proximal left internal carotid artery relative to normal distal artery lumen diameter. ECG Data EKG #1: Attestation: I personally reviewed and interpreted this ECG as follows: ECG completion date: 08/20/25 ECG completion time: 05:34 Interpretation: Normal sinus rhythm at a rate of 84 beats per minute. OK interval 148. QRS 81. QT/ QTC 368/410. Good R-wave progression across the precordial leads. Normal axis. No T-wave inversions. Normal ECG. Discharge Plan Discharge Clinical Impression: Acute CVA (cerebrovascular accident), Leukocytosis, Thrombocytosis, Basal ganglia infarction Patient Disposition: Still a Patient Condition: Stable
[2025-08-20 05:46] LABS: INR 1.0; Prothrombin Time 12.8 Seconds (11.1-14.7)
[2025-08-20 05:47] LABS: Partial Thromboplastin Time 25.6 Seconds (22.3-36.8)
[2025-08-20 05:53] LABS: Alanine Aminotransferase 23 U/L (6-35); Albumin Level 4.8 g/dL (3.5-5.1); Alkaline Phosphatase 58 U/L (38-126); Anion Gap 11 mmol/L (4-12); Aspartate Amino Transferase 30 U/L (14-36); Bilirubin,Total 0.6 mg/dL (0.2-1.3); Blood Urea Nitrogen 15 mg/dL (7-17); Calcium 9.6 mg/dL (8.4-10.2); Carbon Dioxide 25 mmol/L (22-30); Chloride 103 mmol/L (98-107); Estimated CRCL calculation 73 ml/min; Estimated Glomerular Filt Rate > 60; Glucose 135 mg/dL (65-110); Potassium 4.1 mmol/L (3.4-5.0); Sodium 139 mmol/L (137-145); Total Protein 8.0 g/dL (6.3-8.2)
[2025-08-20 06:03] LABS: Creatine Kinase 68 U/L (30-135)
[2025-08-20 06:22] LABS: Troponin I < 0.012 ng/mL (0.000-0.034)
[2025-08-20 06:45] LABS: Add Urine Microscopic? NO; Appearance Urine Clear (Clear); Glucose Urine UA Negative (Negative); Leukocyte Esterase Ur Negative LEU/UL (Negative); Nitrate Urine Negative (Negative); Specific Grav Ur 1.020 (1.001-1.035)
[2025-08-20 07:10] LABS: Cannabinoid Screen Urine Negative (Negative)
[2025-08-20 09:07] LABS: Cholesterol 219 mg/dL (0-200); HDL Direct 64 mg/dL; Triglycerides 91 mg/dL (<150)
[2025-08-20] MEDS: ASPIRIN 81 MG CHEWABLE TABLET 324 MG PO (09:45)
[2025-08-20 09:48] LABS: Hemoglobin A1C 5.3 % (<5.7)
--- NOTE | 2025-08-20 11:10 | ADMGEN ---
This patient, Kristin Cheng, was admitted to [facility] Surg Room 332-02. Patient/family oriented to hospital policies and general routines including ID bracelet, bed and alarms, visiting hours, pain management, procedures, bathroom and other care routines, personal items, smoking policy, room service/diet, and visiting hours. Information on how to activate the Rapid Response Team has been discussed. Patient/Family are encouraged to report perceived risks to care and to ask questions if they do not understand what they are told or what they should do.
--- NOTE | 2025-08-20 14:46 | P.HP_ITS ---
H&P: HPI History of Present Illness Date/Time: 08/20/25 14:46 Chief Complaint: Left sided weakness Narrative: 70 yo male with PMH of IBS, GERD and Osteopenia who presented to the ER with left sided weakness. Patient reported about 630pm yesterday she started having left sided weakness, but thought it would get better however last night when she woke up to use the bathroom she noticed it has worsened prompting her to present to the ER for proper eval adn care. Denies any chest pain, abd pain, vomiting, diarrhea, dysuria. ER eval notable HR 104, RR 18, BP 178/75, saturating 98% on room air Labs notable LDL 123, HDL 64, a1c 5.3, WBC 13.2 CXR and CTA head and neck unremarkable patient presented outside the tPA window Review of Systems Review of Systems: All other systems were reviewed and negative except as noted in the HPI above [facility] Past Medical History Medical History Osteopenia Irritable bowel syndrome Gastroesophageal reflux disease Surgical History Surgical History History of dilation and curettage Hx of cholecystectomy Family History Family History Mother Family history of pancreatic cancer Heart problem Father Family history of lung cancer Alcoholism Other Diabetes mellitus Hypertension Heart problem Grandparent Breast cancer Grandparent Cerebrovascular accident Social History Social History Social History: caffeine use Smoking status: Never smoker Alcohol intake: current Drinks per week: 0 Alcohol use details: States she drinks wine very seldom Substance use: never Substance use type: does not use Other substance usage details: glass of wine on occasion Lack of Transportation: No Lack of Food: Never True Current Housing: I Have Housing Concerned About Future Housing: No Difficulty Paying Gas/Electric Bills: No Difficulty Paying for Meds: No Currently Unemployed: No Education: High School Diploma/GED Difficulty w/ Childcare or Family Care: No Living arrangements: alone Occupation/Education: occupation 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 Gender identity (if verbalized by the patient): Female Spiritual care concerns: No Meds Home Medications and Allergies Home Medications ?Medication ?Instructions ?Recorded ?Confirmed ?Type multivitamin 1 tablet PO .TIW 04/07/24 History alendronate 35 mg tablet 35 mg PO WEEKLY 08/20/2502/09 History omeprazole 20 mg capsule,delayed 20 mg PO DAILY 08/20/25 History release Allergies Allergy/AdvReac Type Severity Reaction Status Date / Time No Known Allergies Allergy Mild Verified 08/20/25 11:22 Vital Signs Vital Signs - 24 hr 08/20/25 05:28 08/20/25 05:28 08/20/25 05:36 Temperature 97.8 F Pulse Rate 93 104 H 99 Respiratory Rate 18 18 18 Blood Pressure 177/74 H 178/75 H 177/74 H Pulse Oximetry 99 100 100 Oxygen Delivery Room Air 08/20/25 06:55 08/20/25 07:33 08/20/25 09:20 Temperature Pulse Rate 88 86 Respiratory Rate 17 17 Blood Pressure 163/72 H 146/65 H Pulse Oximetry 97 97 98 Oxygen Delivery 08/20/25 09:33 08/20/25 10:36 Temperature Pulse Rate 85 77 Respiratory Rate 14 15 Blood Pressure 150/67 H 144/64 H Pulse Oximetry 98 98 Oxygen Delivery Exam Narrative: General: alert and comfortable Eyes: EOMI, PERRLA ENNT External ears normal, Neck is supple, no masses, Respiratory systems: Clear to auscultation Cardiovascular S1, S2, normal rhythm, no murmur, rub, or gallop; no thrill or palpable murmurs on palpation. Gastrointestinal: soft, non-tender, and non-distended abdomen with no masses; BS present Skin: no rash, lesions, ulcerations, subcutaneous nodules or induration Musculoskeletal: no abnormality and no tenderness, normal ROM Neurologic: Alert and oriented x3, power 4/5 left sided, left facial droop. Mental Status Exam: normal affect H&P: Results Labs Labs: Short CBC 08/20/25 Range/Units 05:31 WBC 13.2 H (4.5-10.0) K/mm3 Hgb 13.3 (12.0-15.0) g/dL Hct 40.4 (37.0-47.0) % Plt Count 451 H (150-375) k/mm3 [facility] 08/20/25 05:31 Sodium 139 Potassium 4.1 Chloride 103 Carbon Dioxide 25 BUN 15 Creatinine 0.57 L Glucose 135 H Calcium 9.6 Cardiac Enzymes 08/20/25 Range/Units 05:31 Total Creatine Kinase 68 (30-135) U/L Troponin I < 0.012 (0.000-0.034) ng/mL Liver Function 08/20/25 Range/Units 05:31 Total Bilirubin 0.6 (0.2-1.3) mg/dL AST 30 (14-36) U/L ALT 23 (6-35) U/L Alkaline Phosphatase 58 (38-126) U/L Albumin 4.8 (3.5-5.1) g/dL Urine 08/20/25 Range/Units 06:38 Urine Color Yellow (Yellow) Urine Appearance Clear (Clear) Urine pH 7.0 (5.0-9.0) Ur Specific [place] 1.020 (1.001-1.035) Urine Protein Negative (Negative) mg/dL Urine Glucose (UA) Negative (Negative) mg/dL Assessment and Plan Assessment and plan (1) Acute CVA (cerebrovascular accident): Code(s): I63.9 - Cerebral infarction, unspecified Status: Acute Plan Left sided weakness with facial droop Symptom onset 630pm 08/19/25 CTA head and neck unremarkable MRI brain and ECHO pending Aspirin and Lipitor LDL 123, A1c 5.3 PT/OT/ST, NPO until passes bedside swallow eval Neurology consulted Leukocytosis likely stress reaction WBC 13.2 monitor IBS continue home meds GERD Continue Protonix DVT prophylaxis on Sq Lovenox Full code SDM: Julio Arriaga Hospitalist [facility] Advance Care Plan I have confirmed that the patient's Advanced Care Plan is present, code status is documented, or surrogate decision maker is listed in patient medical record.: Yes Medication Reconciliation I have utilized all available resources to obtain, update and review the patients current medications (includes all prescriptions, OTC, herbals, cannabis, and nutritional supplements).: Yes
[2025-08-20] MEDS: ATORVASTATIN 40 MG TABLET PO (15:12)
[2025-08-20] MEDS: ONDANSETRON INJ 4 MG/2 ML VIAL IV PUSH (17:20)
[2025-08-20] MEDS: ACETAMINOPHEN 325 MG TABLET 650 MG PO (21:13)
[2025-08-21] VITALS (8 sets, daily range): BP systolic 130–170; BP diastolic 66–75; PULSE 66–100; RESP 20; TEMP 36.4–36.5; O2SAT 96–98
[2025-08-21 06:08] LABS: Hematocrit 38.2 % (37.0-47.0); Hemoglobin 12.6 g/dL (12.0-15.0); Immature Granulocyte Percent A 0.3 % (0-0.5); Lymphocytes Absolute Auto 3.24 K/mm3 (0.9-3.2); Mean Corpuscular HGB Conc 33.0 g/dl (32-36); Mean Corpuscular Hemoglobin 30.1 pg (26-34); Mean Corpuscular Volume 91.4 fl (80-100); Nucleated Red Blood Cells Absolute Auto 0.000 K/mm3 (0.0-0.012); Nucleated Red Blood Cells Perc 0.0 % (0.0-0.2); Platelet Count Result 422 k/mm3 (150-375); Red Blood Count 4.18 M/mm3 (4.2-5.4); White Blood Count 7.8 K/mm3 (4.5-10.0)
[2025-08-21 06:22] LABS: Hemoglobin A1C 5.3 % (<5.7)
[2025-08-21 06:32] LABS: Alanine Aminotransferase 19 U/L (6-35); Albumin Level 4.3 g/dL (3.5-5.1); Alkaline Phosphatase 49 U/L (38-126); Anion Gap 7 mmol/L (4-12); Aspartate Amino Transferase 26 U/L (14-36); Bilirubin,Total 1.4 mg/dL (0.2-1.3); Blood Urea Nitrogen 10 mg/dL (7-17); Calcium 9.0 mg/dL (8.4-10.2); Carbon Dioxide 26 mmol/L (22-30); Chloride 105 mmol/L (98-107); Cholesterol 193 mg/dL (0-200); Estimated CRCL calculation 78 ml/min; Estimated Glomerular Filt Rate > 60; Glucose 105 mg/dL (65-110); HDL Direct 54 mg/dL; Magnesium 2.3 mg/dL (1.6-2.3); Potassium 3.8 mmol/L (3.4-5.0); Sodium 138 mmol/L (137-145); Total Protein 7.0 g/dL (6.3-8.2); Triglycerides 90 mg/dL (<150)
[2025-08-21] MEDS: ATORVASTATIN 40 MG TABLET PO (08:38)
[2025-08-21] MEDS: ASPIRIN 81 MG ENTERIC TABLET PO (08:38)
[2025-08-21] MEDS: ACETAMINOPHEN 325 MG TABLET 650 MG PO ×2 (08:39→18:21)
[2025-08-21] MEDS: ONDANSETRON INJ 4 MG/2 ML VIAL IV PUSH (08:39)
--- NOTE | 2025-08-21 08:55 | PCSTNOTE ---
Order received for communication evaluation on 08/20/25. Review of chart on 08/21/25 indicated hospitalist request of NPO until completion of a swallow evaluation. ER physician documentation indicated a left facial droop, but specifically no need to complete a bedside swallow evaluation or for pt. to be NPO. ER and hospitalist physician charting also indicated no aphasia or dysarthria. Spoke with nursing on 08/21/25, whom indicated that a bedside swallow screen was performed by nursing staff after the original communication evaluation order was placed on 08/20/25. Pt. passed this screen and was placed on a regular with thin liquid diet. Pt. has been tolerating this diet well and not displaying any overt s/s of aspiration. Attending physician was contacted. Followed up with nursing discussing s/s of aspiration and to contact ST if any concerns are observed.
--- NOTE | 2025-08-21 12:48 | PM.IMPN ---
Progress Note: A&P Assessment and Plan (1) Acute CVA (cerebrovascular accident): Code(s): I63.9 - Cerebral infarction, unspecified Status: Acute Plan Acute stroke MRI brain of the right basal ganglia and posterior limb right internal capsule Left sided weakness with facial droop Symptom onset 630pm 08/19/25 CTA head and neck unremarkable MRI brain reviewed and ECHO EF 65-70% Continue Aspirin and Lipitor LDL 123, A1c 5.3 PT/OT/ST Neurology consulted still on permissive hypertension Leukocytosis, resolved likely stress reaction WBC 13.2, today 7.8 monitor IBS continue home meds GERD Continue Protonix DVT prophylaxis on Sq Lovenox Full code Subjective Date/time seen: 08/21/25 12:48 Interval history: Comfortable at bedside noted mild improvement left upper extremity weakness Review of Systems Review of Systems: All other systems were reviewed and negative except as noted in the HPI above Exam Narrative: General: alert and comfortable Eyes: EOMI, PERRLA ENNT External ears normal, Neck is supple, no masses, Respiratory systems: Clear to auscultation Cardiovascular S1, S2, normal rhythm, no murmur, rub, or gallop; no thrill or palpable murmurs on palpation. Gastrointestinal: soft, non-tender, and non-distended abdomen with no masses; BS present Skin: no rash, lesions, ulcerations, subcutaneous nodules or induration Musculoskeletal: no abnormality and no tenderness, normal ROM Neurologic: Alert and oriented x3, power 4/5 left sided, left facial droop. Mental Status Exam: normal affect Objective Data Vital Signs Vital Signs: Vital Signs - 24 hr 08/20/25 14:00 08/20/25 16:00 08/20/25 20:00 Temperature 98.5 F Pulse Rate 75 92 87 Respiratory Rate 18 Blood Pressure 158/65 H Pulse Oximetry 98 Oxygen Delivery 08/20/25 20:00 08/20/25 21:36 08/21/25 00:00 Temperature 98.3 F Pulse Rate 81 66 Respiratory Rate 20 Blood Pressure 156/76 H Pulse Oximetry 98 Oxygen Delivery Room Air 08/21/25 04:00 08/21/25 06:00 08/21/25 08:00 Temperature 97.5 F L Pulse Rate 71 67 100 Respiratory Rate 20 Blood Pressure 170/75 H Pulse Oximetry 98 Oxygen Delivery 08/21/25 08:01 08/21/25 09:45 08/21/25 12:00 Temperature Pulse Rate 73 Respiratory Rate Blood Pressure Pulse Oximetry Oxygen Delivery Room Air Room Air Intake/Output Intake/Output: Intake & Output 08/18/25 08/19/25 08/20/25 08/21/25 23:59 23:59 23:59 23:59 Intake Total 240 150 Balance 240 150 Meds/Results Medications: Active Medications Generic Name Dose Route Start Last Admin Trade Name Freq PRN Reason Stop Dose Admin Acetaminophen 650 mg 08/20/25 20:53 08/21/25 08:39 Acetaminophen 325 Mg Tablet PO 650 mg Q4H PRN Administration Headache Aspirin 81 mg 08/21/25 09:00 08/21/25 08:38 Aspirin 81 Mg Enteric Tablet PO 81 mg QAM JESSICA Administration Atorvastatin Calcium 40 mg 08/20/25 14:45 08/21/25 08:38 Atorvastatin 40 Mg Tablet PO 40 mg DAILY JESSICA Administration Ondansetron HCl 4 mg 08/20/25 09:26 08/21/25 08:39 Ondansetron Inj 4 Mg/2 Ml Vial IV PUSH 4 mg Q4H PRN Administration Nausea Perflutren Lipid Microsphere 0 ml 08/20/25 14:43 Perflutren Lipid Microspheres 1.5 Ml Vial Diluted To 10 Ml Total Volume IV PUSH 08/23/25 14:43 ONCE PRN adequate visualization Protocol Radiology Results: ITS Impressions Chest X-Ray 08/20/25 06:48 IMPRESSION: 1. No acute cardiopulmonary findings given portable technique. Head/Neck CTA 08/20/25 07:32 IMPRESSION: 1. Age-indeterminate infarct in the right basal ganglia. 2. No aneurysm or significant intracranial arterial stenosis. 3. 9% stenosis of the proximal right internal carotid artery relative to normal distal artery lumen diameter (NASCET criteria). 4. 0% stenosis of the proximal left internal carotid artery relative to normal distal artery lumen diameter. Brain MRI 08/21/25 10:01 IMPRESSION: 1. Acute infarct involving the right basal ganglia and posterior limb right internal capsule. Labs Labs: Laboratory Results - last 24 hr 08/21/25 05:39 WBC 7.8 RBC 4.18 L Hgb 12.6 Hct 38.2 MCV 91.4 MCH 30.1 MCHC 33.0 RDW 13.6 Plt Count 422 H MPV 9.6 Immature Gran % (Auto) 0.3 Neut % (Auto) 45.9 Lymph % (Auto) 41.8 [place] % (Auto) 9.3 H Eos % (Auto) 1.9 Baso % (Auto) 0.8 Lymph # (Auto) 3.24 H [place] # (Auto) 0.7 H Eos # (Auto) 0.2 Baso # (Auto) 0.1 Abs Immat Gran (auto) 0.02 Absolute Neuts (auto) 3.6 Absolute Nucleated RBC 0.000 Nucleated RBC % 0.0 Sodium 138 Potassium 3.8 Chloride 105 Carbon Dioxide 26 Anion Gap 7 BUN 10 D Creatinine 0.53 L Estim Creat Clear Calc 78 Estimated GFR > 60 Glucose 105 Hemoglobin A1c 5.3 Calcium 9.0 Magnesium 2.3 Total Bilirubin 1.4 H AST 26 ALT 19 Alkaline Phosphatase 49 Total Protein 7.0 Albumin 4.3 Triglycerides 90 Cholesterol 193 LDL Cholesterol Direct 92 HDL Direct 54
--- NOTE | 2025-08-21 14:39 | PC.NURSE ---
Shirley MILAN notified that patient's left sided weakness is gradually worsening, whereas she was gradually improving up until this point. Asymptomatic otherwise and BP okay at 130/66. aware of this change and directed this RN to update him with the next neuro check.
--- NOTE | 2025-08-21 18:44 | PC.NURSE ---
Unable to reach Shirley MILAN, called 3x and voicemail left, so notified Susana Landry DIABETIC EDUCATOR about most recent neuro check update as per Shirley MILAN request. Patient still having more left sided weakness than this morning and anxious about her symptoms worsening. Updated DIABETIC EDUCATOR and she educated that stoke symptoms can get better and worse for the first week of the stroke, so these symptoms are to be expected, but to continue monitoring her symptoms and reach out if they get worse than her initial symptoms or new onset symptoms start. Said that PT/OT is what we are able to do at this time. Educated patient and her family this information.
[2025-08-22] VITALS (9 sets, daily range): BP systolic 130–140; BP diastolic 60–77; PULSE 68–89; RESP 16–18; TEMP 36.3–36.6; O2SAT 95–98
[2025-08-22 06:01] LABS: Hematocrit 38.0 % (37.0-47.0); Hemoglobin 12.5 g/dL (12.0-15.0); Immature Granulocyte Percent A 0.3 % (0-0.5); Lymphocytes Absolute Auto 2.81 K/mm3 (0.9-3.2); Mean Corpuscular HGB Conc 32.9 g/dl (32-36); Mean Corpuscular Hemoglobin 29.9 pg (26-34); Mean Corpuscular Volume 90.9 fl (80-100); Nucleated Red Blood Cells Absolute Auto 0.000 K/mm3 (0.0-0.012); Nucleated Red Blood Cells Perc 0.0 % (0.0-0.2); Platelet Count Result 391 k/mm3 (150-375); Red Blood Count 4.18 M/mm3 (4.2-5.4); White Blood Count 9.1 K/mm3 (4.5-10.0)
[2025-08-22 06:28] LABS: Alanine Aminotransferase 18 U/L (6-35); Albumin Level 4.3 g/dL (3.5-5.1); Alkaline Phosphatase 51 U/L (38-126); Anion Gap 9 mmol/L (4-12); Aspartate Amino Transferase 25 U/L (14-36); Bilirubin,Total 0.8 mg/dL (0.2-1.3); Blood Urea Nitrogen 12 mg/dL (7-17); Calcium 8.8 mg/dL (8.4-10.2); Carbon Dioxide 24 mmol/L (22-30); Chloride 106 mmol/L (98-107); Estimated CRCL calculation 85 ml/min; Estimated Glomerular Filt Rate > 60; Glucose 111 mg/dL (65-110); Magnesium 2.2 mg/dL (1.6-2.3); Potassium 3.9 mmol/L (3.4-5.0); Sodium 139 mmol/L (137-145); Total Protein 7.0 g/dL (6.3-8.2)
[2025-08-22] MEDS: ASPIRIN 81 MG ENTERIC TABLET PO (09:00)
[2025-08-22] MEDS: ATORVASTATIN 40 MG TABLET PO (09:00)
[2025-08-22] MEDS: ACETAMINOPHEN 325 MG TABLET 650 MG PO ×2 (09:02→20:53)
[2025-08-22] MEDS: ONDANSETRON INJ 4 MG/2 ML VIAL IV PUSH (13:29)
--- NOTE | 2025-08-22 14:32 | P.PNIM_ITS ---
Progress Note: A&P Assessment and Plan (1) Acute CVA (cerebrovascular accident): Code(s): I63.9 - Cerebral infarction, unspecified Status: Acute Plan Acute stroke MRI brain of the right basal ganglia and posterior limb right internal capsule Left sided weakness with facial droop Symptom onset 630pm 08/19/25 CTA head and neck unremarkable MRI brain reviewed and ECHO EF 65-70% Continue Aspirin and Lipitor LDL 123, A1c 5.3 PT/OT/ST Neurology consulted Off permissive hypertension CT Brain ordered for worsening leftsided weakness Leukocytosis, resolved likely stress reaction WBC 13.2, today 7.8 monitor IBS continue home meds GERD Continue Protonix DVT prophylaxis on Sq Lovenox Full code Subjective Date/time seen: 08/22/25 14:32 Interval history: Comfortable at bedside complained of left sided weakness Review of Systems Review of Systems: All other systems were reviewed and negative except as noted in the HPI above Exam Narrative: General: alert and comfortable Eyes: EOMI, PERRLA ENNT External ears normal, Neck is supple, no masses, Respiratory systems: Clear to auscultation Cardiovascular S1, S2, normal rhythm, no murmur, rub, or gallop; no thrill or palpable murmurs on palpation. Gastrointestinal: soft, non-tender, and non-distended abdomen with no masses; BS present Skin: no rash, lesions, ulcerations, subcutaneous nodules or induration Musculoskeletal: no abnormality and no tenderness, normal ROM Neurologic: Alert and oriented x3, power 4/5 left sided, left facial droop. Mental Status Exam: normal affect Objective Data Vital Signs Vital Signs: Vital Signs - 24 hr 08/21/25 16:00 08/21/25 20:00 08/21/25 22:00 Temperature 97.7 F Pulse Rate 75 71 Respiratory Rate 20 Blood Pressure 161/71 H Pulse Oximetry 96 Oxygen Delivery Room Air 08/22/25 00:00 08/22/25 04:00 08/22/25 05:43 Temperature 97.8 F Pulse Rate 75 72 70 Respiratory Rate 18 Blood Pressure 140/77 Pulse Oximetry 98 Oxygen Delivery 08/22/25 08:00 Temperature Pulse Rate 89 Respiratory Rate Blood Pressure Pulse Oximetry Oxygen Delivery Intake/Output Intake/Output: Intake & Output 08/19/25 08/20/25 08/21/25 08/22/25 23:59 23:59 23:59 23:59 Intake Total 240 710 220 Balance 240 710 220 Meds/Results Medications: Active Medications Generic Name Dose Route Start Last Admin Trade Name Freq PRN Reason Stop Dose Admin Acetaminophen 650 mg 08/20/25 20:53 08/22/25 09:02 Acetaminophen 325 Mg Tablet PO 650 mg Q4H PRN Administration Headache Aspirin 81 mg 08/21/25 09:00 08/22/25 09:00 Aspirin 81 Mg Enteric Tablet PO 81 mg QAM JESSICA Administration Atorvastatin Calcium 40 mg 08/20/25 14:45 08/22/25 09:00 Atorvastatin 40 Mg Tablet PO 40 mg DAILY JESSICA Administration Lisinopril 10 mg 08/22/25 10:30 08/22/25 10:56 Lisinopril 10 Mg Tablet PO 10 mg DAILY JESSICA Administration Ondansetron HCl 4 mg 08/20/25 09:26 08/22/25 13:29 Ondansetron Inj 4 Mg/2 Ml Vial IV PUSH 4 mg Q4H PRN Administration Nausea Perflutren Lipid Microsphere 0 ml 08/20/25 14:43 Perflutren Lipid Microspheres 1.5 Ml Vial Diluted To 10 Ml Total Volume IV PUSH 08/23/25 14:43 ONCE PRN adequate visualization Protocol Radiology Results: ITS Impressions Chest X-Ray 08/20/25 06:48 IMPRESSION: 1. No acute cardiopulmonary findings given portable technique. Head/Neck CTA 08/20/25 07:32 IMPRESSION: 1. Age-indeterminate infarct in the right basal ganglia. 2. No aneurysm or significant intracranial arterial stenosis. 3. 9% stenosis of the proximal right internal carotid artery relative to normal distal artery lumen diameter (NASCET criteria). 4. 0% stenosis of the proximal left internal carotid artery relative to normal distal artery lumen diameter. Brain MRI 08/21/25 10:01 IMPRESSION: 1. Acute infarct involving the right basal ganglia and posterior limb right internal capsule. Labs Labs: Laboratory Results - last 24 hr 08/22/25 05:54 WBC 9.1 RBC 4.18 L Hgb 12.5 Hct 38.0 MCV 90.9 MCH 29.9 MCHC 32.9 RDW 13.2 Plt Count 391 H MPV 8.9 Immature Gran % (Auto) 0.3 Neut % (Auto) 57.7 Lymph % (Auto) 30.9 [place] % (Auto) 9.3 H Eos % (Auto) 1.3 Baso % (Auto) 0.5 Lymph # (Auto) 2.81 [place] # (Auto) 0.9 H Eos # (Auto) 0.1 Baso # (Auto) 0.1 Abs Immat Gran (auto) 0.03 Absolute Neuts (auto) 5.2 Absolute Nucleated RBC 0.000 Nucleated RBC % 0.0 Sodium 139 Potassium 3.9 Chloride 106 Carbon Dioxide 24 Anion Gap 9 BUN 12 Creatinine 0.48 L Estim Creat Clear Calc 85 Estimated GFR > 60 Glucose 111 H Lactic Acid 0.6 L Calcium 8.8 Magnesium 2.2 Total Bilirubin 0.8 AST 25 ALT 18 Alkaline Phosphatase 51 Total Protein 7.0 Albumin 4.3
--- NOTE | 2025-08-22 16:42 | PC.NURSE ---
Addendum entered by Mariel Carrillo RN 08/22/25 18:10: Shirley MILAN called due to patient and family request for PRN medication for anxiety and for omeprazole or something similar. Shirley MILAN stated that he will take care of it. Also, addressed starting a blood thinner for the patient as she only is taking 81mg aspirin daily. stated that is not necessary as she does not have afib. Original Note: Shirley MILAN called due to patient and family request for PRN medication for anxiety and for omeprazole or something similar. Shirley MILAN stated that he will take care of it.
[2025-08-22] MEDS: PANTOPRAZOLE 40 MG TABLET PO (17:04)
[2025-08-23] VITALS (9 sets, daily range): BP systolic 122–137; BP diastolic 61–71; PULSE 64–78; RESP 16–18; TEMP 36.6–36.8; O2SAT 96–98
[2025-08-23 06:37] LABS: Hematocrit 39.9 % (37.0-47.0); Hemoglobin 12.9 g/dL (12.0-15.0); Immature Granulocyte Percent A 0.4 % (0-0.5); Lymphocytes Absolute Auto 2.25 K/mm3 (0.9-3.2); Mean Corpuscular HGB Conc 32.3 g/dl (32-36); Mean Corpuscular Hemoglobin 29.7 pg (26-34); Mean Corpuscular Volume 91.7 fl (80-100); Nucleated Red Blood Cells Absolute Auto 0.000 K/mm3 (0.0-0.012); Nucleated Red Blood Cells Perc 0.0 % (0.0-0.2); Platelet Count Result 408 k/mm3 (150-375); Red Blood Count 4.35 M/mm3 (4.2-5.4); White Blood Count 9.5 K/mm3 (4.5-10.0)
[2025-08-23 07:06] LABS: Alanine Aminotransferase 17 U/L (6-35); Albumin Level 4.3 g/dL (3.5-5.1); Alkaline Phosphatase 55 U/L (38-126); Anion Gap 8 mmol/L (4-12); Aspartate Amino Transferase 24 U/L (14-36); Bilirubin,Total 0.9 mg/dL (0.2-1.3); Blood Urea Nitrogen 14 mg/dL (7-17); Calcium 9.0 mg/dL (8.4-10.2); Carbon Dioxide 23 mmol/L (22-30); Chloride 106 mmol/L (98-107); Estimated CRCL calculation 83 ml/min; Estimated Glomerular Filt Rate > 60; Glucose 109 mg/dL (65-110); Magnesium 2.3 mg/dL (1.6-2.3); Potassium 3.9 mmol/L (3.4-5.0); Sodium 137 mmol/L (137-145); Total Protein 7.2 g/dL (6.3-8.2)
[2025-08-23] MEDS: ONDANSETRON INJ 4 MG/2 ML VIAL IV PUSH (07:30)
[2025-08-23] MEDS: ACETAMINOPHEN 325 MG TABLET 650 MG PO ×2 (08:24→20:41)
[2025-08-23] MEDS: ASPIRIN 81 MG ENTERIC TABLET PO (08:24)
[2025-08-23] MEDS: PANTOPRAZOLE 40 MG TABLET PO (08:24)
[2025-08-23] MEDS: ATORVASTATIN 40 MG TABLET PO (08:24)
--- NOTE | 2025-08-23 11:25 | WPDNEURCNPN ---
Assessment and Plan Assessment and plan (1) Acute CVA (cerebrovascular accident): Code(s): I63.9 - Cerebral infarction, unspecified Status: Acute Assessment and Plan: patient has a fair amount of weakness in the left side of the body and the weakness did progress after admission which is not uncommon since the stroke fully developed in 2-5 days after the onset in many cases. She requires physical therapy and occupational therapy. She should be continued on Lipitor. I will suggest to add anti-platelet agent such as Plavix 75 mg a day and continue the aspirin 81 mg a day. (2) NAFLD (nonalcoholic fatty liver disease): Code(s): K76.0 - Fatty (change of) liver, not elsewhere classified Status: Acute (3) Thrombocytosis: Code(s): D75.839 - Thrombocytosis, unspecified Status: Acute Assessment and Plan: I noted that her platelet count have been high wears the white cell count and RBC count were within normal range. She should be evaluated by a turning machine set up operator however it can be done as an outpatient since she has this problem for quite some time. Her platelet count has ranged from 391 to 451 during the past 1 year. I have discussed the findings with Dr. Minaya , hospitalist physician. Plan As discussed above can start her on Plavix 75 mg a day. I will suggest to consider Hematology consultation. Her LDL we need to followed up. I have advised her to continue follow with the primary care provider and she probably needs to sign of with 1 per in the meanwhile the any questions I would be glad to see her. I have advised her to continue the physical therapy and occupational therapy even after discharge in outpatient. And hence the safety would need to be assessed by the occupational therapist. Consult date: 08/23/25 HPI: Kristin Cheng is a 70 year old female Who presented to the hospital on 08/20/2025 with weakness on the left side of the body. The patient today was at work and then there was a fire drill and after that she walked down 11 flights of stairs. She felt lightheaded and had some rubbery feeling in her legs. No passing out spell or confusional state. No difficulty speech or swallowing. She has now worsened after admission with the weakness in the left side of the body. MRI of the brain shows acute infarct in the right basal ganglia region and also internal capsule region. CT angiogram of the head and neck was performed which did not show any significant abnormality. CT scan of brain was performed which did also show air acute right basal ganglia infarct on admission. Her NIH score was 3. She presented 6-1/2 hours after the onset of symptoms. Patient lives alone but has a boyfriend and son. Her son and [id number] present at the time of the evaluation. Her white cell count was elevated at 13.2 on admission which has subsequently improved to 7.8. Her LDL was 92. Platelet count have been high and on this occasion also high at 408. However her WBC count and hemoglobin are normal. Hemoglobin A1c was 5.3. There is a family history of myocardial infarction however no family history of stroke. Patient does not smoke. She is fairly active and prior to the onset of the above weakness he has been able to take care of herself. The patient also diagnosed to have non alcoholic fatty liver in the past. No history of any cardiac disease or stroke or transient ischemic attack in the past. Her echocardiogram was performed on this admission which shows ejection fraction of 30-65 to 70%. No other significant abnormalities were noted. Patient is currently on aspirin 81 mg a day and atorvastatin 40 mg a day. Review of Systems Review of Systems: All systems reviewed & are unremarkable except as noted in HPI and below PMFSH Past Medical History Medical History Osteopenia Irritable bowel syndrome Gastroesophageal reflux disease Surgical History Surgical History History of dilation and curettage Hx of cholecystectomy Family History Family History Mother Family history of pancreatic cancer Heart problem Father Family history of lung cancer Alcoholism Other Diabetes mellitus Hypertension Heart problem Grandparent Breast cancer Grandparent Cerebrovascular accident Social History Social History Social History: caffeine use Smoking status: Never smoker Alcohol intake: current Drinks per week: 0 Alcohol use details: States she drinks wine very seldom Substance use: never Substance use type: does not use Other substance usage details: glass of wine on occasion Lack of Transportation: No Lack of Food: Never True Current Housing: I Have Housing Concerned About Future Housing: No Difficulty Paying Gas/Electric Bills: No Difficulty Paying for Meds: No Currently Unemployed: No Education: High School Diploma/GED Difficulty w/ Childcare or Family Care: No Living arrangements: alone Occupation/Education: occupation 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 Gender identity (if verbalized by the patient): Female Spiritual care concerns: No Meds Home Medications and Allergies Home Medications ?Medication ?Instructions ?Recorded ?Confirmed ?Type multivitamin 1 tablet PO .TIW 04/07/24 08/20/25 History alendronate 35 mg tablet 35 mg PO WEEKLY 08/20/25 08/20/25 History omeprazole 20 mg capsule,delayed 20 mg PO DAILY 08/20/25 08/20/25 History release Allergies Allergy/AdvReac Type Severity Reaction Status Date / Time No Known Allergies Allergy Mild Verified 08/20/25 11:22 Vital Signs Vital Signs - 24 hr 08/22/25 12:00 08/22/25 14:00 08/22/25 16:00 Temperature 97.3 F L Pulse Rate 74 68 81 Respiratory Rate 16 Blood Pressure 131/65 Pulse Oximetry 97 Oxygen Delivery 08/22/25 20:00 08/22/25 21:17 08/23/25 00:00 Temperature 97.8 F Pulse Rate 76 74 64 Respiratory Rate 18 Blood Pressure 130/60 Pulse Oximetry 95 Oxygen Delivery 08/23/25 04:00 08/23/25 05:06 08/23/25 08:00 Temperature 97.9 F Pulse Rate 70 64 64 Respiratory Rate 18 18 Blood Pressure 137/62 Pulse Oximetry 97 97 Oxygen Delivery Room Air 08/23/25 08:00 Temperature Pulse Rate 73 Respiratory Rate Blood Pressure Pulse Oximetry Oxygen Delivery Exam Const: General: cooperative, healthy appearing and comfortable HENMT: Head: atraumatic Mouth: Yes oropharynx normal Eyes: Alignment and Position: alignment normal and position normal EOM: EOMs intact bilaterally Neck: Neck: normal visual inspection and supple Resp: Effort & Inspection: normal respiratory effort Cardio: Heart sounds: S1 normal heart sound present and S2 normal heart sound present Skin: General skin exam: normal color Neuro: Cranial nerves: Yes CN's II-XII intact bilaterally ( Except for mild supranuclear left facial weakness) and Yes Midline tongue present Cognition (Neuro): normal cognition Speech: normal speech Sensory Exam: normal sensation Coordination: [id number] test normal and Normal rapid alternating movements of the distal upper extremity present (Neuro) Other: patient has significant weakness of the left upper limb power grade 2 over 5 in proximal muscles and distally she has almost 0 at the hands. She is unable to flex her left knee and wants to keep it straight and has significant weakness in the left lower limb also. Deep tendon reflexes however did not show any significant asymmetry. No involuntary movements were seen. Extrem: General: normal to inspection Psych: Appearance: well kempt Mental Status: mental status grossly normal Speech and movement: Normal speech and movement present Affect: normal affect Thought process: Normal thought process present Thought content: Yes Normal thought content present Insight: Good insight present (Psych) Judgement: Good judgement present (Psych) Results Labs 08/23/25 06:05 08/23/25 06:05 Labs: Short CBC 08/23/25 Range/Units 06:05 WBC 9.5 (4.5-10.0) K/mm3 Hgb 12.9 (12.0-15.0) g/dL Hct 39.9 (37.0-47.0) % Plt Count 408 H (150-375) k/mm3 BMP 08/23/25 06:05 Sodium 137 Potassium 3.9 Chloride 106 Carbon Dioxide 23 BUN 14 Creatinine 0.49 L Glucose 109 Calcium 9.0 Liver Function 08/23/25 Range/Units 06:05 Total Bilirubin 0.9 (0.2-1.3) mg/dL AST 24 (14-36) U/L ALT 17 (6-35) U/L Alkaline Phosphatase 55 (38-126) U/L Albumin 4.3 (3.5-5.1) g/dL Imaging Attestation: I personally reviewed and interpreted this imaging study as follows: ( CT scan of brain and MRI of the brain and CT angiogram of the head and neck) My impression: CT scan of brain and MRI of the brain shows an infarct in the right basal ganglia region. CT angiogram did not show any significant abnormal findings. MRI of the brain also shows mild chronic white matter changes besides the acute stroke. Radiologist's impression: Same
--- NOTE | 2025-08-23 11:40 | PM.IMPN ---
Progress Note: A&P Assessment and Plan (1) Acute CVA (cerebrovascular accident): Code(s): I63.9 - Cerebral infarction, unspecified Status: Acute Plan Acute stroke MRI brain of the right basal ganglia and posterior limb right internal capsule Left sided weakness with facial droop Symptom onset 630pm 08/19/25 CTA head and neck unremarkable MRI brain reviewed and ECHO EF 65-70% Repeat CT head no hemorrhage Continue Aspirin, Plavix x 21 days, and Lipitor LDL 123, A1c 5.3 PT/OT/ST Discussed with neurology for the zaida recommendatiosn Hypertension BP now 137/62 Continue Lisinopril 10mg daily monitor Leukocytosis, resolved likely stress reaction WBC 13.2, today 7.8 monitor IBS continue home meds GERD Continue Protonix DVT prophylaxis on Sq Lovenox Full code Subjective Date/time seen: 08/23/25 11:40 Interval history: Comfortable at bedside Review of Systems Review of Systems: All other systems were reviewed and negative except as noted in the HPI above Exam Narrative: General: alert and comfortable Eyes: EOMI, PERRLA ENNT External ears normal, Neck is supple, no masses, Respiratory systems: Clear to auscultation Cardiovascular S1, S2, normal rhythm, no murmur, rub, or gallop; no thrill or palpable murmurs on palpation. Gastrointestinal: soft, non-tender, and non-distended abdomen with no masses; BS present Skin: no rash, lesions, ulcerations, subcutaneous nodules or induration Musculoskeletal: no abnormality and no tenderness, normal ROM Neurologic: Alert and oriented x3, power 4/5 left sided, left facial droop. Mental Status Exam: normal affect Objective Data Vital Signs Vital Signs: Vital Signs - 24 hr 08/22/25 12:00 08/22/25 14:00 08/22/25 16:00 Temperature 97.3 F L Pulse Rate 74 68 81 Respiratory Rate 16 Blood Pressure 131/65 Pulse Oximetry 97 Oxygen Delivery 08/22/25 20:00 08/22/25 21:17 08/23/25 00:00 Temperature 97.8 F Pulse Rate 76 74 64 Respiratory Rate 18 Blood Pressure 130/60 Pulse Oximetry 95 Oxygen Delivery 08/23/25 04:00 08/23/25 05:06 08/23/25 08:00 Temperature 97.9 F Pulse Rate 70 64 64 Respiratory Rate 18 18 Blood Pressure 137/62 Pulse Oximetry 97 97 Oxygen Delivery Room Air 08/23/25 08:00 Temperature Pulse Rate 73 Respiratory Rate Blood Pressure Pulse Oximetry Oxygen Delivery Intake/Output Intake/Output: Intake & Output 08/20/25 08/21/25 08/22/25 08/23/25 23:59 23:59 23:59 23:59 Intake Total 240 710 700 650 Balance 240 710 700 650 Meds/Results Medications: Active Medications Generic Name Dose Route Start Last Admin Trade Name Freq PRN Reason Stop Dose Admin Acetaminophen 650 mg 08/20/25 20:53 08/23/25 08:24 Acetaminophen 325 Mg Tablet PO 650 mg Q4H PRN Administration Headache Aspirin 81 mg 08/21/25 09:00 08/23/25 08:24 Aspirin 81 Mg Enteric Tablet PO 81 mg QAM JESSICA Administration Atorvastatin Calcium 40 mg 08/20/25 14:45 08/23/25 08:24 Atorvastatin 40 Mg Tablet PO 40 mg DAILY JESSICA Administration Buspirone HCl 5 mg 08/22/25 17:00 08/23/25 07:30 Buspirone Hcl 5 Mg Tablet PO 5 mg Q12HR PRN Administration Anxiety Clopidogrel Bisulfate 75 mg 08/24/25 09:00 Clopidogrel Bisulfate 75 Mg Tablet PO QAM JESSICA Clopidogrel Bisulfate 75 mg 08/24/25 09:00 Clopidogrel Bisulfate 75 Mg Tablet PO QAM JESSICA Lisinopril 10 mg 08/22/25 10:30 08/23/25 08:24 Lisinopril 10 Mg Tablet PO 10 mg DAILY JESSICA Administration Ondansetron HCl 4 mg 08/20/25 09:26 08/23/25 07:30 Ondansetron Inj 4 Mg/2 Ml Vial IV PUSH 4 mg Q4H PRN Administration Nausea Pantoprazole Sodium 40 mg 08/22/25 17:00 08/23/25 08:24 Pantoprazole 40 Mg Tablet PO 40 mg QAM JESSICA Administration Perflutren Lipid Microsphere 0 ml 08/20/25 14:43 Perflutren Lipid Microspheres 1.5 Ml Vial Diluted To 10 Ml Total Volume IV PUSH 08/23/25 14:43 ONCE PRN adequate visualization Protocol Radiology Results: ITS Impressions Chest X-Ray 08/20/25 06:48 IMPRESSION: 1. No acute cardiopulmonary findings given portable technique. Head/Neck CTA 08/20/25 07:32 IMPRESSION: 1. Age-indeterminate infarct in the right basal ganglia. 2. No aneurysm or significant intracranial arterial stenosis. 3. 9% stenosis of the proximal right internal carotid artery relative to normal distal artery lumen diameter (NASCET criteria). 4. 0% stenosis of the proximal left internal carotid artery relative to normal distal artery lumen diameter. Brain MRI 08/21/25 10:01 IMPRESSION: 1. Acute infarct involving the right basal ganglia and posterior limb right internal capsule. Head CT 08/22/25 15:35 Impression: Acute right basal ganglia infarct. No hemorrhage. MRI is recommended to further evaluate Labs Labs: Laboratory Results - last 24 hr 08/23/25 06:05 WBC 9.5 RBC 4.35 Hgb 12.9 Hct 39.9 MCV 91.7 MCH 29.7 MCHC 32.3 RDW 13.3 Plt Count 408 H MPV 9.0 Immature Gran % (Auto) 0.4 Neut % (Auto) 65.6 Lymph % (Auto) 23.7 [place] % (Auto) 8.7 H Eos % (Auto) 1.1 Baso % (Auto) 0.5 Lymph # (Auto) 2.25 [place] # (Auto) 0.8 H Eos # (Auto) 0.1 Baso # (Auto) 0.1 Abs Immat Gran (auto) 0.04 H Absolute Neuts (auto) 6.2 Absolute Nucleated RBC 0.000 Nucleated RBC % 0.0 Sodium 137 Potassium 3.9 Chloride 106 Carbon Dioxide 23 Anion Gap 8 BUN 14 Creatinine 0.49 L Estim Creat Clear Calc 83 Estimated GFR > 60 Glucose 109 Calcium 9.0 Magnesium 2.3 Total Bilirubin 0.9 AST 24 ALT 17 Alkaline Phosphatase 55 Total Protein 7.2 Albumin 4.3
[2025-08-24] VITALS (10 sets, daily range): BP systolic 119–148; BP diastolic 54–68; PULSE 68–93; RESP 16–20; TEMP 35.9–36.8; O2SAT 96–99
[2025-08-24 05:59] LABS: Hematocrit 39.7 % (37.0-47.0); Hemoglobin 13.1 g/dL (12.0-15.0); Immature Granulocyte Percent A 0.4 % (0-0.5); Lymphocytes Absolute Auto 1.71 K/mm3 (0.9-3.2); Mean Corpuscular HGB Conc 33.0 g/dl (32-36); Mean Corpuscular Hemoglobin 29.9 pg (26-34); Mean Corpuscular Volume 90.6 fl (80-100); Nucleated Red Blood Cells Absolute Auto 0.000 K/mm3 (0.0-0.012); Nucleated Red Blood Cells Perc 0.0 % (0.0-0.2); Platelet Count Result 370 k/mm3 (150-375); Red Blood Count 4.38 M/mm3 (4.2-5.4); White Blood Count 7.9 K/mm3 (4.5-10.0)
[2025-08-24 06:20] LABS: Iron 71 ug/dL (37-170)
[2025-08-24 06:27] LABS: Alanine Aminotransferase 18 U/L (6-35); Albumin Level 4.3 g/dL (3.5-5.1); Alkaline Phosphatase 55 U/L (38-126); Anion Gap 8 mmol/L (4-12); Aspartate Amino Transferase 29 U/L (14-36); Bilirubin,Total 1.0 mg/dL (0.2-1.3); Blood Urea Nitrogen 15 mg/dL (7-17); Calcium 8.9 mg/dL (8.4-10.2); Carbon Dioxide 23 mmol/L (22-30); Chloride 106 mmol/L (98-107); Estimated CRCL calculation 90 ml/min; Estimated Glomerular Filt Rate > 60; Glucose 109 mg/dL (65-110); Magnesium 2.2 mg/dL (1.6-2.3); Potassium 3.9 mmol/L (3.4-5.0); Sodium 137 mmol/L (137-145); Total Protein 7.1 g/dL (6.3-8.2)
[2025-08-24 06:30] LABS: Percent Iron Saturation 22 % (20-50)
[2025-08-24 06:57] LABS: Ferritin 71.90 ng/mL (11.1-264)
[2025-08-24] MEDS: CLOPIDOGREL BISULFATE 75 MG TABLET PO (08:12)
[2025-08-24] MEDS: ATORVASTATIN 40 MG TABLET PO (08:12)
[2025-08-24] MEDS: PANTOPRAZOLE 40 MG TABLET PO (08:12)
[2025-08-24] MEDS: ASPIRIN 81 MG ENTERIC TABLET PO (08:13)
[2025-08-24] MEDS: ACETAMINOPHEN 325 MG TABLET 650 MG PO ×2 (08:19→14:34)
--- NOTE | 2025-08-24 09:39 | P.PNIM_ITS ---
Progress Note: A&P Assessment and Plan (1) Acute CVA (cerebrovascular accident): Code(s): I63.9 - Cerebral infarction, unspecified Status: Acute Plan Acute stroke MRI brain of the right basal ganglia and posterior limb right internal capsule Left sided weakness with facial droop Symptom onset 630pm 08/19/25 CTA head and neck unremarkable MRI brain reviewed and ECHO EF 65-70% Repeat CT head no hemorrhage Continue Aspirin, Plavix x 21 days, and Lipitor LDL 123, A1c 5.3 PT/OT/ST Discussed with neurology for the zaida recommendatiosn Hypertension BP now 137/62 Continue Lisinopril 10mg daily monitor Leukocytosis, resolved likely stress reaction WBC 13.2, today 7.8 monitor IBS continue home meds GERD Continue Protonix DVT prophylaxis on Sq Lovenox Full code Subjective Date/time seen: 08/24/25 09:39 Interval history: Patient had acute CVA with left side weakness. Patient needs rehab Review of Systems Review of Systems: All other systems were reviewed and negative except as noted in the HPI above Exam Narrative: General: alert and comfortable Eyes: EOMI, PERRLA ENNT External ears normal, Neck is supple, no masses, Respiratory systems: Clear to auscultation Cardiovascular S1, S2, normal rhythm, no murmur, rub, or gallop; no thrill or palpable murmurs on palpation. Gastrointestinal: soft, non-tender, and non-distended abdomen with no masses; BS present Skin: no rash, lesions, ulcerations, subcutaneous nodules or induration Musculoskeletal: no abnormality and no tenderness, normal ROM Neurologic: Alert and oriented x3, power 4/5 left sided, left facial droop. Mental Status Exam: normal affect Objective Data Vital Signs Vital Signs: Vital Signs - 24 hr 08/23/25 12:00 08/23/25 13:51 08/23/25 16:00 Temperature 98.3 F Pulse Rate 78 72 77 Respiratory Rate 16 Blood Pressure 123/61 Pulse Oximetry 96 Oxygen Delivery 08/23/25 20:00 08/23/25 20:00 08/23/25 22:00 Temperature 98.0 F Pulse Rate 76 76 76 Respiratory Rate 16 16 Blood Pressure 122/71 Pulse Oximetry 98 98 Oxygen Delivery Room Air 08/24/25 00:00 08/24/25 04:00 08/24/25 04:02 Temperature 98.2 F Pulse Rate 68 68 68 Respiratory Rate 18 Blood Pressure 132/54 L Pulse Oximetry 96 Oxygen Delivery Intake/Output Intake/Output: Intake & Output 08/21/25 08/22/25 08/23/25 08/24/25 23:59 23:59 23:59 23:59 Intake Total 700 318 3027 268 Balance 150 542 3218 268 Meds/Results Medications: Active Medications Generic Name Dose Route Start Last Admin Trade Name Freq PRN Reason Stop Dose Admin Acetaminophen 650 mg 08/20/25 20:53 08/24/25 08:19 Acetaminophen 325 Mg Tablet PO 650 mg Q4H PRN Administration Headache Aspirin 81 mg 08/21/25 09:00 08/24/25 08:13 Aspirin 81 Mg Enteric Tablet PO 81 mg QAM JESSICA Administration Atorvastatin Calcium 40 mg 08/20/25 14:45 08/24/25 08:12 Atorvastatin 40 Mg Tablet PO 40 mg DAILY JESSICA Administration Buspirone HCl 5 mg 08/22/25 17:00 08/24/25 09:10 Buspirone Hcl 5 Mg Tablet PO 5 mg Q12HR PRN Administration Anxiety Clopidogrel Bisulfate 75 mg 08/24/25 09:00 08/24/25 08:12 Clopidogrel Bisulfate 75 Mg Tablet PO 75 mg QAM JESSICA Administration Lisinopril 10 mg 08/22/25 10:30 08/24/25 08:12 Lisinopril 10 Mg Tablet PO 10 mg DAILY JESSICA Administration Ondansetron HCl 4 mg 08/20/25 09:26 08/23/25 07:30 Ondansetron Inj 4 Mg/2 Ml Vial IV PUSH 4 mg Q4H PRN Administration Nausea Pantoprazole Sodium 40 mg 08/22/25 17:00 08/24/25 08:12 Pantoprazole 40 Mg Tablet PO 40 mg QAM JESSICA Administration Polyethylene Glycol 17 gm 08/24/25 09:00 08/24/25 09:19 Polyethylene Glycol 3350 17 Gm Powd.Pack PO 17 gm BID JESSICA Administration Radiology Results: ITS Impressions Chest X-Ray 08/20/25 06:48 IMPRESSION: 1. No acute cardiopulmonary findings given portable technique. Head/Neck CTA 08/20/25 07:32 IMPRESSION: 1. Age-indeterminate infarct in the right basal ganglia. 2. No aneurysm or significant intracranial arterial stenosis. 3. 9% stenosis of the proximal right internal carotid artery relative to normal distal artery lumen diameter (NASCET criteria). 4. 0% stenosis of the proximal left internal carotid artery relative to normal distal artery lumen diameter. Brain MRI 08/21/25 10:01 IMPRESSION: 1. Acute infarct involving the right basal ganglia and posterior limb right internal capsule. Head CT 08/22/25 15:35 Impression: Acute right basal ganglia infarct. No hemorrhage. MRI is recommended to further evaluate Labs Labs: Laboratory Results - last 24 hr 08/24/25 08/24/25 05:50 05:51 WBC 7.9 RBC 4.38 Hgb 13.1 Hct 39.7 MCV 90.6 MCH 29.9 MCHC 33.0 RDW 13.1 Plt Count 370 MPV 8.9 Immature Gran % (Auto) 0.4 Neut % (Auto) 67.3 Lymph % (Auto) 21.6 [place] % (Auto) 9.2 H Eos % (Auto) 1.1 Baso % (Auto) 0.4 Lymph # (Auto) 1.71 [place] # (Auto) 0.7 H Eos # (Auto) 0.1 Baso # (Auto) 0.0 Abs Immat Gran (auto) 0.03 Absolute Neuts (auto) 5.3 Absolute Nucleated RBC 0.000 Nucleated RBC % 0.0 Sodium 137 Potassium 3.9 Chloride 106 Carbon Dioxide 23 Anion Gap 8 BUN 15 Creatinine 0.45 L Estim Creat Clear Calc 90 Estimated GFR > 60 Glucose 109 Calcium 8.9 Magnesium 2.2 Iron 71 TIBC 330 % Saturation 22 Ferritin 71.90 Total Bilirubin 1.0 AST 29 ALT 18 Alkaline Phosphatase 55 Total Protein 7.1 Albumin 4.3 Hospitalist MIPS Advance Care Plan I have confirmed that the patient's Advanced Care Plan is present, code status is documented, or surrogate decision maker is listed in patient medical record.: Yes Medication Reconciliation I have utilized all available resources to obtain, update and review the patients current medications (includes all prescriptions, OTC, herbals, cannabis, and nutritional supplements).: Yes
--- NOTE | 2025-08-24 18:59 | WPDONCCN ---
Assessment and Plan Assessment and plan (1) Thrombocytosis: Code(s): D75.839 - Thrombocytosis, unspecified Status: Acute Assessment and Plan: Patient came into the hospital with left upper and lower extremity weakness. MRI brain showed right basal ganglia and posterior limb right internal capsule infarction. She was admitted with acute stroke. Plavix and aspirin was started. She has no previous history of thromboembolic events. Patient has a history of mild thrombocytosis in the past. Labs showed elevated platelet count. I will order the workup that would include JAK2 mutation and iron studies. Will check C-reactive protein and sedimentation rate as well. Platelet count has already come down to normal at this time. No need for hydroxyurea therapy at this time. She will follow-up in the office. HPI Data of Consult Date/Time: 08/24/25 18:59 Requesting Physician: Linda Kumar MD Primary Care Provider: Jose Angel Atkinson MD Consult Narrative Narrative: Kristin Cheng is a 70 year old female with no previous history of thromboembolic events and stroke came into the hospital with left-sided weakness. She is still working and remains quite active. She has history of IBS, GERD and osteopenia. CTA brain carotid showed age-indeterminate infarction in the right basal ganglia. Brain MRI showed acute infarction involving the right basal ganglia and posterior limb the right internal capsule. Labs showed elevated platelet count of 451,000. She had elevated platelet count of 428 1000 in October of 2024. She denies any bleeding including melena hematochezia. Denies any other new complaints. Patient was started on aspirin and Plavix. Review of Systems Review of Systems: Twelve point review of system was reviewed [facility] Past Medical History Medical History Osteopenia Irritable bowel syndrome Gastroesophageal reflux disease Surgical History Surgical History History of dilation and curettage Hx of cholecystectomy Family History Family History Mother Family history of pancreatic cancer Heart problem Father Family history of lung cancer Alcoholism Other Diabetes mellitus Hypertension Heart problem Grandparent Breast cancer Grandparent Cerebrovascular accident Social History Social History Social History: caffeine use Smoking status: Never smoker Alcohol intake: current Drinks per week: 0 Alcohol use details: States she drinks wine very seldom Substance use: never Substance use type: does not use Other substance usage details: glass of wine on occasion Lack of Transportation: No Lack of Food: Never True Current Housing: I Have Housing Concerned About Future Housing: No Difficulty Paying Gas/Electric Bills: No Difficulty Paying for Meds: No Currently Unemployed: No Education: High School Diploma/GED Difficulty w/ Childcare or Family Care: No Living arrangements: alone Occupation/Education: occupation 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 Gender identity (if verbalized by the patient): Female Spiritual care concerns: No Meds Home Medications and Allergies Home Medications ?Medication ?Instructions ?Recorded ?Confirmed ?Type multivitamin 1 tablet PO .TIW 04/07/24 08/20/25 History alendronate 35 mg tablet 35 mg PO WEEKLY 08/20/25 08/20/25 History omeprazole 20 mg capsule,delayed 20 mg PO DAILY 08/20/25 08/20/25 History release Allergies Allergy/AdvReac Type Severity Reaction Status Date / Time No Known Allergies Allergy Mild Verified 08/20/25 11:22 Vital Signs Vital Signs - 24 hr 08/23/25 20:00 08/23/25 20:00 08/23/25 22:00 Temperature 36.7 C Pulse Rate 76 76 76 Respiratory Rate 16 16 Blood Pressure 122/71 Pulse Oximetry 98 98 Oxygen Delivery Room Air 08/24/25 00:00 08/24/25 04:00 08/24/25 04:02 Temperature 36.8 C Pulse Rate 68 68 68 Respiratory Rate 18 Blood Pressure 132/54 L Pulse Oximetry 96 Oxygen Delivery 08/24/25 08:00 08/24/25 11:52 08/24/25 12:00 Temperature Pulse Rate 78 93 Respiratory Rate Blood Pressure Pulse Oximetry 96 Oxygen Delivery Room Air 08/24/25 14:00 08/24/25 16:00 Temperature 35.9 C L Pulse Rate 72 81 Respiratory Rate 16 Blood Pressure 119/61 Pulse Oximetry 99 Oxygen Delivery Exam Narrative: Lungs are clear to auscultation bilaterally Cardiovascular regular rate rhythm no murmurs Abdomen soft nontender nondistended Extremities no edema Results Labs 08/24/25 05:51 08/24/25 05:50 Labs: Short CBC 08/24/25 Range/Units 05:51 WBC 7.9 (4.5-10.0) K/mm3 Hgb 13.1 (12.0-15.0) g/dL Hct 39.7 (37.0-47.0) % Plt Count 370 (150-375) k/mm3 BMP 08/24/25 05:50 Sodium 137 Potassium 3.9 Chloride 106 Carbon Dioxide 23 BUN 15 Creatinine 0.45 L Glucose 109 Calcium 8.9 Liver Function 08/24/25 Range/Units 05:50 Total Bilirubin 1.0 (0.2-1.3) mg/dL AST 29 (14-36) U/L ALT 18 (6-35) U/L Alkaline Phosphatase 55 (38-126) U/L Albumin 4.3 (3.5-5.1) g/dL
[2025-08-24 19:39] LABS: CRP < 0.5 mg/dL (<1.0)
[2025-08-25] VITALS: PULSE 78
[2025-08-25 03:43] VITALS: PULSE 70
[2025-08-25 05:28] VITALS: BP 174/60; PULSE 78; RESP 18; TEMP 36.6; O2SAT 98
[2025-08-25] MEDS: ACETAMINOPHEN 325 MG TABLET 650 MG PO ×2 (05:35→09:36)
[2025-08-25 06:21] LABS: Hematocrit 39.6 % (37.0-47.0); Hemoglobin 12.9 g/dL (12.0-15.0); Mean Corpuscular HGB Conc 32.6 g/dl (32-36); Mean Corpuscular Hemoglobin 29.5 pg (26-34); Mean Corpuscular Volume 90.6 fl (80-100); Platelet Count Result 386 k/mm3 (150-375); Red Blood Count 4.37 M/mm3 (4.2-5.4); White Blood Count 6.5 K/mm3 (4.5-10.0)
[2025-08-25 06:41] LABS: Alanine Aminotransferase 24 U/L (6-35); Albumin Level 4.3 g/dL (3.5-5.1); Alkaline Phosphatase 59 U/L (38-126); Anion Gap 7 mmol/L (4-12); Aspartate Amino Transferase 32 U/L (14-36); Bilirubin,Total 0.7 mg/dL (0.2-1.3); Blood Urea Nitrogen 14 mg/dL (7-17); Calcium 9.2 mg/dL (8.4-10.2); Carbon Dioxide 26 mmol/L (22-30); Chloride 105 mmol/L (98-107); Estimated CRCL calculation 83 ml/min; Estimated Glomerular Filt Rate > 60; Glucose 112 mg/dL (65-110); Potassium 3.9 mmol/L (3.4-5.0); Sodium 138 mmol/L (137-145); Total Protein 7.1 g/dL (6.3-8.2)
[2025-08-25 08:00] VITALS: PULSE 74
[2025-08-25] MEDS: PANTOPRAZOLE 40 MG TABLET PO (09:31)
[2025-08-25] MEDS: ASPIRIN 81 MG ENTERIC TABLET PO (09:31)
[2025-08-25] MEDS: CLOPIDOGREL BISULFATE 75 MG TABLET PO (09:31)
[2025-08-25] MEDS: ATORVASTATIN 40 MG TABLET PO (09:31)
[2025-08-25] MEDS: DOCUSATE SODIUM 100 MG CAPSULE PO (09:56)
--- NOTE | 2025-08-25 11:48 | PM.DS ---
DS: Admitting Diagnosis Discharge Date 08/25/25 Admitting Diagnosis Left sided weakness DS: Discharge Diagnosis Discharge Diagnosis (1) Acute CVA (cerebrovascular accident): Code(s): I63.9 - Cerebral infarction, unspecified Status: Acute Plan Acute stroke MRI brain of the right basal ganglia and posterior limb right internal capsule Left sided weakness with facial droop Symptom onset 630pm 08/19/25 CTA head and neck unremarkable MRI brain reviewed and ECHO EF 65-70% Repeat CT head no hemorrhage Continue Aspirin, Plavix x 21 days, and Lipitor LDL 123, A1c 5.3 PT/OT/ST Discussed with neurology for the abvoe recommendatiosn Hypertension BP now 137/62 Continue Lisinopril 10mg daily monitor Leukocytosis, resolved likely stress reaction WBC 13.2, today 7.8 monitor IBS continue home meds GERD Continue Protonix DVT prophylaxis on Sq Lovenox Full code DS: Summary Hospital Course Hospital Course: Upon arrival to the ER on 08/23 patient reported about 630pm yesterday she started having left sided weakness, but thought it would get better however last night when she woke up to use the bathroom she noticed it has worsened prompting her to present to the ER for proper eval adn care. MRI brain showed right basal ganglia and posterior limb right internal capsule infarction, contiue to have left sided weakness, seen by neurologist and recommended DAPT with plavix and aspirin, patient working with PT and will benefit with continue rehab. patient was also found to have thrombocytosis seen by Dr. Muniz ordered work up to further evaluate, patient platelets are trending down, patient is cliniclly stable and being discharged to inpatient rehab. Time Spent with Patient Time attestation: Total time spent providing and/or coordinating discharge services: Exam Narrative: General: alert and comfortable Eyes: EOMI, PERRLA ENNT External ears normal, Neck is supple, no masses, Respiratory systems: Clear to auscultation Cardiovascular S1, S2, normal rhythm, no murmur, rub, or gallop; no thrill or palpable murmurs on palpation. Gastrointestinal: soft, non-tender, and non-distended abdomen with no masses; BS present Skin: no rash, lesions, ulcerations, subcutaneous nodules or induration Musculoskeletal: no abnormality and no tenderness, normal ROM Neurologic: Alert and oriented x3, power 4/5 left sided, left facial droop. Mental Status Exam: normal affect DS: Data Data Completed and Pending Labs on day of discharge: Labs from last 24 hours 08/25/25 08/24/25 08/24/25 06:00 19:34 05:46 WBC 6.5 RBC 4.37 Hgb 12.9 Hct 39.6 MCV 90.6 MCH 29.5 MCHC 32.6 RDW 13.2 Plt Count 386 H MPV 9.1 Sodium 138 Potassium 3.9 Chloride 105 Carbon Dioxide 26 Anion Gap 7 BUN 14 Creatinine 0.49 L Estim Creat Clear Calc 83 Estimated GFR > 60 Glucose 112 H Calcium 9.2 Total Bilirubin 0.7 AST 32 ALT 24 Alkaline Phosphatase 59 C-Reactive Protein < 0.5 Total Protein 7.1 Albumin 4.3 JAK2 V617F Specimen Pending JAK2 V617F Method Pending JAK2 V617F Mutation Pending JAK2 Reflexes Indicated Pending JAK2 V617F Assay Details Pending JAK2 V617F Mut Bckgrnd Pending JAK2 V617F Sign Pathol Pending Discharge Plan Discharge Attending physician on discharge: Linda Kumar Consulting providers: Boy Grant; Justus Muniz; Nico Andres; Tae Watson; Marlon So; Waldemar Saldivar; Manfred Cleaning V.; Justus Kevin; Tres Zapata Discharging Clinician: Godwin Chaney Patient Disposition: Inpatient Rehab Facility Activity: as tolerated Diet: heart healthy Discharge Instructions: Patient to follow up with her primary care provider, neurologist and stage technician as scheduled. Patient Instructions: Stroke (GEN) Patient Language: Yoruba Stand Alone Forms: General Discharge Information Follow-up/Referrals: Justus Muniz MD [Physician, Hematology] Boy Grant MD [Physician, Neurology] Jose Angel Atkinson MD [Primary Care Provider, [facility]] Discharge Medications: New aspirin 81 mg Tablet,Delayed Release (Dr/Ec) 81 mg PO QAM Qty: 30 0RF atorvastatin 40 mg Tablet 40 mg PO DAILY Qty: 30 0RF buspirone 5 mg Tablet 5 mg PO Q12HR PRN (Reason: Anxiety) Qty: 30 0RF clopidogrel 75 mg Tablet 75 mg PO QAM Qty: 30 0RF docusate sodium 100 mg Capsule 100 mg PO Q12HR Qty: 30 0RF polyethylene glycol 3350 [Miralax] 17 gram Powder In Packet 17 g PO BID Qty: 14 0RF lisinopril 10 mg Tablet 10 mg PO DAILY Qty: 30 0RF Continued multivitamin Tablet 1 tablet PO .TIW alendronate 35 mg tablet 35 mg PO WEEKLY Patient Comments: takes on Saturday omeprazole 20 mg capsule,delayed release(DR/EC) 20 mg PO DAILY Date of admission: 08/21/25 13:35 Primary Care Provider: Jose Angel Atkinson Admitting Provider: Linda Kumar Attending physician on admission: Godwin Chaney Condition: Stable
[2025-09-02 15:09] LABS: CALR + MPL + E12-E15 YES YES
== END 2025-08-25 13:00 | DRG 65 ==
LOC: ANHED 06:20 → ANH3MEDSUR 10:07
PROVIDERS: General Practice; Internal Medicine; Internal Medicine Hematology & Oncology; Admitting Provider General Practice; Emergency Provider Student in an Organized Health Care Education/Training Program; PCP Family Medicine Adolescent Medicine; Visit Provider Family Medicine
DX: I63.9 Cerebral infarction, unspecified (principal); G81.94 Hemiplegia, unspecified affecting left nondominant side; I10 Essential (primary) hypertension; K58.9 Irritable bowel syndrome, unspecified; K21.9 Gastro-esophageal reflux disease without esophagitis; K76.0 Fatty (change of) liver, not elsewhere classified; R29.703 NIHSS score 3; R29.810 Facial weakness; M85.80 Other specified disorders of bone density and structure, unspecified site; D72.829 Elevated white blood cell count, unspecified; D75.839 Thrombocytosis, unspecified; F10.90 Alcohol use, unspecified, uncomplicated; Y93.01 Activity, walking, marching and hiking; Z90.49 Acquired absence of other specified parts of digestive tract; Z82.49 Family history of ischemic heart disease and other diseases of the circulatory system
CPT/HCPCS: 36415; 70450; 70496; 70498; 70553; 71045; 72100; 73502; 80053; 80061; 80307; 81003; 81219; 81270; 82550; 82728; 82948; 83036; 83540; 83550; 83605; 83735; 84484; 85025; 85027; 85610; 85730; 86140; 93005; 93306; 96374; 97110; 97161; 97165; 97530; 99285; A9270; A9577; G0378; J2405; Q9967